=== PATIENT | male | born 1940 | race Caucasian/White ===

== ENCOUNTER 2022-09-25 21:09 | Inpatient (IN) | payer OTHER, SELFPAY ==
[2022-09-25] VITALS (14 sets, daily range): BP systolic 80–138; BP diastolic 53–100; PULSE 89–113; RESP 14–20; TEMP 35.6–36.2; O2SAT 92–100; BMI 24.1; BMI 21.2
--- NOTE | 2022-09-25 21:15 | EKG12_ITS ---
Test Reason : UNRESPONSIVWE Blood Pressure : / mmHG Vent. Rate : 093 BPM Atrial Rate : 000 BPM P-R Int : 000 ms QRS Dur : 094 ms QT Int : 364 ms P-R-T Axes : 000 086 254 degrees QTc Int : 452 ms Atrial fibrillation Cannot rule out Anterior infarct , age undetermined Abnormal ECG Confirmed by BOBBI KEE, NAYELY ([id number]), photographic editor JOSE JEFFERSON ([id number]) on 09/27/2022 9:13:40 AM Referred By: JOSE DE JESUS Confirmed By:NAYELY MARTINES MD
[2022-09-25 21:27] LABS: Bacteria 0 SEEN /hpf (None Seen); Mucous, Urine 0 SEEN /hpf (<or=2+); White Blood Cells 0 SEEN /hpf (0-5)
[2022-09-25 21:29] LABS: Color, Urine Yellow (Yellow); Glucose, Dipstick Normal (Normal); Ketone-Dipstick Negative (Negative); Leukocyte Esterase-Dipstick Negative /ul (Negative); Nitrite-Dipstick Negative (Negative); Occult Blood-Urine 10 /ul (Negative); Protein-Dipstick 100 mg/dl (Negative); Specific Gravity, Urine 1.025 (1.002-1.030); Urine Bilirubin Dipstick Negative (Negative); Urine Clarity Sl. Cloudy (Clear); Urine Urobilinogen 1 mg/dl (Normal)
[2022-09-25 21:31] LABS: Absolute Lymphocyte Count 0.76 X10^3/uL (0.83-4.51); Absolute Neutrophil Count 10.1 X10^3/uL (2.0-7.7); Basophil# 0.06 X10^3/uL; Basophil% 0.5 % (0-1); Lymphocyte # 0.76 X10^3/ul (0.83-4.51); Lymphocyte % 6.2 % (19-41); Mean Corpuscular Hgb 28.6 pg (27.0-32.0); Mean Corpuscular Volume 105.7 fL (80-94); Mean Platelet Vol. 11.1 fl (6.2-12.0); Monocyte# 1.11 X10^3/uL; NRBC Flagged by Analyzer 0 % (0-5); Neutrophil # 10.14 X10^3/uL (2.7-7.7); Neutrophil % 82.2 % (47-70); Platelet Count 133 K/mm3 (150-450); White Blood Count 12.3 K/mm3 (4.4-11.0)
--- NOTE | 2022-09-25 21:31 | EDS_ITS ---
HPI History of Present Illness Chief Complaint: CPR Detail of Chief Complaint: Decreased mental status at home Informant: family and EMS Onset/Context/Timing Onset: Today and Hours Context: Gradual Onset Timing: Continuous Current Severity: Severe Maximum Severity: Severe Associated Symptoms Associated Symptoms: abdominal pain, chest pain, chills, cough, fever, vomiting, diarrhea, palpitations and suicidal thoughts Narrative Narrative: 82-year-old male past medical history of prior GI bleed, coronary artery disease, COPD on 3 L at home. He is on chronic anticoagulation for A-fib. He takes Eliquis. Patient is unable to give any history due to having a i-gel airway in place. I have been intubated him. Per the son and I believe [id number] he recently just in the last week or so moved from [place] to [place] to be with family. They state he was in [facility] within the last 2 months. They found coronary artery disease but due to his overall medical condition they did not feel like he was an operative candidate. Reportedly had a GI bleed recently and was hospitalized for that. Patient had no complaints the last several days. He did have increased swelling in his feet that got better. Today had no complaints. He was not complaining of headache nor chest pain or shortness of breath. He became unresponsive in a recliner. They were really unable to arouse him and called the squad. Squad thought the family had started CPR they told me they had not. Prior similar symptoms: No Recent Illness/Hospitalization: Yes PFSH PFSH Medical History unable to obtain no medical history (COPD on 3 L. History of A-fib. Chronic anticoagulation on Eliquis. Recent GI bleed.) Allergy/AdvReac Type Severity Reaction Status Date / Time No Known Allergies Allergy Verified 09/25/22 21:41 ROS ROS ED ROS Narrative Family denies any recent illness the last several days. Unable to obtain any review of systems or history from the patient due to being intubated. Review of Systems ROS Unobtainable: due to endotracheal tube EXAM Physical Exam Narrative Exam Narrative: 82-year-old male brought in by squad. Unresponsive to either noxious or verbal stimuli. Not moving his extremities. I-gel in place. He does have a bounding radial, carotid and femoral pulses. H EENT exam eyes are closed. Moist weeks membranes. Thick phlegm in the posterior pharynx. Neck nontender. No JVD. Trachea midline. Lungs coarse breath sounds bilaterally. No wheezing. Heart A-fib rate of 93. Chest wall no gross abnormalities. No crepitance. No bony deformities. Abdomen is soft, nontender, nondistended. No signs of obstruction. External exam unremarkable. Montgomery catheter placed by nurses. Clear yellow urine. Extremities he is bilateral trace ankle and foot edema. Currently he is not really moving his extremities. There is no deformities. Neurologically he is intubated. He does not spontaneously open his eyes. He does have some apneic at times of breathing. He is not moving his extremities. He is not trying to talk. He is basically unresponsive. Const Vital Signs: 09/25/22 21:10 09/25/22 21:28 09/25/22 21:34 Temperature 96.0 F L Temperature Source Temporal Pulse Rate 94 105 H 104 H Respiratory Rate 16 14 Blood Pressure 122/70 H 95/61 111/87 H Blood Pressure Mean 87 72 95 Pulse Ox 100 Oxygen Delivery Method Ambu-Bag Mechanical Ventilator Ambu-Bag Positive well nourished and well developed; Negative for obese, cachectic, contractures or unkempt General Appearance ED: well developed and pallor; Negative for unkempt, cachectic, contractures or NAD Nutritional Appearance: Negative for cachectic or obese HEENT normocephalic and atraumatic; Negative for trauma, cyanosis of lips/distal nose or tenderness Eyes PERRL; Negative for EOMs intact bilaterally General Eye ED: Negative for pale conjunctiva Neck No full ROM, no lymphadenopathy, supple and no JVD Carotids: Negative for other Cardio regular rate, regular rhythm, S1 normal heart sound and S2 normal heart sound Cardio Narrative: A-fib rate in 90s. Rhythm: abnormal rhythm GI non-tender, non-distended and no masses Inspection: Negative for abdominal distention Auscultation: normoactive bowel sounds Palpation: soft; Negative for tender or guarding Neuro No oriented x3 Neuro Narrative: Unresponsive. Intubated. Not moving his extremities. Agonal attempts of breathing. Sensorium / Orientation: Negative for alert Motor Exam: Negative for strength 5/5 throughout Psych Negative for mental status grossly normal Psych Narrative: Unable to assess at this time. Appearance: Negative for unkempt Skin General Skin Exam: pallor; Negative for jaundice Lesions: no lesions Rashes: no rashes Trauma: Negative for abrasion or laceration MDM MDM MDM Narrative Medical decision making narrative: 82-year-old male reportedly recently hospitalized in [place] has known coronary disease that they felt was nonoperative. History of COPD on 3 L at home. History of A-fib on Eliquis. Found unresponsive today at home by family. Squad was called. He presented with i-gel airway in place that was converted over to an ET tube on first attempt. He has thick white tracheal secretions. Received a liter of normal saline. Differential would include sepsis, respiratory failure, cardiovascular collapse, acute coronary event, versus many etiologies. Respiratory was having difficulty ventilating the patient and was getting very low tidal volume sleeping on pressure support which is doing much better. He was also given aerosol treatments and will receive IV Solu-Medrol. His chest x- ray looks like a right lower lobe pneumonia he will be started on IV Zosyn and vancomycin. I will speak to the hospitalist about admission. Spoke to the patient's son at length. They want him treated aggressively. However if his heart stops they do not want CPR or him to be shocked. They are comfortable at this time with IV fluids, antibiotics, medications as needed. And ventilatory support. History & Record Review Discussion w/independent historian: EMS personnel and Family Additional record(s) reviewed:: No prior records Lab Data Attestation: I reviewed the patient's lab results. Lab results narrative: CBC shows a white count 12.3. H&H of 10.0 and 37. Platelets of 133,000. We have no old labs available for comparison. He is never been to this facility. Chemistries show a gap of 0. BUN 35 creatinine 1. Glucose 146. Liver enzymes are normal. 0.6. PT/INR 13 and 1. PTT 29. Urinalysis is unremarkable. No nitrites. No white or red cells. No bacteria. Chest x-ray ET tube is in good position. Several centimeters above the mario. Both lung live are expanded. No pneumothorax. Looks like the right lower lobe pneumonia. Normal cardiac silhouette. EKG is A-fib with a rate of 93. ABG is consistent with a respiratory acidosis with a pH of 7.161. PCO2 of 128. PO2 of 417. O2 sat 99%. Labs: Laboratory Results - last 24 hr 09/25/22 09/25/22 09/25/22 21:10 21:10 21:10 WBC 12.3 H RBC 3.50 L Hgb 10.0 L Hct 37.0 L MCV 105.7 H MCH 28.6 MCHC 27.0 L RDW Std Deviation 59.0 H RDW Coeff of Cory 15.0 H Plt Count 133 L MPV 11.1 Immature Gran % (Auto) 2.100 H Neut % (Auto) 82.2 H Lymph % (Auto) 6.2 L [place] % (Auto) 9.0 Eos % (Auto) 0.0 Baso % (Auto) 0.5 Absolute Neuts (auto) 10.1 H Absolute Lymphs (auto) 0.76 L Nucleated RBC % 0 PT 13.2 INR 1.0 APTT 29.6 Sodium 142 Potassium 4.7 Chloride 98 Carbon Dioxide 44.0 H Anion Gap 0 L BUN 35 H Creatinine 1.05 Estim Creat Clear Calc 53.38 Est GFR (MDRD) Af Amer 87 Est GFR (MDRD) Non-Af 72 BUN/Creatinine Ratio 33.3 H Glucose 146 H Lactic Acid Calcium 9.0 Total Bilirubin 0.30 AST 31 ALT 37 Alkaline Phosphatase 77 Troponin I High Sens 34 Total Protein 6.8 Albumin 2.8 L Globulin 4.0 Albumin/Globulin Ratio 0.7 L Urine Color Urine Clarity Urine pH Ur Specific [place] Urine Protein Urine Glucose (UA) Urine Ketones Urine Occult Blood Urine Nitrite Urine Bilirubin Urine Urobilinogen Ur Leukocyte Esterase Urine RBC Urine WBC Ur Squamous Epith Cells Urine Bacteria Hyaline Casts Urine Mucus 09/25/22 09/25/22 21:10 21:15 WBC RBC Hgb Hct MCV MCH MCHC RDW Std Deviation RDW Coeff of Cory Plt Count MPV Immature Gran % (Auto) Neut % (Auto) Lymph % (Auto) [place] % (Auto) Eos % (Auto) Baso % (Auto) Absolute Neuts (auto) Absolute Lymphs (auto) Nucleated RBC % PT INR APTT Sodium Potassium Chloride Carbon Dioxide Anion Gap BUN Creatinine Estim Creat Clear Calc Est GFR (MDRD) Af Amer Est GFR (MDRD) Non-Af BUN/Creatinine Ratio Glucose Lactic Acid 0.6 Calcium Total Bilirubin AST ALT Alkaline Phosphatase Troponin I High Sens Total Protein Albumin Globulin Albumin/Globulin Ratio Urine Color Yellow Urine Clarity Sl. Cloudy Urine pH 5.0 Ur Specific [place] 1.025 Urine Protein 100 H Urine Glucose (UA) Normal Urine Ketones Negative Urine Occult Blood 10 H Urine Nitrite Negative Urine Bilirubin Negative Urine Urobilinogen 1 H Ur Leukocyte Esterase Negative Urine RBC 0-5 SEEN Urine WBC 0 SEEN Ur Squamous Epith Cells 0-5 SEEN Urine Bacteria 0 SEEN Hyaline Casts 10-25 SEEN Urine Mucus 0 SEEN Radiography Chest X-Ray - ED: 1 View, Read by ED Physician and Right Infiltrate Diagnostic Testing: Clinical Impression(s) from Imaging Studies Chest X-Ray 09/25/22 21:35 IMPRESSION: 1. Endotracheal tube with the tip above the mario. 2. Nasogastric tube with the tip below the diaphragm. 3. Emphysema with bibasilar atelectasis. Electronically Signed: Wicho Pena MD at 22:02 EDT , Chest x-ray, portable, single view, interpreted by myself shows ET tube in good position above the mario. OG in good position in the stomach. Bilateral lung live are inflated. Right lower lobe pneumonia. Chronic changes consistent with COPD. No pneumothorax. Chronic changes. Normal cardiac silhouette. Rhythm Strip Rhythm Strip: A-fib Rate: 93 Ectopy: None EKG Initial EKG: Attestation: I personally reviewed and interpreted this EKG as follows: Interpretation: No Acute Injury Pattern and Atrial Fibrillation Comments: Acute atrial fibrillation rate of 93 no acute signs of NH or ischemia. No old EKG available for comparison. Prior EKG tracings: not available for review Prior: No Prior Procedures Other Procedures Procedure(s): Tracheal intubation: Use Mac blade. Placed 7/2 ET tube on first attempt. Thick secretions posteriorly in the pharynx and trachea. Suctioned and sent for sputum culture. Bilateral breath sounds heard with bagging. Pulse ox 100% on ventilator. No sedation was required. Critical Care Time Critical Care Time: Yes Critical care time (excluding procedures): 30-74 minutes, Including time spent:, Discussing w/Patient &/or Family/Parking Lot Attendant And Cashier, Discussing w/Consultants, Arranging Admission or Transfer, Performing Direct Patient Care at Bedside and - (33 min) Discharge Plan Dx/Rx/DC Orders Clinical Impression: Acute respiratory failure, Endotracheally intubated, History of COPD, History of CAD (coronary artery disease), History of GI bleed, History of atrial fibrillation, Chronic anticoagulation, Pneumonia, Acute respiratory acidosis, Anemia Disposition Disposition: Acute Care Hospital [facility]
[2022-09-25] MEDS: 0.9% Normal Saline 1,000 ML 999 ML IV (21:32)
[2022-09-25] MEDS: LORazepam 2 MG/ML Syringe IV (21:33)
--- NOTE | 2022-09-25 21:35 | RAD_ITS ---
STUDY: X-RAY CHEST REASON FOR EXAM: Male, 82 years old. full arrest TECHNIQUE: Single AP portable view of the chest. COMPARISON: None. FINDINGS: Endotracheal tube with the tip approximately 6 cm above the mario. Nasogastric tube with tip below the diaphragm. There is hyperinflation of the lungs consistent with chronic obstructive lung disease (COPD). Alveolar opacities in both lung bases consistent with bibasilar atelectasis There is no demonstrated pleural abnormality. Normal size heart. Normal mediastinum and alexandro. Normal visualized pulmonary arteries. Normal visualized aortic arch and descending thoracic aorta. Normal visualized thoracic spine. Normal visualized ribs, clavicles, and shoulders. There is no demonstrated abnormality of the visualized soft tissue structures of the upper abdomen. RAD/Chest 1 View (Portable) IMPRESSION: 1. Endotracheal tube with the tip above the mairo. 2. Nasogastric tube with the tip below the diaphragm. 3. Emphysema with bibasilar atelectasis. Electronically Signed: Wicho Pena MD at 22:02 EDT ,
[2022-09-25 21:37] LABS: Red Blood Cells-Urine 0-5 SEEN /hpf (0-5); Squamous Epithelial Cells - UA 0-5 SEEN /hpf (0-5)
[2022-09-25 21:38] LABS: Hyaline Cast 10-25 SEEN /lpf (0-5)
[2022-09-25 21:39] LABS: Partial Thromboplast Time 29.6 Seconds (24.1-36.2); Prothrombin Time (Protime)PT. 13.2 SECONDS (11.7-14.9)
[2022-09-25 21:51] LABS: ALB/GLOB Ratio 0.7 RATIO (0.9-2.4); AST(SGOT) 31 U/L (15-37); Alanine Aminotransfer ALT/SGPT 37 U/L (16-61); Albumin, Serum 2.8 g/dL (3.2-5.0); Alkaline Phosphatase 77 U/L (45-117); Anion Gap 0 (5-15); BUN 35 mg/dL (7-18); BUN/Creat Ratio 33.3 RATIO (10-20); Chloride 98 mmol/L (98-107); Creatinine, Serum 1.05 mg/dL (0.70-1.30); EST Glomerular Filtration Rate 72 mL/min (>60); Est Glom Filt Rate - Afr Amer 87 mL/min (>60); Estimated Creatinine Clearance 53.38 ml/min; Glucose 146 mg/dL (74-106); Potassium 4.7 mmol/L (3.5-5.1); Protein, Total 6.8 g/dL (6.4-8.2); Sodium Level 142 mmol/L (136-145); Troponin-I HS 34 pg/mL (3.0-78.0)
[2022-09-25 21:56] LABS: Lactic Acid 0.6 mmol/L (0.4-1.9)
[2022-09-25] MEDS: Propofol 10MG/Ml 1,000 MG/100 ML Bottle 4.3 MG CONT INF (21:56)
[2022-09-25] MEDS: MethylPREDNISolone 125 MG/2 ML Vial IV (22:02)
[2022-09-25] MEDS: Ceftriaxone 1 GM/50 ML BAG IV (22:03)
[2022-09-25 22:07] LABS: Allen Test Positive; Base Excess 17 mmol/L (-2 to +2); Bicarbonate 45.8 mmol/L (22-26); Blood Gas Specimen Type ART; FI02 100; O2 Delivery Device Bagging; PO2 418 mmHG (75-100); SITE L Radial; SO2 100 % (95-99); Total Carbon Dioxide 50 mmol/L; pCO2 128.2 mmHg (35-45); pH 7.16 (7.35-7.45)
--- NOTE | 2022-09-25 22:07 | PCM.HP.STD ---
HPI - General General Date of Admission: 09/25/22 Date of Service: 09/25/22 Chief Complaint: Unresponsive HPI Narrative MOISÉS HILL, is a 82 M with a significant history of COPD; atrial fibrillation and tobacco abuse who presents emergency department with unresponsiveness. Reportedly patient became unresponsive whiles in a recliner. Reportedly patient's used to live at [place]. He came to live with his son about 3 days before presentation. He was admitted at [facility] in [place] for about 2 weeks and then was discharged to a rehab facility and then sent back to [facility]. Reportedly at [facility] a lump was taken from his colon. Also he was found to have a blockage in his coronary. However, because of his age he was considered not to be surgical candidate. On the day of presentation a his son who was at the bedside and who the patient came to live with him after relocating from [place], 3 days before presentation stated that patient was drooling and then he became unresponsive and was gasping for air. Patient did not require any CPR. He was given 500mL bolus by paramedics. At the emergency department he was given additional 1 L bolus normal saline. Reportedly patient's bilateral feet has been swollen since he came to live with his son and family thinks that the swelling has improved since presentation. [facility] Medical History History of atrial fibrillation History of COPD Medical History no medical history Home Medications albuterol sulfate 90 mcg/actuation aerosol inhaler 1 puff inhalation Q6H Check with primary doctor 09/26/22 [History Last Taken Unknown] apixaban 2.5 mg PO/SL BID Check with primary doctor 09/26/22 [History Last Taken Unknown] aripiprazole 5 mg tablet 5 mg PO DAILY Check with primary doctor 09/26/22 [History Last Taken Unknown] cyanocobalamin (vitamin B-12) 1 cap PO/SL DAILY Check with primary doctor 09/26/22 [History Last Taken Unknown] digoxin 125 mcg (0.125 mg) tablet 125 mcg PO QODAY Check with primary doctor 09/26/22 [History Last Taken Unknown] finasteride 5 mg tablet 5 mg PO DAILY Check with primary doctor 09/26/22 [History Last Taken Unknown] furosemide 20 mg tablet 20 mg PO DAILY PRN Dyspnea 09/26/22 [History Last Taken Unknown] magnesium oxide 1 tab PO/SL BID magnesium replacement 09/26/22 [History Last Taken Unknown] metoprolol succinate 100 mg tablet,extended release 24 hr 100 mg PO DAILY heart rate 09/26/22 [History Last Taken Unknown] metoprolol tartrate 150 mg PO/SL BID Check with primary doctor 09/26/22 [History Last Taken Unknown] pantoprazole 40 mg tablet,delayed release (Protonix) 40 mg PO DAILY gerd 09/26/22 [History Last Taken Unknown] tamsulosin 0.4 mg capsule 0.4 mg PO DAILY Check with primary doctor 09/26/22 [History Last Taken Unknown] Allergy/AdvReac Type Severity Reaction Status Date / Time No Known Allergies Allergy Verified 09/25/22 21:41 Family History (Updated 09/25/22 @ 22:[address] Baldev Perez MD) Other S/P colon polypectomy Surgical History unable to obtain unable to obtain Social History Smoking Status: Current every day smoker tobacco type: cigarettes ROS Review of Systems ROS Unobtainable: other Details: Pertinent positives and pertinent negatives that could be provided by patient's family is as noted in HPI. All other systems were reviewed patient's family did not know or they were negative. Vital Signs Vital Signs Vital Signs: 09/25/22 21:10 09/25/22 21:28 09/25/22 21:34 Temperature 96.0 F L Temperature Source Temporal Pulse Rate 94 105 H 104 H Respiratory Rate 16 14 Blood Pressure 122/70 H 95/61 111/87 H Blood Pressure Mean 87 72 95 Pulse Ox 100 Oxygen Delivery Method Ambu-Bag Mechanical Ventilator Ambu-Bag 09/25/22 21:58 Temperature Temperature Source Pulse Rate Respiratory Rate Blood Pressure Blood Pressure Mean Pulse Ox 100 Oxygen Delivery Method Mechanical Ventilator Weight Weight: 72.121 kg Body Mass Index (BMI) 24.1 Physical Exam Narrative Physical exam: General: Intubated and sedated mechanical ventilation. Head: Normocephalic, atraumatic, no tenderness Eyes: Intubated sedated mechanical ventilation. ENT, no trauma, no rhinorrhea Neck: Nontender, No thyromegaly. CVS: Regular rate and rhythm. S1-S2 present. No murmur, gallop or rub. Respiratory : Diminished, wheezes, rhonchi.Chest wall nontender Abdomen: Soft, nontender, nondistended, normal bowel sounds, no masses : Deferred Back: Nontender, no CVA tenderness. Extremities: Swelling of bilateral feet. Skin: Normal color, no trauma, abrasions Neuro: Intubated sedated mechanical ventilation Psychiatry: Intubated sedated mechanical ventilation Results Lab / Micro Data Result Diagrams: 09/25/22 21:10 09/25/22 21:10 Labs: Laboratory Results - last 24 hr 09/25/22 21:10: Sodium 142, Potassium 4.7, Chloride 98, Carbon Dioxide 44.0 H, Anion Gap 0 L, BUN 35 H, Creatinine 1.05, Estim Creat Clear Calc 53.38, Est GFR (MDRD) Af Amer 87, Est GFR (MDRD) Non-Af 72, BUN/Creatinine Ratio 33.3 H, Glucose 146 H, Calcium 9.0, Total Bilirubin 0.30, AST 31, ALT 37, Alkaline Phosphatase 77, Troponin I High Sens 34, Total Protein 6.8, Albumin 2.8 L, Globulin 4.0, Albumin/Globulin Ratio 0.7 L 09/25/22 21:10: WBC 12.3 H, RBC 3.50 L, Hgb 10.0 L, Hct 37.0 L, MCV 105.7 H, MCH 28.6, MCHC 27.0 L, RDW Std Deviation 59.0 H, RDW Coeff of Cory 15.0 H, Plt Count 133 L, MPV 11.1, Immature Gran % (Auto) 2.100 H, Neut % (Auto) 82.2 H, Lymph % (Auto) 6.2 L, [place] % (Auto) 9.0, Eos % (Auto) 0.0, Baso % (Auto) 0.5, Absolute Neuts (auto) 10.1 H, Absolute Lymphs (auto) 0.76 L, Nucleated RBC % 0 09/25/22 21:10: PT 13.2, INR 1.0, APTT 29.6 09/25/22 21:10: Lactic Acid 0.6 09/25/22 21:15: Urine Color Yellow, Urine Clarity Sl. Cloudy, Urine pH 5.0, Ur Specific [place] 1.025, Urine Protein 100 H, Urine Glucose (UA) Normal, Urine Ketones Negative, Urine Occult Blood 10 H, Urine Nitrite Negative, Urine Bilirubin Negative, Urine Urobilinogen 1 H, Ur Leukocyte Esterase Negative, Urine RBC 0-5 SEEN, Urine WBC 0 SEEN, Ur Squamous Epith Cells 0-5 SEEN, Urine Bacteria 0 SEEN, Hyaline Casts 10-25 SEEN, Urine Mucus 0 SEEN Micro: Microbiology 09/25/22 21:35 Sputum, Induced/Lukens Gram Stain - Preliminary Rhythm Strip Rhythm Strip: A-fib Rate: 93 Ectopy: None Radiology Impression Chest X-Ray 09/25/22 21:35 IMPRESSION: 1. Endotracheal tube with the tip above the mario. 2. Nasogastric tube with the tip below the diaphragm. 3. Emphysema with bibasilar atelectasis. Electronically Signed: Wicho Pena MD at 22:02 EDT , Assessment & Plan Assessment/Plan (1) Hypercapnic respiratory failure: (2) Pneumonia: (3) COPD exacerbation: PLAN: Plan Sepsis secondary to pneumonia The patient presented with sepsis due to (pneumonia) with acute sepsis related organ dysfunction as evidenced by (hypotension and acute hypercapnic respiratory failure). SIRS criteria: Temperature of less than 96.8 Fahrenheit on presentation. Heart rate more than 90 WBC more than 12,000 organ dysfunction: SBP less than 90 Acute respiratory failure Lactic acid 0.6. With recent admission at [facility] discussed with ED doctor who started patient on vancomycin and Zosyn. Vancomycin and Zosyn continued. Blood cultures x2 ordered emergency department, follow. Urine culture and sputum culture ordered emergency department, follow. Streptococcus urine antigen and Legionella urine antigen ordered. Radiologist impression of chest x-ray:1.? Endotracheal tube with the tip above the mario. 2.? Nasogastric tube with the tip below the diaphragm. 3.? Emphysema with bibasilar atelectasis. Check chest x-ray was independently visualized and interpreted I agree with the interpretation. Additionally the infiltrates in the right side of the lung. Trend CBC and CMP. Admit intensive care unit. Passenger T[employer] Inspector consult. Acute hypercapnic respiratory failure/acute encephalopathy ABG with initial pH of 7.16 and PCO2 of 128.2. Started on vent at the emergency department; after Igel was replaced with ET tube. Admitted to ICU mechanical ventilation. Passenger T[employer] Inspector consult. Trend ABG. GI prophylaxis and DVT prophylaxis ordered. Scheduled DuoNeb. Albuterol ordered. Solu-Medrol ordered. A-fib A-fib with a controlled rate, stable. Eliquis continued. Digoxin level ordered emergency department, normal. Hold metoprolol secondary to hypotension. Anemia Hemoglobin presentation was 10. Unclear whether acute or chronic. Ordered to obtain records from [facility] sent from the ED. Trend CBC. DVT prophylaxis: Not indicated as patient is on Eliquis, Eliquis continued. Sepsis Attestation Sepsis Alert: Yes Sepsis Attestation: Sepsis Ruled Out Date exam was performed: 09/25/22 Time exam was performed: 03:10 Possible Source of Sepsis: Pulmonary Sepsis Organ Dysfunction Criteria Present: SBP < 90 mmHg or MAP < 65 mmHg and Acute Respiratory Failure (New need for BiPAP/CPAP or MV) Fluid Resuscitation Fluid resuscitation indicated?: Yes Fluid Resuscitation ordered: Lesser volume fluid bolus ordered Amount of fluid ordered: 1,500 Reason for lesser fluid bolus:: BP Responded to a lesser volume Charges/Coding Visit Charges Inpatient E&M: 26357 Init Hosp L3
[2022-09-25 22:08] LABS: Digoxin Level 0.81 ng/mL (0.80-2.00)
--- NOTE | 2022-09-25 22:24 | CPS ---
CRITICAL ABG VALUES, DR. STEWART AWARE
--- NOTE | 2022-09-25 22:29 | CT_ITS ---
STUDY: CT BRAIN WITHOUT CONTRAST REASON FOR EXAM: Male, 82 years old. mental status change RADIATION DOSAGE (If Supplied By Facility): CTDIvol = ( 44.99 ) mGy, DLP = ( 931.09 ) mGycm TECHNIQUE: Transaxial CT imaging of the brain was performed without administration of intravenous contrast material. Individualized dose optimization techniques were used for this CT. COMPARISON: No relevant priors. FINDINGS: Normal soft tissue structures. Normal calvarium. Normal size ventricles and extra-axial spaces for the patient''s age. Mild white matter microangiopathic ischemic changes of the cerebral hemispheres. Normal basal ganglia and thalami. Normal brainstem. Normal cerebellum. There is no intracranial hemorrhage. There are no findings of an acute ischemic infarction. Normal visualized paranasal sinuses. CT/Brain/Head without Contrast IMPRESSION: No acute intracranial pathology of the brain. Electronically Signed: Cachorro Aguilera DO at 23:30 EDT ,
[2022-09-25] MEDS: Albuterol 2.5 MG/3 ML VIAL.NEB. INHALATION ×2 (22:44)
[2022-09-25] MEDS: Ipratropium/Albuterol Sulfate 3 ML AMPUL.NEB INHALATION (22:44)
[2022-09-26] VITALS (41 sets, daily range): BP systolic 94–168; BP diastolic 55–99; PULSE 84–128; RESP 16–27; TEMP 36.2–38; O2SAT 92–115; BMI 21.2
--- NOTE | 2022-09-26 00:09 | ED.RN ---
2115: Concerned for patient pulling at tubes, restraints applied.
[2022-09-26] MEDS: Ipratropium/Albuterol Sulfate 3 ML AMPUL.NEB INHALATION ×7 (00:12→23:05)
[2022-09-26 00:16] LABS: Allen Test Positive; Base Excess 16 mmol/L (-2 to +2); Bicarbonate 42.3 mmol/L (22-26); Blood Gas Specimen Type ART; FI02 40; Mode AC; O2 Delivery Device ET Tube; PEEP 5; PO2 108 mmHG (75-100); RR 16; SITE R Radial; SO2 97 % (95-99); Total Carbon Dioxide 45 mmol/L; Vt 450; pCO2 80.5 mmHg (35-45); pH 7.33 (7.35-7.45)
[2022-09-26] MEDS: fentaNYL drip 100 ML 2.5 MCG CONT INF (00:30)
--- NOTE | 2022-09-26 00:32 | CPS ---
Critical blood gas values, Dr. Perez aware
[2022-09-26] MEDS: 0.9% Saline Lock 10 ML Syringe IV (00:34)
--- NOTE | 2022-09-26 00:45 | PCM.RX.CS ---
Consult Pharmacy has been consulted to manage selected antiobiotic: Vancomycin Type of Consult: New start Suspected Infection: Pneumonia Prior Doses of Antibiotics Received/Current Regimen: Medications Vancomycin HCl 750 mg/ Sodium (Chloride) 265 mls @ 250 mls/hr IV Q12H KEELY Discontinued Medications Vancomycin HCl 1,750 mg/ (Sodium Chloride) 535 mls @ 250 mls/hr IV X1 ONE Stop: 09/26/22 00:22 Last Admin: 09/25/22 23:24 Dose: 250 mls/hr Labs: Sodium 142 mmol/L (136-145) 09/25/22 21:10 Potassium 4.7 mmol/L (3.5-5.1) 09/25/22 21:10 Chloride 98 mmol/L (98-107) 09/25/22 21:10 Carbon Dioxide 44.0 mmol/L (21.0-32.0) H 09/25/22 21:10 Anion Gap 0 (5-15) L 09/25/22 21:10 BUN 35 mg/dL (7-18) H 09/25/22 21:10 Creatinine 1.05 mg/dL (0.70-1.30) 09/25/22 21:10 Est GFR (MDRD) Af Amer 87 mL/min (>60) 09/25/22 21:10 Est GFR (MDRD) Non-Af 72 mL/min (>60) 09/25/22 21:10 BUN/Creatinine Ratio 33.3 RATIO (10-20) H 09/25/22 21:10 Glucose 146 mg/dL (74-106) H 09/25/22 21:10 Microbiology: Microbiology 09/25/22 21:35 Sputum, Induced/Lukens Gram Stain - Preliminary Weight used for dosin kg Estimated Creatinine Clearance: 53 Goal Trough: 15-20 mcg/mL Pharmacy Plan for Drug Dosing: Pharmacy Service will continue to monitor and adjust dosing as required. Follow-Up Labs: Trough Vancomycin Labs to be done on [date and time ordered]: 09/27/22 @1100
[2022-09-26 01:15] LABS: CPK Total, Creatine Kinase 28 U/L (39-308); Triglycerides 70 mg/dL
[2022-09-26] MEDS: Methylprednisolone Sod Succ 40 MG/ML VIAL IV ×3 (05:11→22:00)
[2022-09-26] MEDS: guaiFENesin 10 ML UDC (200MG/10ML) 20 ML NG ×4 (05:11→23:12)
[2022-09-26] MEDS: CHLORHEXIDINE GLUC 2% CLOTH 1 EACH TOWELETTE TOPICAL (05:15)
[2022-09-26 05:18] LABS: Absolute Neutrophil Count 9.9 X10^3/uL (2.0-7.7); Basophil# 0.02 X10^3/uL; Basophil% 0.2 % (0-1); Hematocrit 32.3 % (40-54); Hemoglobin 9.1 g/dL (13.0-16.5); Lymphocyte % 1.9 % (19-41); Mean Corp Hgb Conc 28.2 g/dL (32-36); Mean Corpuscular Hgb 28.3 pg (27.0-32.0); Mean Corpuscular Volume 100.6 fL (80-94); Mean Platelet Vol. 11.4 fl (6.2-12.0); Monocyte# 0.29 X10^3/uL; Monocyte% 2.8 % (0-10); NRBC Flagged by Analyzer 0 % (0-5); Neutrophil # 9.91 X10^3/uL (2.7-7.7); Neutrophil % 94.5 % (47-70); POSITIVE DIFFERENTIAL YES; Platelet Count 106 K/mm3 (150-450); RBC Distribution Width CV 15.2 % (11.6-14.6); Red Blood Count 3.21 M/mm3 (4.6-6.2); White Blood Count 10.5 K/mm3 (4.4-11.0)
[2022-09-26 05:19] LABS: Differential Indicated SCAN CRITERIA MET
[2022-09-26 05:58] LABS: ALB/GLOB Ratio 0.6 RATIO (0.9-2.4); AST(SGOT) 25 U/L (15-37); Alanine Aminotransfer ALT/SGPT 28 U/L (16-61); Albumin, Serum 2.4 g/dL (3.2-5.0); Alkaline Phosphatase 64 U/L (45-117); Anion Gap 5 (5-15); BUN 33 mg/dL (7-18); BUN/Creat Ratio 26.6 RATIO (10-20); Calcium,Total 8.6 mg/dL (8.5-10.1); Chloride 101 mmol/L (98-107); Creatinine, Serum 1.24 mg/dL (0.70-1.30); EST Glomerular Filtration Rate 59 mL/min (>60); Est Glom Filt Rate - Afr Amer 72 mL/min (>60); Globulin 3.7 g/dL (2.2-4.2); Glucose 179 mg/dL (74-106); Magnesium 1.7 mg/dL (1.6-2.6); Phosphorus 1.3 mg/dL (2.5-4.9); Potassium 3.5 mmol/L (3.5-5.1); Protein, Total 6.1 g/dL (6.4-8.2); Sodium Level 143 mmol/L (136-145)
[2022-09-26 06:23] LABS: Anisocytosis 1+; Macrocytosis 1+; Platelet Estimate SLT DEC (ADEQ)
--- NOTE | 2022-09-26 06:56 | EX.PCM.CONCC ---
Assessment & Plan Assessment/Plan (1) Acute respiratory failure: (2) COPD exacerbation: PLAN: Plan RECOMMENDATIONS: 1. Continue assist-control mode of mechanical ventilation. Wean FiO2 and PEEP to maintain saturations at or above 90%. 2. Continue empiric antimicrobials, pending infectious work-up. 3. Continue scheduled bronchodilators and IV steroids. 4. Obtain echocardiogram. 5. Continue systemic anticoagulation per home regimen. 6. Continue beta-mariluz. 7. Initiate appropriate GI prophylaxis. 8. Okay to initiate tube feeds today. IMPRESSIONS: 1. Acute on chronic respiratory failure with hypercapnia and hypoxemia The patient has an apparent baseline oxygen requirement of 3 L/min along with COPD of unknown severity. The exact etiology for his acute presentation is not entirely clear. While underlying pulmonary infection is a possibility, I cannot discount the possibility of a cardiac contribution, given the patient's history of coronary artery disease. Therefore, we will obtain an echocardiogram. The patient will be continued on empiric antimicrobials, pending infectious work-up, along with scheduled bronchodilators and steroids. We will work to obtain medical records from his recent hospitalization in [place]. Ultimately, the patient would likely benefit from outpatient pulmonary follow-up after his discharge from hospital. 2. History of coronary artery disease/paroxysmal atrial fibrillation Continue home beta-mariluz regimen for now. If heart rates remain uncontrolled, will consider amiodarone. Echocardiogram is pending. 3. Anemia/thrombocytopenia Unclear chronicity. Continue to monitor blood counts daily. Transfuse if hemoglobin drops below 7 g/dL. TIME: 34 minutes of critical care time, independent of procedures, was spent addressing the patient's acute on chronic respiratory failure with hypercapnia and hypoxemia, review of all data and collaboration with the care team. HPI Consult Data Date of Consult: 09/26/22 HPI Narrative Reason for Consultation: Acute respiratory failure HPI Narrative: The patient is an 82-year-old male, with a history as outlined below, who presented to the emergency department via EMS on September 25 after becoming unresponsive at home. The patient recently relocated from [place] and has a known history of COPD of unknown severity, chronic hypoxemic respiratory failure with a baseline 3 L/min oxygen requirement, history of GI bleed and coronary artery disease. The patient was recently hospitalized in [place] approximately 1 month ago. However, the details of that hospitalization are not currently known. On presentation to the emergency department, the patient was documented to have a temperature of 96 ?F. The patient was mildly tachycardic. Initial laboratory evaluation demonstrated an elevated white blood cell count to 12,300. Coagulation profile was unremarkable. Chemistry profile was notable for a bicarbonate of 44 and normal creatinine. Glucose was within normal limits. Lactate was within normal limits. Urine analysis was noncontributory. The patient's initial ABG demonstrated a pH of 7.16 with a PCO2 of 128 and PO2 of 418. Troponin was negative. CT head demonstrated no acute intracranial pathology. The patient was ultimately intubated in the emergency department. He was initiated on broad-spectrum antimicrobials along with scheduled bronchodilators and IV steroids. The patient was admitted to the medical intensive care unit for further management. [facility] Medical History History of atrial fibrillation History of COPD Medical History no medical history Home Medications albuterol sulfate 90 mcg/actuation aerosol inhaler 1 puff inhalation Q6H Check with primary doctor 09/26/22 [History Last Taken Unknown] apixaban 2.5 mg PO/SL BID Check with primary doctor 09/26/22 [History Last Taken Unknown] aripiprazole 5 mg tablet 5 mg PO DAILY Check with primary doctor 09/26/22 [History Last Taken Unknown] cyanocobalamin (vitamin B-12) 1 cap PO/SL DAILY Check with primary doctor 09/26/22 [History Last Taken Unknown] digoxin 125 mcg (0.125 mg) tablet 125 mcg PO QODAY Check with primary doctor 09/26/22 [History Last Taken Unknown] finasteride 5 mg tablet 5 mg PO DAILY Check with primary doctor 09/26/22 [History Last Taken Unknown] furosemide 20 mg tablet 20 mg PO DAILY PRN Dyspnea 09/26/22 [History Last Taken Unknown] magnesium oxide 1 tab PO/SL BID magnesium replacement 09/26/22 [History Last Taken Unknown] metoprolol succinate 100 mg tablet,extended release 24 hr 100 mg PO DAILY heart rate 09/26/22 [History Last Taken Unknown] metoprolol tartrate 150 mg PO/SL BID Check with primary doctor 09/26/22 [History Last Taken Unknown] pantoprazole 40 mg tablet,delayed release (Protonix) 40 mg PO DAILY gerd 09/26/22 [History Last Taken Unknown] tamsulosin 0.4 mg capsule 0.4 mg PO DAILY Check with primary doctor 09/26/22 [History Last Taken Unknown] Allergy/AdvReac Type Severity Reaction Status Date / Time No Known Allergies Allergy Verified 09/25/22 21:41 Family History (Updated 09/25/22 @ 22:[address] Baldev Perez MD) Other S/P colon polypectomy Surgical History unable to obtain Social History Smoking Status: Current every day smoker tobacco type: cigarettes ROS Review of Systems ROS Unobtainable: due to endotracheal tube Physical Exam Const Constitutional Narrative: Intubated, sedated and mechanically ventilated. HEENT normocephalic and head/scalp atraumatic Mouth: endotracheal tube in place and OG tube in place Eyes PERRL and EOMs intact bilaterally Neck supple General: trachea midline Resp Auscultation: wheezes and diminished lung sounds Cardio S1 normal heart sound and S2 normal heart sound Rate: tachycardic Rhythm: abnormal rhythm GI normal to inspection, nondistended, normoactive bowel sounds Extremity General Extremity: edema bilateral lower extremity; Negative for clubbing Skin no rashes or lesions noted Neuro Sensorium / Orientation: sedated on vent Lab / Micro Data Result Diagrams: 09/26/22 04:55 09/26/22 04:55 Labs: Laboratory Results - last 24 hr 09/25/22 21:10: Sodium 142, Potassium 4.7, Chloride 98, Carbon Dioxide 44.0 H, Anion Gap 0 L, BUN 35 H, Creatinine 1.05, Estim Creat Clear Calc 53.38, Est GFR (MDRD) Af Amer 87, Est GFR (MDRD) Non-Af 72, BUN/Creatinine Ratio 33.3 H, Glucose 146 H, Calcium 9.0, Total Bilirubin 0.30, AST 31, ALT 37, Alkaline Phosphatase 77, Troponin I High Sens 34, Total Protein 6.8, Albumin 2.8 L, Globulin 4.0, Albumin/Globulin Ratio 0.7 L 09/25/22 21:10: WBC 12.3 H, RBC 3.50 L, Hgb 10.0 L, Hct 37.0 L, MCV 105.7 H, MCH 28.6, MCHC 27.0 L, RDW Std Deviation 59.0 H, RDW Coeff of Cory 15.0 H, Plt Count 133 L, MPV 11.1, Immature Gran % (Auto) 2.100 H, Neut % (Auto) 82.2 H, Lymph % (Auto) 6.2 L, Mckean % (Auto) 9.0, Eos % (Auto) 0.0, Baso % (Auto) 0.5, Absolute Neuts (auto) 10.1 H, Absolute Lymphs (auto) 0.76 L, Nucleated RBC % 0 09/25/22 21:10: PT 13.2, INR 1.0, APTT 29.6 09/25/22 21:10: Lactic Acid 0.6 09/25/22 21:10: Digoxin 0.81 09/25/22 21:10: Total Creatine Kinase 28 L, Triglycerides 70 09/25/22 21:15: Urine Color Yellow, Urine Clarity Sl. Cloudy, Urine pH 5.0, Ur Specific [place] 1.025, Urine Protein 100 H, Urine Glucose (UA) Normal, Urine Ketones Negative, Urine Occult Blood 10 H, Urine Nitrite Negative, Urine Bilirubin Negative, Urine Urobilinogen 1 H, Ur Leukocyte Esterase Negative, Urine RBC 0-5 SEEN, Urine WBC 0 SEEN, Ur Squamous Epith Cells 0-5 SEEN, Urine Bacteria 0 SEEN, Hyaline Casts 10-25 SEEN, Urine Mucus 0 SEEN 09/26/22 04:55: WBC 10.5, RBC 3.21 L, Hgb 9.1 L, Hct 32.3 L, MCV 100.6 H, MCH 28.3, MCHC 28.2 L, RDW Std Deviation 57.0 H, RDW Coeff of Ocry 15.2 H, Plt Count 106 L, MPV 11.4, Immature Gran % (Auto) 0.600, Neut % (Auto) 94.5 H, Lymph % (Auto) 1.9 L, Mckean % (Auto) 2.8, Eos % (Auto) 0.0, Baso % (Auto) 0.2, Absolute Neuts (auto) 9.9 H, Absolute Lymphs (auto) 0.20 L, Nucleated RBC % 0, Platelet Estimate SLT DEC, Anisocytosis 1+, Macrocytosis 1+ 09/26/22 04:55: Sodium 143, Potassium 3.5, Chloride 101, Carbon Dioxide 37.0 H, Anion Gap 5, BUN 33 H, Creatinine 1.24, Estim Creat Clear Calc 41.90, Est GFR (MDRD) Af Amer 72, Est GFR (MDRD) Non-Af 59 L, BUN/Creatinine Ratio 26.6 H, Glucose 179 H, Calcium 8.6, Phosphorus 1.3 L, Magnesium 1.7, Total Bilirubin 0.40, AST 25, ALT 28, Alkaline Phosphatase 64, Total Protein 6.1 L, Albumin 2.4 L, Globulin 3.7, Albumin/Globulin Ratio 0.6 L Micro: Microbiology 09/25/22 21:15 Urine Catheter - [place] Legionella Antigen - Final 09/25/22 21:15 Urine Catheter - [place] Streptococcus pneumoniae Antigen (M - Final 09/25/22 21:35 Sputum, Induced/Lukens Gram Stain - Preliminary ABG Data ABG results: ABG 09/25/22 09/26/22 22:01 00:12 Specimen Type ART ART Sample Site L Radial R Radial pH 7.16 L* 7.33 L Bicarbonate Actual 45.8 H 42.3 H Total CO2 50 45 Base Excess 17 H 16 H O2 Saturation 100 H 97 O2 % 100 40 ABG pCO2 128.2 H* 80.5 H* ABG pO2 418 H* 108 H Vicente Test Positive Positive Respiration Rate 16 O2 Delivery Device Bagging ET Tube Vent Mode AC Tidal Volume 450 POC PEEP 5 Crit Call To/Read Back Yes Yes Blood Gas Notified Whom amaya Rhythm Strip Rhythm Strip: A-fib Rate: 93 Ectopy: None Radiology Impression Chest X-Ray 09/25/22 21:35 IMPRESSION: 1. Endotracheal tube with the tip above the mario. 2. Nasogastric tube with the tip below the diaphragm. 3. Emphysema with bibasilar atelectasis. Electronically Signed: Wicho Pean MD at 22:02 EDT , Brain CT 09/25/22 22:29 IMPRESSION: No acute intracranial pathology of the brain. Electronically Signed: Cachorro Aguilera DO at 23:30 EDT , Charges/Coding Procedures Hospitalists Procedures: [id number] [place] Hr
--- NOTE | 2022-09-26 07:11 | PCM.RX.CS ---
Consult Type of Consult: Follow-up Suspected Infection: Pneumonia Labs: Sodium 143 mmol/L (136-145) 09/26/22 04:55 Potassium 3.5 mmol/L (3.5-5.1) 09/26/22 04:55 Chloride 101 mmol/L (98-107) 09/26/22 04:55 Carbon Dioxide 37.0 mmol/L (21.0-32.0) H 09/26/22 04:55 Anion Gap 5 (5-15) 09/26/22 04:55 BUN 33 mg/dL (7-18) H 09/26/22 04:55 Creatinine 1.24 mg/dL (0.70-1.30) 09/26/22 04:55 Est GFR (MDRD) Af Amer 72 mL/min (>60) 09/26/22 04:55 Est GFR (MDRD) Non-Af 59 mL/min (>60) L 09/26/22 04:55 BUN/Creatinine Ratio 26.6 RATIO (10-20) H 09/26/22 04:55 Glucose 179 mg/dL (74-106) H 09/26/22 04:55 Microbiology: Microbiology 09/25/22 21:15 Urine Catheter - [place] Legionella Antigen - Final 09/25/22 21:15 Urine Catheter - [place] Streptococcus pneumoniae Antigen (M - Final 09/25/22 21:35 Sputum, Induced/Lukens Gram Stain - Preliminary Goal Trough: 15-20 mcg/mL Pharmacy Plan for Drug Dosing: DAILY ASSESSMENT Current Vancomycin Dose: 750mg Q12H Number of Doses Received: 1750mg x1 Current Renal Function: sCr 1.24 (CrCl 41.9) Renal Function Trend: slightly declined Lab/Micro: blood and respiratory cx pending Any Change in Vanc Plan: Yes - adjust to Vancomycin 500mg Q12H Pending Level: Vancomycin trough @ 1100 09/27/22 Pharmacy Service will continue to monitor and adjust dosing as required. Labs to be done on [date and time ordered]: Vancomycin trough @ 1100 09/27/22
[2022-09-26] MEDS: Metoprolol Tartrate 50 MG Tablet 150 MG PO ×2 (08:26→21:59)
[2022-09-26] MEDS: APIXABAN 2.5 MG TABLET (WCH) PO ×2 (08:27→21:59)
[2022-09-26] MEDS: Finasteride 5 MG Tablet PO (08:27)
[2022-09-26] MEDS: Cyanocobalamin 500 MCG Tablet 1000 MCG PO (08:27)
[2022-09-26] MEDS: Magnesium Chloride 64 MG Delay Rel.Tablet 128 MG PO ×2 (08:27→22:00)
[2022-09-26] MEDS: ARIPiprazole 5 MG Tablet PO (08:27)
[2022-09-26] MEDS: Chlorhexidine 15 ML PO ×2 (08:28→21:59)
--- NOTE | 2022-09-26 09:45 | CASEMGMT ---
JESSI BREWER Face to Face with sonKenji, for initial transition planning/care coordination assessment as patient is currently intubated. JESSI BREWER introduced self and role at [facility]. Son willing to participate in assessment and is able to answer all questions appropriately. Care providers, pharmacy, and demographics verified. Discharge disposition TBD, anticipate SNF vs hospice as son mentioned he was going to working on setting up hospice at home. SW notified of SNF vs Hospice, will monitor progress with therapy. Son states he has no further needs or concerns at this time. CM to follow for discharge planning needs that may arise. PCP: No PCP, [place] here [place] Specialists: none Preferred Pharmacy: [facility] Insurance: [place], [facility] Prescription Benefit: son was not sure Living Will/HPOA: son was not sure if patient has AD LNOK: son, niece Living Arrangements: Patient is staying with son in a single story home with 3 steps and railing to enter the home. Son was assisting patient at times with ADLs Transportation: Niece DME/HHC: Patient has shower chair, raised toilet, nebulizer, pulse ox, electric WC and Scooter, home oxygen with portable oxygen concentrator. Disposition Plan: TBD by course fo treatment and progress with therapy. Anticipate SNF vs Hospice. Marion GUPTA, RN, CM
--- NOTE | 2022-09-26 09:58 | PN.HOSP_ITS ---
Subjective Subjective Intubated and sedated. No new issues since admission Objective Data Objective Data Vital Signs: Vital Signs Temp Pulse Resp BP Pulse Ox O2 Del Method O2 Flow Rate 100.2 F H 112 H 16 118/76 94 Mechanical Ventilator 30 09/26/22 07:00 09/26/22 08:55 09/26/22 08:55 09/26/22 08:26 09/26/22 08:55 09/26/22 08:00 09/26/22 08:00 FiO2 30 09/26/22 08:55 Oxygen Flow Rate (L/min) 30 Oxygen Delivery Method Mechanical Ventilator Weight: 139 lb 12.369 oz Body Mass Index (BMI) 21.2 Intake & Output: Intake and Output for Last 24 Hours 09/25/22 09/26/22 09/27/22 03:59 03:59 03:59 Intake Total 1191.78 / 1255.36 682.58 / 682.58 Output Total 275 / 275 Balance 1191.78 / 980.36 407.58 / 407.58 Lab / Micro Data Result Diagrams: 09/26/22 04:55 09/26/22 04:55 Labs: Laboratory Results - last 24 hr 09/25/22 21:10: Sodium 142, Potassium 4.7, Chloride 98, Carbon Dioxide 44.0 H, Anion Gap 0 L, BUN 35 H, Creatinine 1.05, Estim Creat Clear Calc 53.38, Est GFR (MDRD) Af Amer 87, Est GFR (MDRD) Non-Af 72, BUN/Creatinine Ratio 33.3 H, Glucose 146 H, Calcium 9.0, Total Bilirubin 0.30, AST 31, ALT 37, Alkaline Phosphatase 77, Troponin I High Sens 34, Total Protein 6.8, Albumin 2.8 L, Globulin 4.0, Albumin/Globulin Ratio 0.7 L 09/25/22 21:10: WBC 12.3 H, RBC 3.50 L, Hgb 10.0 L, Hct 37.0 L, MCV 105.7 H, MCH 28.6, MCHC 27.0 L, RDW Std Deviation 59.0 H, RDW Coeff of Cory 15.0 H, Plt Count 133 L, MPV 11.1, Immature Gran % (Auto) 2.100 H, Neut % (Auto) 82.2 H, Lymph % (Auto) 6.2 L, [place] % (Auto) 9.0, Eos % (Auto) 0.0, Baso % (Auto) 0.5, Absolute Neuts (auto) 10.1 H, Absolute Lymphs (auto) 0.76 L, Nucleated RBC % 0 09/25/22 21:10: PT 13.2, INR 1.0, APTT 29.6 09/25/22 21:10: Lactic Acid 0.6 09/25/22 21:10: Digoxin 0.81 09/25/22 21:10: Total Creatine Kinase 28 L, Triglycerides 70 09/25/22 21:15: Urine Color Yellow, Urine Clarity Sl. Cloudy, Urine pH 5.0, Ur Specific [place] 1.025, Urine Protein 100 H, Urine Glucose (UA) Normal, Urine Ketones Negative, Urine Occult Blood 10 H, Urine Nitrite Negative, Urine Bilirubin Negative, Urine Urobilinogen 1 H, Ur Leukocyte Esterase Negative, Urine RBC 0-5 SEEN, Urine WBC 0 SEEN, Ur Squamous Epith Cells 0-5 SEEN, Urine Bacteria 0 SEEN, Hyaline Casts 10-25 SEEN, Urine Mucus 0 SEEN 09/26/22 04:55: WBC 10.5, RBC 3.21 L, Hgb 9.1 L, Hct 32.3 L, MCV 100.6 H, MCH 28.3, MCHC 28.2 L, RDW Std Deviation 57.0 H, RDW Coeff of Cory 15.2 H, Plt Count 106 L, MPV 11.4, Immature Gran % (Auto) 0.600, Neut % (Auto) 94.5 H, Lymph % (Auto) 1.9 L, [place] % (Auto) 2.8, Eos % (Auto) 0.0, Baso % (Auto) 0.2, Absolute Neuts (auto) 9.9 H, Absolute Lymphs (auto) 0.20 L, Nucleated RBC % 0, Platelet Estimate SLT DEC, Anisocytosis 1+, Macrocytosis 1+ 09/26/22 04:55: Sodium 143, Potassium 3.5, Chloride 101, Carbon Dioxide 37.0 H, Anion Gap 5, BUN 33 H, Creatinine 1.24, Estim Creat Clear Calc 41.90, Est GFR (MDRD) Af Amer 72, Est GFR (MDRD) Non-Af 59 L, BUN/Creatinine Ratio 26.6 H, Glucose 179 H, Calcium 8.6, Phosphorus 1.3 L, Magnesium 1.7, Total Bilirubin 0.40, AST 25, ALT 28, Alkaline Phosphatase 64, Total Protein 6.1 L, Albumin 2.4 L, Globulin 3.7, Albumin/Globulin Ratio 0.6 L Micro: Microbiology 09/25/22 21:35 Sputum, Induced/Lukens Gram Stain - Final 09/25/22 21:15 Urine Catheter - [place] Legionella Antigen - Final 09/25/22 21:15 Urine Catheter - [place] Streptococcus pneumoniae Antigen (M - Final ABG Data ABG results: ABG 09/25/22 09/26/22 22:01 00:12 Specimen Type ART ART Sample Site L Radial R Radial pH 7.16 L* 7.33 L Bicarbonate Actual 45.8 H 42.3 H Total CO2 50 45 Base Excess 17 H 16 H O2 Saturation 100 H 97 O2 % 100 40 ABG pCO2 128.2 H* 80.5 H* ABG pO2 418 H* 108 H Vicente Test Positive Positive Respiration Rate 16 O2 Delivery Device Bagging ET Tube Vent Mode AC Tidal Volume 450 POC PEEP 5 Crit Call To/Read Back Yes Yes Blood Gas Notified Whom amaya Radiography Diagnostic Testing: Radiology Impression Chest X-Ray 09/25/22 21:35 IMPRESSION: 1. Endotracheal tube with the tip above the mario. 2. Nasogastric tube with the tip below the diaphragm. 3. Emphysema with bibasilar atelectasis. Electronically Signed: Wicho Pena MD at 22:02 EDT , Brain CT 09/25/22 22:29 IMPRESSION: No acute intracranial pathology of the brain. Electronically Signed: Cachorro Aguilera DO at 23:30 EDT , Rhythm Strip Rhythm Strip: A-fib Rate: 93 Ectopy: None Physical Exam Const General Appearance: intubated and patient mechanically ventilated HEENT normocephalic Eyes PERRL and conjunctivae normal Neck supple and no JVD Resp normal respiratory effort, no retractions and no use of accessory muscles Auscultation: wheezes; Negative for crackles, rales or rhonchi Cardio regular rate, regular rhythm, S1 normal heart sound, S2 normal heart sound and no murmurs GI soft to palpation and non-distended; Negative for hepatosplenomegaly Extremity no clubbing, cyanosis or edema Skin no rashes or lesions noted Neuro Sensorium / Orientation: sedated on vent Psych Appearance: intubated Assessment & Plan Assessment/Plan (1) Hypercapnic respiratory failure: (2) Pneumonia: (3) COPD exacerbation: PLAN: Plan 1. Acute hypoxic and hypercapnic respiratory failure/anemia and thrombocytopenia ? Unclear if he also meets sepsis criteria as there is no obvious signs of in fection at this time, and urine is clean and chest x-ray did not definitively demonstrate a consolidation ? PCO2 on his ABG is improving with intubation ? Echo is pending ? Given the uncertainty of an infectious source continue with broad-spectrum empiric antibiotics ? Continue with steroids ? We will continue to monitor his anemia and thrombocytopenia, currently unclear as to the etiology 2. A-fib/CAD/HTN ? Continue with Eliquis ? We will continue metoprolol ? We will hold Lasix ? Echo is pending 3. GERD ? Stable ? Continue with PPI 4. Anxiety/depression ? Stable ? Continue with Abilify DVT: Eliquis Charges/Coding Visit Charges Inpatient E&M: 29531 Subs Hosp L2
--- NOTE | 2022-09-26 10:04 | CASEMGMT ---
Addendum entered by Mayra Saenz 09/26/22 12:24: Social Work SW received a call back from [facility], pt is 40% service connected. COURTNEY Saul Original Note: Social Work SW participated in ICU rounds today, pt's son present. CM spoke w/son, there is a possibility SNF could be needed at some point. SW called SW Vivek Lesliepayam at the [facility], message left inquiring if pt is service connected. COURTNEY Saul
[2022-09-26] MEDS: Vital AF 1.2 Cal Liquid 1,000 ML 20 ML GT (10:43)
[2022-09-26] MEDS: Vancomycin IV 500 MG/100 ML BAG 100 MG IV ×2 (11:20→23:07)
[2022-09-26] MEDS: Propofol 10MG/Ml 1,000 MG/100 ML Bottle 4.3 MG CONT INF (12:34)
[2022-09-27] VITALS (41 sets, daily range): BP systolic 106–180; BP diastolic 66–110; PULSE 65–143; RESP 11–18; TEMP 36.4–36.9; O2SAT 94–100; BMI 21.4
[2022-09-27] MEDS: Ipratropium/Albuterol Sulfate 3 ML AMPUL.NEB INHALATION ×6 (02:45→22:58)
[2022-09-27] MEDS: guaiFENesin 10 ML UDC (200MG/10ML) 20 ML NG ×4 (05:20→23:01)
[2022-09-27] MEDS: Methylprednisolone Sod Succ 40 MG/ML VIAL IV ×3 (05:21→21:10)
[2022-09-27] MEDS: Propofol 10MG/Ml 1,000 MG/100 ML Bottle 6.5 MG CONT INF (07:00)
--- NOTE | 2022-09-27 07:08 | PN.CC_ITS ---
Assessment & Plan Assessment/Plan (1) Acute respiratory failure: (2) COPD exacerbation: PLAN: Plan RECOMMENDATIONS: 1. Continue assist-control mode of mechanical ventilation. Wean FiO2 and PEEP to maintain saturations at or above 90%. 2. Continue empiric antimicrobials, pending infectious work-up. 3. Continue scheduled bronchodilators and IV steroids. 4. Continue systemic anticoagulation per home regimen. 5. Continue beta-mariluz. 6. Continue appropriate GI prophylaxis. 7. Continue tube feeds as tolerated. IMPRESSIONS: 1. Acute on chronic respiratory failure with hypercapnia and hypoxemia The patient has an apparent baseline oxygen requirement of 3 L/min along with COPD of unknown severity. The exact etiology for his acute presentation is not entirely clear. While underlying pulmonary infection is a possibility, I cannot discount the possibility of a cardiac contribution, given the patient's history of coronary artery disease. However, echocardiogram was unrevealing. In general, the patient is improving from a respiratory perspective. He will be continued on empiric antimicrobials, pending infectious work-up, along with scheduled bronchodilators and steroids. Ultimately, the patient would likely b enefit from outpatient pulmonary follow-up after his discharge from hospital. 2. History of coronary artery disease/paroxysmal atrial fibrillation Continue home beta-mariluz regimen for now. If heart rates remain uncontrolled, will consider amiodarone. 3. Anemia/thrombocytopenia Unclear chronicity. Continue to monitor blood counts daily. Transfuse if hemoglobin drops below 7 g/dL. TIME: 32 minutes of critical care time, independent of procedures, was spent addressing the patient's acute on chronic respiratory failure with hypercapnia and hypoxemia, review of all data and collaboration with the care team. Subjective Subjective The patient was seen and examined at the bedside this morning. Events from the last 24 hours have been reviewed. The patient remains afebrile hemodynamically stable. Today is vent day #3. The patient became increasingly tachycardic during his spontaneous breathing trial this morning. He remains on assist control with an FiO2 requirement of 30% and PEEP of 5. The patient is currently documented to be overall net +1.6 L for the hospitalization. Objective Data Objective Data The patient's most recent lab work, culture data and imaging studies have all been personally reviewed. Surface echocardiogram demonstrated normal LV size and function with an ejection fraction of 60%. Mild to moderate tricuspid valve insufficiency was noted along with a pulmonary artery systolic pressure of 36 mmHg. Vital Signs: Vital Signs Temp Pulse Resp BP Pulse Ox O2 Del Method O2 Flow Rate 98.4 F 116 H 18 121/70 H 97 Mechanical Ventilator 30 09/27/22 06:00 09/27/22 06:49 09/27/22 06:49 09/27/22 06:00 09/27/22 06:49 09/27/22 06:00 09/26/22 08:00 FiO2 30 09/27/22 06:00 Oxygen Flow Rate (L/min) 30 Oxygen Delivery Method Mechanical Ventilator Weight: 141 lb 8.588 oz Body Mass Index (BMI) 21.4 Intake & Output: Intake and Output for Last 24 Hours 09/25/22 09/26/22 09/27/22 23:59 23:59 23:59 Intake Total 1152.13 / 1152.13 1649.24 / 1658.24 468.33 / 468.33 Output Total 1175 / 1225 475 / 475 Balance 1152.13 / 1152.13 474.24 / 433.24 -6.67 / -6.67 Lab / Micro Data Attestation: I reviewed the patient's lab results. Result Diagrams: 09/27/22 07:20 09/27/22 07:20 Micro: Microbiology 09/25/22 21:35 Sputum, Induced/Lukens Gram Stain - Final 09/25/22 21:35 Sputum, Induced/Lukens Respiratory Culture - Preliminary Appears to be normal respiratory cedric. Further studies to follow. 09/25/22 21:15 Urine Catheter - [place] Legionella Antigen - Final 09/25/22 21:15 Urine Catheter - [place] Streptococcus pneumoniae Antigen (M - Final Rhythm Strip Rhythm Strip: A-fib Rate: 93 Ectopy: None Physical Exam Const Constitutional Narrative: Intubated, sedated and mechanically ventilated. HEENT normocephalic and head/scalp atraumatic Mouth: endotracheal tube in place and OG tube in place Eyes PERRL and EOMs intact bilaterally Neck supple General: trachea midline Resp Auscultation: wheezes and diminished lung sounds Cardio S1 normal heart sound and S2 normal heart sound Rate: tachycardic Rhythm: abnormal rhythm GI normal to inspection, nondistended, normoactive bowel sounds Extremity General Extremity: edema bilateral lower extremity; Negative for clubbing Skin no rashes or lesions noted Neuro Sensorium / Orientation: sedated on vent Charges/Coding Procedures Hospitalists Procedures: [id number] Critial Care 1st Hr
[2022-09-27 07:31] LABS: Absolute Lymphocyte Count 0.58 X10^3/uL (0.83-4.51); Absolute Neutrophil Count 18.6 X10^3/uL (2.0-7.7); Basophil# 0.02 X10^3/uL; Basophil% 0.1 % (0-1); Hematocrit 28.8 % (40-54); Hemoglobin 8.9 g/dL (13.0-16.5); Lymphocyte # 0.58 X10^3/ul (0.83-4.51); Lymphocyte % 2.9 % (19-41); Mean Corp Hgb Conc 30.9 g/dL (32-36); Mean Corpuscular Hgb 28.9 pg (27.0-32.0); Mean Corpuscular Volume 93.5 fL (80-94); Mean Platelet Vol. 11.7 fl (6.2-12.0); Monocyte# 0.72 X10^3/uL; Monocyte% 3.6 % (0-10); NRBC Flagged by Analyzer 0 % (0-5); Neutrophil # 18.57 X10^3/uL (2.7-7.7); Neutrophil % 92.7 % (47-70); POSITIVE DIFFERENTIAL YES; Platelet Count 145 K/mm3 (150-450); RBC Distribution Width CV 16.1 % (11.6-14.6); RBC Distribution Width SD 54.4 fl (35.1-43.9); Red Blood Count 3.08 M/mm3 (4.6-6.2)
[2022-09-27 07:32] LABS: Differential Indicated SCAN CRITERIA MET
[2022-09-27 07:46] LABS: Anion Gap 3 (5-15); BUN 33 mg/dL (7-18); BUN/Creat Ratio 29.2 RATIO (10-20); Calcium,Total 9.3 mg/dL (8.5-10.1); Chloride 99 mmol/L (98-107); Creatinine, Serum 1.13 mg/dL (0.70-1.30); EST Glomerular Filtration Rate 66 mL/min (>60); Est Glom Filt Rate - Afr Amer 80 mL/min (>60); Estimated Creatinine Clearance 46.56 ml/min; Glucose 146 mg/dL (74-106); Magnesium 2.3 mg/dL (1.6-2.6); Phosphorus 2.6 mg/dL (2.5-4.9); Potassium 4.1 mmol/L (3.5-5.1); Sodium Level 139 mmol/L (136-145)
[2022-09-27] MEDS: Metoprolol Tartrate 50 MG Tablet 150 MG PO ×2 (08:33→21:10)
[2022-09-27] MEDS: Magnesium Chloride 64 MG Delay Rel.Tablet 128 MG PO (08:34)
[2022-09-27] MEDS: ARIPiprazole 5 MG Tablet PO (08:34)
[2022-09-27] MEDS: Chlorhexidine 15 ML PO ×2 (08:35→21:09)
[2022-09-27] MEDS: APIXABAN 2.5 MG TABLET (WCH) PO ×2 (08:35→21:10)
[2022-09-27] MEDS: Cyanocobalamin 500 MCG Tablet 1000 MCG PO (08:35)
[2022-09-27] MEDS: Finasteride 5 MG Tablet PO (08:35)
[2022-09-27] MEDS: CHLORHEXIDINE GLUC 2% CLOTH 1 EACH TOWELETTE TOPICAL (08:37)
--- NOTE | 2022-09-27 08:50 | PCM.PN.HOSP ---
Subjective Subjective Intubated and sedated, no issues overnight Objective Data Objective Data Vital Signs: Vital Signs Temp Pulse Resp BP Pulse Ox O2 Del Method O2 Flow Rate 98.4 F 127 H 15 106/70 95 Mechanical Ventilator 30 09/27/22 08:00 09/27/22 08:33 09/27/22 08:00 09/27/22 08:33 09/27/22 08:00 09/27/22 08:00 09/26/22 08:00 FiO2 30 09/27/22 08:00 Oxygen Flow Rate (L/min) 30 Oxygen Delivery Method Mechanical Ventilator Weight: 141 lb 8.588 oz Body Mass Index (BMI) 21.4 Intake & Output: Intake and Output for Last 24 Hours 09/26/22 09/27/22 09/28/22 03:59 03:59 03:59 Intake Total 1191.78 / 1255.36 1795.59 / 1804.59 298.85 / 298.85 Output Total 1575 / 1575 75 / 75 Balance 1191.78 / 980.36 220.59 / 229.59 223.85 / 223.85 Lab / Micro Data Result Diagrams: 09/27/22 07:20 09/27/22 07:20 Labs: Laboratory Results - last 24 hr 09/27/22 07:20: WBC 20.0 H, RBC 3.08 L, Hgb 8.9 L, Hct 28.8 L, MCV 93.5 D, MCH 28.9, MCHC 30.9 L D, RDW Std Deviation 54.4 H, RDW Coeff of Cory 16.1 H, Plt Count 145 L, MPV 11.7, Immature Gran % (Auto) 0.700, Neut % (Auto) 92.7 H, Lymph % (Auto) 2.9 L, [place] % (Auto) 3.6, Eos % (Auto) 0.0, Baso % (Auto) 0.1, Absolute Neuts (auto) 18.6 H, Absolute Lymphs (auto) 0.58 L, Nucleated RBC % 0 09/27/22 07:20: Sodium 139, Potassium 4.1, Chloride 99, Carbon Dioxide 37.0 H, Anion Gap 3 L, BUN 33 H, Creatinine 1.13, Estim Creat Clear Calc 46.56, Est GFR (MDRD) Af Amer 80, Est GFR (MDRD) Non-Af 66, BUN/Creatinine Ratio 29.2 H, Glucose 146 H, Calcium 9.3, Phosphorus 2.6, Magnesium 2.3 Micro: Microbiology 09/25/22 21:15 Urine, Catheterized Urine Culture - Preliminary Culture exhibits no growth. 09/25/22 21:35 Sputum, Induced/Lukens Gram Stain - Final 09/25/22 21:35 Sputum, Induced/Lukens Respiratory Culture - Preliminary Appears to be normal respiratory cedric. Further studies to follow. 09/25/22 21:15 Urine Catheter - [place] Legionella Antigen - Final 09/25/22 21:15 Urine Catheter - [place] Streptococcus pneumoniae Antigen (M - Final Rhythm Strip Rhythm Strip: A-fib Rate: 93 Ectopy: None Physical Exam Const General Appearance: intubated and patient mechanically ventilated HEENT normocephalic Eyes PERRL and conjunctivae normal Neck supple and no JVD Resp normal respiratory effort, no retractions and no use of accessory muscles Auscultation: wheezes; Negative for crackles, rales or rhonchi Cardio regular rate, regular rhythm, S1 normal heart sound, S2 normal heart sound and no murmurs GI soft to palpation and non-distended; Negative for hepatosplenomegaly Extremity no clubbing, cyanosis or edema Skin no rashes or lesions noted Neuro Sensorium / Orientation: sedated on vent Psych Appearance: intubated Assessment & Plan Assessment/Plan (1) Hypercapnic respiratory failure: (2) Pneumonia: (3) COPD exacerbation: PLAN: Plan 1. Acute on chronic hypoxic and hypercapnic respiratory failure/anemia and thrombocytopenia ? Unclear if he also meets sepsis criteria as there is no obvious signs of infection at this time, and urine is clean and chest x-ray did not definitively demonstrate a consolidation, sputum culture is negative as are the urine cultures, blood cultures, Legionella antigen and Streptococcus pneumonia antigen ? Echo if of 60%, PASP of 36 mmHg and mean aortic valve gradient of 21 mmHg ? Given the uncertainty of an infectious source continue with broad-spectrum empiric antibiotics ? Continue with steroids ? We will continue to monitor his anemia and thrombocytopenia, currently unclear as to the etiology 2. A-fib/CAD/HTN ? Continue with Eliquis ? We will continue metoprolol ? We will hold Lasix 3. GERD ? Stable ? Continue with PPI 4. Anxiety/depression ? Stable ? Continue with Abilify DVT: Eliquis Charges/Coding Visit Charges Inpatient E&M: 83236 Subs Hosp L2
[2022-09-27] MEDS: Dexmedetomidine 400 mcg in 0.9% NS 96 mL 8 MCG CONT INF (09:20)
[2022-09-27] MEDS: Digoxin 125 MCG Tablet PO (09:21)
[2022-09-27] MEDS: fentaNYL drip 100 ML 2.5 MCG CONT INF (10:03)
[2022-09-27] MEDS: Vancomycin IV 500 MG/100 ML BAG 100 MG IV (11:05)
[2022-09-27 11:39] LABS: Vancomycin, Trough Level 28.8 ug/mL (5.0-15.0)
--- NOTE | 2022-09-27 12:03 | PCM.RX.CS ---
Consult Pharmacy has been consulted to manage selected antiobiotic: Vancomycin Type of Consult: Follow-up Suspected Infection: Pneumonia Prior Doses of Antibiotics Received/Current Regimen: current dose is vanc 500mg IV q12h Labs: Sodium 139 mmol/L (136-145) 09/27/22 07:20 Potassium 4.1 mmol/L (3.5-5.1) 09/27/22 07:20 Chloride 99 mmol/L (98-107) 09/27/22 07:20 Carbon Dioxide 37.0 mmol/L (21.0-32.0) H 09/27/22 07:20 Anion Gap 3 (5-15) L 09/27/22 07:20 BUN 33 mg/dL (7-18) H 09/27/22 07:20 Creatinine 1.13 mg/dL (0.70-1.30) 09/27/22 07:20 Est GFR (MDRD) Af Amer 80 mL/min (>60) 09/27/22 07:20 Est GFR (MDRD) Non-Af 66 mL/min (>60) 09/27/22 07:20 BUN/Creatinine Ratio 29.2 RATIO (10-20) H 09/27/22 07:20 Glucose 146 mg/dL (74-106) H 09/27/22 07:20 Vancomycin Trough 28.8 ug/mL (5.0-15.0) H 09/27/22 11:00 Microbiology: Microbiology 09/25/22 21:15 Urine, Catheterized Urine Culture - Preliminary Culture exhibits no growth. 09/25/22 21:35 Sputum, Induced/Lukens Gram Stain - Final 09/25/22 21:35 Sputum, Induced/Lukens Respiratory Culture - Preliminary Appears to be normal respiratory cedric. Further studies to follow. 09/25/22 21:15 Urine Catheter - [place] Legionella Antigen - Final 09/25/22 21:15 Urine Catheter - [place] Streptococcus pneumoniae Antigen (M - Final Weight used for dosin.2 kg Estimated Creatinine Clearance: 46.6ml/min Goal Trough: 15-20 mcg/mL Pharmacy Plan for Drug Dosing: The vanc trough drawn at 11:00 this morning (approx 12 hours after the last dose) was 28.8. This is above goal so will hold next dose. This morning's dose has already been given after the trough was drawn so will hold starting with tonight's dose. Will order a vanc random level to be drawn in 24 hours to see if dosing can be resumed tomorrow. Pharmacy Service will continue to monitor and adjust dosing as required. Follow-Up Labs: Trough Vancomycin - random Labs to be done on [date and time ordered]: 09/28/22 11:00
[2022-09-27] MEDS: Labetalol (Prefilled) 20 MG/4 ML IV ×2 (13:01→18:33)
[2022-09-27] MEDS: Dexmedetomidine 400 mcg in 0.9% NS 96 mL 14.4 MCG CONT INF ×2 (16:55→23:00)
[2022-09-27] MEDS: Vital AF 1.2 Cal Liquid 1,000 ML 55 ML GT (17:46)
[2022-09-27] MEDS: 0.9% Saline Lock 10 ML Syringe IV (18:33)
[2022-09-27 18:48] LABS: ALB/GLOB Ratio 0.6 RATIO (0.9-2.4); AST(SGOT) 19 U/L (15-37); Alanine Aminotransfer ALT/SGPT 26 U/L (16-61); Albumin, Serum 2.7 g/dL (3.2-5.0); Alkaline Phosphatase 69 U/L (45-117); Anion Gap 4 (5-15); BUN 30 mg/dL (7-18); BUN/Creat Ratio 31.2 RATIO (10-20); Calcium,Total 9.3 mg/dL (8.5-10.1); Chloride 98 mmol/L (98-107); Creatinine, Serum 0.96 mg/dL (0.70-1.30); EST Glomerular Filtration Rate 80 mL/min (>60); Est Glom Filt Rate - Afr Amer 96 mL/min (>60); Globulin 4.2 g/dL (2.2-4.2); Glucose 138 mg/dL (74-106); Potassium 3.8 mmol/L (3.5-5.1); Protein, Total 6.9 g/dL (6.4-8.2); Sodium Level 136 mmol/L (136-145)
[2022-09-27] MEDS: fentaNYL drip 100 ML 12.5 MCG CONT INF (21:15)
[2022-09-28] VITALS (27 sets, daily range): BP systolic 107–168; BP diastolic 69–98; PULSE 81–121; RESP 12–19; TEMP 36.9–37.9; O2SAT 92–99; BMI 19.8
[2022-09-28] MEDS: Dexmedetomidine 400 mcg in 0.9% NS 96 mL 19.3 MCG CONT INF (05:00)
[2022-09-28] MEDS: guaiFENesin 10 ML UDC (200MG/10ML) 20 ML NG (06:00)
[2022-09-28] MEDS: Methylprednisolone Sod Succ 40 MG/ML VIAL IV (06:00)
[2022-09-28 06:58] LABS: Allen Test Positive; Base Excess 12 mmol/L (-2 to +2); Bicarbonate 35.1 mmol/L (22-26); Blood Gas Specimen Type ART; FI02 30; Mode CPAP/PS; O2 Delivery Device Adult Vent; PEEP 5; PO2 70 mmHG (75-100); PS 5; SITE L Radial; SO2 95 % (95-99); Total Carbon Dioxide 37 mmol/L; pCO2 45.9 mmHg (35-45); pH 7.49 (7.35-7.45)
--- NOTE | 2022-09-28 07:17 | PN.CC_ITS ---
Assessment & Plan Assessment/Plan (1) Acute respiratory failure: (2) COPD exacerbation: PLAN: Plan RECOMMENDATIONS: 1. Proceed with a trial of extubation this morning. 2. Once extubated, wean supplemental oxygen to maintain saturations at or above 90%. 3. Recommend BiPAP utilization with naps and nightly. 4. Continue antimicrobials. 5. Continue bronchodilators and steroids. 6. Continue systemic anticoagulation per home regimen. 7. Continue beta-mariluz. 8. Encourage incentive spirometer use and mobilize patient as tolerated. IMPRESSIONS: 1. Acute on chronic respiratory failure with hypercapnia and hypoxemia The patient has an apparent baseline oxygen requirement of 3 L/min along with COPD of unknown severity. The exact etiology for his acute presentation is not entirely clear. While underlying pulmonary infection is a possibility, I cannot discount the possibility of a cardiac contribution, given the patient's history of coronary artery disease. However, echocardiogram was unrevealing. In general, the patient is improving from a respiratory perspective. He was ultimately able to be extubated on the morning of September 28. I would recommend that we continue empiric antimicrobials to complete 7 days of therapy. The patient will be continued on scheduled bronchodilators and steroids. 2. History of coronary artery disease/paroxysmal atrial fibrillation Continue home beta-mariluz regimen. 3. Anemia/thrombocytopenia Unclear chronicity. Continue to monitor blood counts daily. Transfuse if hemoglobin drops below 7 g/dL. TIME: 31 minutes of critical care time, independent of procedures, was spent addressing the patient's acute on chronic respiratory failure with hypercapnia and hypoxemia, review of all data and collaboration with the care team. Subjective Subjective The patient was seen and examined at the bedside this morning. Events from the last 24 hours have been reviewed. The patient is currently afebrile, hemodynamically stable and maintaining appropriate oxygen saturations with an FiO2 requirement of 30%. The patient passed his spontaneous breathing trial this morning. He is alert and following commands. The patient is currently documented to be overall net -3.7 L for the hospitalization. Objective Data Objective Data The patient's most recent lab work, culture data and imaging studies have all been personally reviewed. Surface echocardiogram demonstrated normal LV size and function with an ejection fraction of 60%. Mild to moderate tricuspid valve insufficiency was noted along with a pulmonary artery systolic pressure of 36 mmHg. Vital Signs: Vital Signs Temp Pulse Resp BP Pulse Ox O2 Del Method O2 Flow Rate 98.9 F 92 16 167/98 H 97 Mechanical Ventilator 30 09/28/22 02:00 09/28/22 02:00 09/28/22 02:00 09/28/22 02:00 09/28/22 02:00 09/28/22 02:00 09/26/22 08:00 FiO2 30 09/28/22 02:00 Oxygen Flow Rate (L/min) 30 Oxygen Delivery Method Mechanical Ventilator Weight: 141 lb 8.588 oz Body Mass Index (BMI) 21.4 Intake & Output: Intake and Output for Last 24 Hours 09/26/22 09/27/22 09/28/22 23:59 23:59 23:59 Intake Total 1649.24 / 1658.24 1873.47 / 1962.07 195.8 / 195.8 Output Total 1175 / 1225 6575 / 6575 800 / 800 Balance 474.24 / 433.24 -4701.53 / -4612.93 -604.2 / -604.2 Lab / Micro Data Attestation: I reviewed the patient's lab results. 09/28/22 03:30 09/28/22 03:30 Labs: Laboratory Results - last 24 hr 09/27/22 07:20: WBC 20.0 H, RBC 3.08 L, Hgb 8.9 L, Hct 28.8 L, MCV 93.5 D, MCH 28.9, MCHC 30.9 L D, RDW Std Deviation 54.4 H, RDW Coeff of Cory 16.1 H, Plt Count 145 L, MPV 11.7, Immature Gran % (Auto) 0.700, Neut % (Auto) 92.7 H, Lymph % (Auto) 2.9 L, [place] % (Auto) 3.6, Eos % (Auto) 0.0, Baso % (Auto) 0.1, Absolute Neuts (auto) 18.6 H, Absolute Lymphs (auto) 0.58 L, Nucleated RBC % 0, Sodium 139, Potassium 4.1, Chloride 99, Carbon Dioxide 37.0 H, Anion Gap 3 L, BUN 33 H, Creatinine 1.13, Estim Creat Clear Calc 46.56, Est GFR (MDRD) Af Amer 80, Est GF R (MDRD) Non-Af 66, BUN/Creatinine Ratio 29.2 H, Glucose 146 H, Calcium 9.3, Phosphorus 2.6, Magnesium 2.3 09/27/22 11:00: Vancomycin Trough 28.8 H 09/27/22 17:52: Sodium 136, Potassium 3.8, Chloride 98, Carbon Dioxide 34.0 H, Anion Gap 4 L, BUN 30 H, Creatinine 0.96, Estim Creat Clear Calc 54.80, Est GFR (MDRD) Af Amer 96, Est GFR (MDRD) Non-Af 80, BUN/Creatinine Ratio 31.2 H, Glucose 138 H, Calcium 9.3, Total Bilirubin 0.60, AST 19, ALT 26, Alkaline Phosphatase 69, Total Protein 6.9, Albumin 2.7 L, Globulin 4.2, Albumin/Globulin Ratio 0.6 L Micro: Microbiology 09/25/22 21:15 Urine, Catheterized Urine Culture - Preliminary Culture exhibits no growth. 09/25/22 21:35 Sputum, Induced/Lukens Gram Stain - Final 09/25/22 21:35 Sputum, Induced/Lukens Respiratory Culture - Preliminary Appears to be normal respiratory cedric. Further studies to follow. 09/25/22 21:15 Urine Catheter - [place] Legionella Antigen - Final 09/25/22 21:15 Urine Catheter - [place] Streptococcus pneumoniae Antigen (M - Final ABG Data ABG results: ABG 09/28/22 06:54 Specimen Type ART Sample Site L Radial pH 7.49 H Bicarbonate Actual 35.1 H Total CO2 37 Base Excess 12 H O2 Saturation 95 O2 % 30 ABG pCO2 45.9 H ABG pO2 70 L Vicente Test Positive O2 Delivery Device Adult Vent Vent Mode CPAP/PS POC PEEP 5 POC Pressure Suppt 5 Rhythm Strip Rhythm Strip: A-fib Rate: 93 Ectopy: None Physical Exam Const Constitutional Narrative: Remains intubated and mechanically ventilated. Tolerating spontaneous mode of mechanical ventilation. HEENT normocephalic and head/scalp atraumatic Mouth: endotracheal tube in place and OG tube in place Eyes PERRL and EOMs intact bilaterally Neck supple General: trachea midline Resp Auscultation: diminished lung sounds; Negative for rales, rhonchi or wheezes Cardio S1 normal heart sound and S2 normal heart sound Rhythm: abnormal rhythm GI normal to inspection, nondistended, normoactive bowel sounds Extremity General Extremity: edema bilateral lower extremity; Negative for clubbing Skin no rashes or lesions noted Neuro no focal motor deficits Neuro Narrative: Alert and following simple commands. Charges/Coding Procedures Hospitalists Procedures: [id number] Critial Care 1st Hr
[2022-09-28] MEDS: Ipratropium/Albuterol Sulfate 3 ML AMPUL.NEB INHALATION ×5 (07:19→23:16)
[2022-09-28 07:41] LABS: Absolute Lymphocyte Count 0.57 X10^3/uL (0.83-4.51); Absolute Neutrophil Count 18.3 X10^3/uL (2.0-7.7); Basophil# 0.02 X10^3/uL; Basophil% 0.1 % (0-1); Differential Indicated SCAN CRITERIA MET; Eosinophil# 0.07 X10^3/uL; Eosinophils% 0.4 % (0-5); Hematocrit 35.3 % (40-54); Hemoglobin 11.3 g/dL (13.0-16.5); Lymphocyte # 0.57 X10^3/ul (0.83-4.51); Lymphocyte % 2.9 % (19-41); Mean Corpuscular Volume 90.5 fL (80-94); Mean Platelet Vol. 11.1 fl (6.2-12.0); Monocyte# 0.48 X10^3/uL; Monocyte% 2.5 % (0-10); NRBC Flagged by Analyzer 0 % (0-5); Neutrophil # 18.27 X10^3/uL (2.7-7.7); Neutrophil % 93.3 % (47-70); POSITIVE DIFFERENTIAL YES; Platelet Count 146 K/mm3 (150-450); RBC Distribution Width SD 52.4 fl (35.1-43.9); White Blood Count 19.6 K/mm3 (4.4-11.0)
[2022-09-28 07:59] LABS: BUN 27 mg/dL (7-18); Glucose 145 mg/dL (74-106)
[2022-09-28 08:00] LABS: Anion Gap 6 (5-15); BUN/Creat Ratio 27.8 RATIO (10-20); Calcium,Total 9.3 mg/dL (8.5-10.1); Chloride 97 mmol/L (98-107); Creatinine, Serum 0.97 mg/dL (0.70-1.30); EST Glomerular Filtration Rate 79 mL/min (>60); Est Glom Filt Rate - Afr Amer 96 mL/min (>60); Estimated Creatinine Clearance 50.01 ml/min; Potassium 3.9 mmol/L (3.5-5.1); Sodium Level 137 mmol/L (136-145)
--- NOTE | 2022-09-28 08:58 | PCM.PN.HOSP ---
Subjective Subjective Extubated, doing well from a respiratory standpoint, is a bit agitated and confused Objective Data Objective Data Vital Signs: Vital Signs Temp Pulse Resp BP Pulse Ox O2 Del Method O2 Flow Rate 100.3 F H 103 H 13 117/71 97 Nasal Cannula 3 09/28/22 08:00 09/28/22 08:00 09/28/22 08:00 09/28/22 08:00 09/28/22 08:00 09/28/22 08:00 09/28/22 08:00 FiO2 30 09/28/22 02:00 Oxygen Flow Rate (L/min) 3 Oxygen Delivery Method Nasal Cannula Weight: 130 lb 8.218 oz Body Mass Index (BMI) 19.8 Intake & Output: Intake and Output for Last 24 Hours 09/27/22 09/28/22 09/29/22 03:59 03:59 03:59 Intake Total 1795.59 / 1804.59 1883.27 / 1883.27 1021.67 / 1021.67 Output Total 1575 / 1575 6975 / 6975 Balance 220.59 / 229.59 -5091.73 / -5091.73 1021.67 / 1021.67 Lab / Micro Data 09/28/22 03:30 09/28/22 03:30 Labs: Laboratory Results - last 24 hr 09/27/22 11:00: Vancomycin Trough 28.8 H 09/27/22 17:52: Sodium 136, Potassium 3.8, Chloride 98, Carbon Dioxide 34.0 H, Anion Gap 4 L, BUN 30 H, Creatinine 0.96, Estim Creat Clear Calc 54.80, Est GFR (MDRD) Af Amer 96, Est GFR (MDRD) Non-Af 80, BUN/Creatinine Ratio 31.2 H, Glucose 138 H, Calcium 9.3, Total Bilirubin 0.60, AST 19, ALT 26, Alkaline Phosphatase 69, Total Protein 6.9, Albumin 2.7 L, Globulin 4.2, Albumin/Globulin Ratio 0.6 L 09/28/22 03:30: WBC 19.6 H, RBC 3.90 L, Hgb 11.3 L, Hct 35.3 L, MCV 90.5, MCH 29.0, MCHC 32.0, RDW Std Deviation 52.4 H, RDW Coeff of Cory 16.0 H, Plt Count 146 L, MPV 11.1, Immature Gran % (Auto) 0.800, Neut % (Auto) 93.3 H, Lymph % (Auto) 2.9 L, [place] % (Auto) 2.5, Eos % (Auto) 0.4, Baso % (Auto) 0.1, Absolute Neuts (auto) 18.3 H, Absolute Lymphs (auto) 0.57 L, Nucleated RBC % 0, Differential Comment , Sodium 137, Potassium 3.9, Chloride 97 L, Carbon Dioxide 34.0 H, Anion Gap 6, BUN 27 H, Creatinine 0.97, Estim Creat Clear Calc 50.01, Est GFR (MDRD) Af Amer 96, Est GFR (MDRD) Non-Af 79, BUN/Creatinine Ratio 27.8 H, Glucose 145 H, Calcium 9.3 Micro: Microbiology 09/25/22 21:35 Sputum, Induced/Lukens Gram Stain - Final 09/25/22 21:35 Sputum, Induced/Lukens Respiratory Culture - Final Pseudomonas aeruginosa 09/25/22 21:15 Urine, Catheterized Urine Culture - Preliminary Culture exhibits no growth. 09/25/22 21:15 Urine Catheter - [place] Legionella Antigen - Final 09/25/22 21:15 Urine Catheter - [place] Streptococcus pneumoniae Antigen (M - Final ABG Data ABG results: ABG 09/28/22 06:54 Specimen Type ART Sample Site L Radial pH 7.49 H Bicarbonate Actual 35.1 H Total CO2 37 Base Excess 12 H O2 Saturation 95 O2 % 30 ABG pCO2 45.9 H ABG pO2 70 L [place] Test Positive O2 Delivery Device Adult Vent Vent Mode CPAP/PS POC PEEP 5 POC Pressure Suppt 5 Rhythm Strip Rhythm Strip: A-fib Rate: 93 Ectopy: None Physical Exam Narrative General: Alert, Cooperative, No apparent distress HEENT: Atraumatic, PERRLA, EOMI, Normocephalic Oral: Moist Mucosa Neck: Supple, No JVD Lungs: Diminished, Normal air movement, No rhonchi, No wheeze, No rales Cardiovascular: Regular rate, irregular rhythm, Normal S1, Normal S2, No murmurs Abdomen: Soft, Non Tender, Non-Distended, No Hepato-splenomegaly Extremities: Edema, Capillary Refill Less than 3 Seconds Skin: No rashes, No breakdown Musculoskeletal: No Tenderness to Palpation of Joints or Extremities Neurological: Cranial nerves II-XII grossly intact, Motor Exam 5/5 strength throughout, Sensory exam intact to light touch and pain Psych/Mental Status: Confused and periodically agitated Assessment & Plan Assessment/Plan (1) Hypercapnic respiratory failure: (2) Pneumonia: (3) COPD exacerbation: PLAN: Plan 1. Acute on chronic hypoxic and hypercapnic respiratory failure/anemia and thrombocytopenia ? Unclear if he also meets sepsis criteria as there is no obvious signs of infection at this time, and urine is clean and chest x-ray did not definitively demonstrate a consolidation, sputum culture is negative as are the urine cultures, blood cultures, Legionella antigen and Streptococcus pneumonia antigen ? Echo if of 60%, PASP of 36 mmHg and mean aortic valve gradient of 21 mmHg ? Given the uncertainty of an infectious source continue with broad-spectrum empiric antibiotics ? Continue with steroids ? We will continue to monitor his anemia and thrombocytopenia, currently unclear as to the etiology 2. A-fib/CAD/HTN ? Continue with Eliquis ? We will continue metoprolol and digoxin ? We will hold Lasix 3. GERD ? Stable ? Continue with PPI 4. Anxiety/depression ? Stable ? Continue with Abilify DVT: Eliquis Charges/Coding Visit Charges Inpatient E&M: 26495 Subs Hosp L2
--- NOTE | 2022-09-28 09:33 | CASEMGMT ---
Social Work SW participated in ICU rounds this morning. pt has been extubated. Pt not fully alert and oriented as per nursing. SW called son to speak with him regarding discharge planning. SW inquired about rehab for pt at discharge in a long-term facility. Pt's son states pt will not want this. He states will bring pt home, and pt is right next door. Son states checks on pt throughout the day, but that pt was able to get up prior to this, get himself something to eat, and was managing. SW explained that pt may not be able to do this when he leave the hospital, inquired if he can be w/pt rather than just check on him every couple of hours. Pt's son states he can do this. Son asked about a hospital bed. SW explained if pt does go home, we can help with this. SW did explain to son that we cannot set up home health however as pt does not have a physician here yet--son was aware of this already. SW inquired w/son when his father was in a rehab in [place], whether it was hospital based or in a usp. Son does not know, he does think pt would know however. SW explained will check in w/pt to see if he is able to tell SW. SW explained we will see how therapy goes now that pt is off the vent, to see if pt can truly manage at home. Son states understanding. SW did speak w/pt, asked pt if he recalls if he was in a hospital based rehab or usp rehab. RN in room as well. Pt jumped from topic to topic, can be redirected somewhat. Pt did not answer this question, but informed SW he was a . Then he asked SW to help him to get to [place], due to some charges he has against him. Pt then went on to tell SW he is a registered sex offender, the charges were in 2010. SW explained is not able to assist with this, as SW does not have any legal training or experience, advised for his son to help him. Pt informed SW he knew this SW would not help him as SW is a typical [place]. RN then asked pt about where he had been also, explained we are just trying to piece it together. Pt named a couple of hospitals he has been in, but not able to fully explain the timeline over the last couple of months. He did also tell SW and RN that he has been in psychiatric hospitals 4 times, but it did not help. Pt then went on to order his breakfast w/the RN. Plan: home, possible hospital bed. Son stating pt will not be agreeable to SNF. SW to revisit depending on how pt does with therapy. If pt is indeed a sex offender this would limit SNF choice to [facility]. COURTNEY Saul
[2022-09-28] MEDS: ARIPiprazole 5 MG Tablet PO (09:43)
[2022-09-28] MEDS: Cyanocobalamin 500 MCG Tablet 1000 MCG PO (09:44)
[2022-09-28] MEDS: Finasteride 5 MG Tablet PO (09:44)
[2022-09-28] MEDS: Metoprolol Tartrate 50 MG Tablet 150 MG PO ×2 (09:44→21:10)
[2022-09-28] MEDS: APIXABAN 2.5 MG TABLET (WCH) PO ×2 (09:44→21:11)
[2022-09-28] MEDS: 0.9% Saline Lock 10 ML Syringe IV (13:13)
[2022-09-29] VITALS (20 sets, daily range): BP systolic 106–147; BP diastolic 61–95; PULSE 73–95; RESP 11–20; TEMP 36.4–37.3; O2SAT 95–100; BMI 20.2
[2022-09-29 04:49] LABS: Absolute Lymphocyte Count 1.94 X10^3/uL (0.83-4.51); Absolute Neutrophil Count 12.1 X10^3/uL (2.0-7.7); Basophil# 0.02 X10^3/uL; Basophil% 0.1 % (0-1); Eosinophil# 0.01 X10^3/uL; Eosinophils% 0.1 % (0-5); Hematocrit 31.2 % (40-54); Hemoglobin 9.7 g/dL (13.0-16.5); Lymphocyte # 1.94 X10^3/ul (0.83-4.51); Lymphocyte % 12.5 % (19-41); Mean Corp Hgb Conc 31.1 g/dL (32-36); Mean Corpuscular Hgb 28.7 pg (27.0-32.0); Mean Corpuscular Volume 92.3 fL (80-94); Mean Platelet Vol. 11.5 fl (6.2-12.0); Monocyte# 1.24 X10^3/uL; NRBC Flagged by Analyzer 0 % (0-5); Neutrophil # 12.13 X10^3/uL (2.7-7.7); Neutrophil % 78.5 % (47-70); Platelet Count 143 K/mm3 (150-450); RBC Distribution Width CV 16.2 % (11.6-14.6); RBC Distribution Width SD 54.7 fl (35.1-43.9); Red Blood Count 3.38 M/mm3 (4.6-6.2); White Blood Count 15.5 K/mm3 (4.4-11.0)
[2022-09-29 05:02] LABS: Anion Gap 0 (5-15); BUN 57 mg/dL (7-18); BUN/Creat Ratio 41.3 RATIO (10-20); Calcium,Total 8.6 mg/dL (8.5-10.1); Chloride 100 mmol/L (98-107); Creatinine, Serum 1.38 mg/dL (0.70-1.30); EST Glomerular Filtration Rate 53 mL/min (>60); Est Glom Filt Rate - Afr Amer 64 mL/min (>60); Estimated Creatinine Clearance 35.15 ml/min; Glucose 82 mg/dL (74-106); Potassium 4.4 mmol/L (3.5-5.1); Sodium Level 136 mmol/L (136-145)
--- NOTE | 2022-09-29 06:51 | PCM.PN.INT ---
Assessment & Plan Assessment/Plan (1) Acute respiratory failure: (2) COPD exacerbation: PLAN: Plan RECOMMENDATIONS: 1. Continue supplemental oxygen at 3 L/min per baseline requirement. 2. Transition from IV steroids to prednisone 40 mg daily for the next 5 days. 3. Continue antimicrobials to complete 7 days of therapy. 4. Recommend BiPAP utilization with naps and nightly. 5. Continue scheduled bronchodilators. 6. Continue systemic anticoagulation per home regimen. 7. Continue beta-mariluz. 8. Encourage incentive spirometer use and mobilize patient as tolerated. 9. The patient is medically stable for transfer out of the intensive care unit. We will sign off from a critical care perspective. IMPRESSIONS: 1. Acute on chronic respiratory failure with hypercapnia and hypoxemia The patient has an apparent baseline oxygen requirement of 3 L/min along with COPD of unknown severity. The exact etiology for his acute presentation is not entirely clear. While underlying pulmonary infection is a possibility, I cannot discount the possibility of a cardiac contribution, given the patient's history of coronary artery disease. However, echocardiogram was unrevealing. With supportive care, the patient was able to be extubated on September 28. At this time, would recommend that we continue scheduled bronchodilators and steroids. I will transition him from IV steroids to prednisone 40 mg daily for the next 5 days. The patient should complete a 7-day treatment course of antimicrobials. He is currently maintaining appropriate oxygen saturations on his baseline requirement. Recommend encouraging incentive spirometer use and mobilizing patient as tolerated. 2. History of coronary artery disease/paroxysmal atrial fibrillation Continue home beta-mariluz regimen and digoxin. 3. Anemia/thrombocytopenia Unclear chronicity. Continue to monitor blood counts daily. Transfuse if hemoglobin drops below 7 g/dL. This note was generated with [employer] dictation software. It may contain incorrect words, spelling, and punctuation that were not noted in checking the note before signing. Subjective Subjective The patient was seen and examined at the bedside this morning. Events from the last 24 hours have been reviewed. The patient is currently afebrile, hemodynamically stable and maintaining appropriate oxygen saturations on 3 L/min via nasal cannula, which is his baseline requirement. The patient is documented to be overall net -3.3 L for the hospitalization. Objective Data Objective Data The patient's most recent lab work, culture data and imaging studies have all been personally reviewed. Surface echocardiogram demonstrated normal LV size and function with an ejection fraction of 60%. Mild to moderate tricuspid valve insufficiency was noted along with a pulmonary artery systolic pressure of 36 mmHg. Vital Signs: Vital Signs Temp Pulse Resp BP Pulse Ox O2 Del Method O2 Flow Rate 98.1 F 77 11 L 135/88 H 99 Nasal Cannula 3 09/29/22 06:00 09/29/22 06:00 09/29/22 06:00 09/29/22 06:00 09/29/22 06:00 09/29/22 06:00 09/29/22 06:00 FiO2 30 09/28/22 02:00 Oxygen Flow Rate (L/min) 3 Oxygen Delivery Method Nasal Cannula Weight: 133 lb 2.547 oz Body Mass Index (BMI) 20.2 Intake & Output: Intake and Output for Last 24 Hours 09/27/22 09/28/22 09/29/22 23:59 23:59 23:59 Intake Total 1873.47 / 1962.07 2117.47 / 2117.47 50 / 50 Output Total 6575 / 6575 1949 / 1999 450 / 450 Balance -4701.53 / -4612.93 167.47 / 117.47 -400 / -400 Lab / Micro Data Attestation: I reviewed the patient's lab results. 09/29/22 04:35 09/29/22 04:35 Labs: Laboratory Results - last 24 hr 09/28/22 03:30: WBC 19.6 H, RBC 3.90 L, Hgb 11.3 L, Hct 35.3 L, MCV 90.5, MCH 29.0, MCHC 32.0, RDW Std Deviation 52.4 H, RDW Coeff of Cory 16.0 H, Plt Count 146 L, MPV 11.1, Immature Gran % (Auto) 0.800, Neut % (Auto) 93.3 H, Lymph % (Auto) 2.9 L, [place] % (Auto) 2.5, Eos % (Auto) 0.4, Baso % (Auto) 0.1, Absolute Neuts (auto) 18.3 H, Absolute Lymphs (auto) 0.57 L, Nucleated RBC % 0, Differential Comment , Sodium 137, Potassium 3.9, Chloride 97 L, Carbon Dioxide 34.0 H, Anion Gap 6, BUN 27 H, Creatinine 0.97, Estim Creat Clear Calc 50.01, Est GFR (MDRD) Af Amer 96, Est GFR (MDRD) Non-Af 79, BUN/Creatinine Ratio 27.8 H, Glucose 145 H, Calcium 9.3 09/29/22 04:35: WBC 15.5 H, RBC 3.38 L, Hgb 9.7 L, Hct 31.2 L, MCV 92.3, MCH 28.7, MCHC 31.1 L, RDW Std Deviation 54.7 H, RDW Coeff of Cory 16.2 H, Plt Count 143 L, MPV 11.5, Immature Gran % (Auto) 0.800, Neut % (Auto) 78.5 H, Lymph % (Auto) 12.5 L, [place] % (Auto) 8.0, Eos % (Auto) 0.1, Baso % (Auto) 0.1, Absolute Neuts (auto) 12.1 H, Absolute Lymphs (auto) 1.94, Nucleated RBC % 0, Sodium 136, Potassium 4.4, Chloride 100, Carbon Dioxide 36.0 H, Anion Gap 0 L, BUN 57 H, Creatinine 1.38 H, Estim Creat Clear Calc 35.15, Est GFR (MDRD) Af Amer 64, Est GFR (MDRD) Non-Af 53 L, BUN/Creatinine Ratio 41.3 H, Glucose 82, Calcium 8.6 Micro: Microbiology 09/25/22 21:15 Blood Culture (Wb) - Anticubital Left Blood Culture - Preliminary No growth in 48 hours. 09/25/22 21:15 Blood Culture (Wb) - Anticubital Right Blood Culture - Preliminary No growth in 48 hours. 09/25/22 21:15 Urine, Catheterized Urine Culture - Final Culture exhibits no growth. 09/25/22 21:35 Sputum, Induced/Lukens Gram Stain - Final 09/25/22 21:35 Sputum, Induced/Lukens Respiratory Culture - Final Pseudomonas aeruginosa 09/25/22 21:15 Urine Catheter - [place] Legionella Antigen - Final 09/25/22 21:15 Urine Catheter - [place] Streptococcus pneumoniae Antigen (M - Final ABG Data ABG results: ABG 09/28/22 06:54 Specimen Type ART Sample Site L Radial pH 7.49 H Bicarbonate Actual 35.1 H Total CO2 37 Base Excess 12 H O2 Saturation 95 O2 % 30 ABG pCO2 45.9 H ABG pO2 70 L Vicente Test Positive O2 Delivery Device Adult Vent Vent Mode CPAP/PS POC PEEP 5 POC Pressure Suppt 5 Rhythm Strip Rhythm Strip: A-fib Rate: 93 Ectopy: None Physical Exam Const alert and no apparent distress HEENT normocephalic and head/scalp atraumatic Eyes PERRL and EOMs intact bilaterally Neck supple General: trachea midline Chest inspection of chest normal Resp normal respiratory effort Auscultation: diminished lung sounds; Negative for rales, rhonchi or wheezes Cardio S1 normal heart sound and S2 normal heart sound Rhythm: abnormal rhythm GI normal to inspection, nondistended, normoactive bowel sounds Extremity General Extremity: edema bilateral lower extremity; Negative for clubbing Skin no rashes or lesions noted Neuro CN's II-XII intact bilaterally and no focal motor deficits Psych Mood & Affect: flat affect Charges/Coding Visit Charges Inpatient E&M: 27699 Subs Hosp L3
[2022-09-29] MEDS: Ipratropium/Albuterol Sulfate 3 ML AMPUL.NEB INHALATION ×2 (07:12→19:18)
--- NOTE | 2022-09-29 09:09 | PN.HOSP_ITS ---
Subjective Subjective Does endorse having hallucinations. No issues overnight Objective Data Objective Data Vital Signs: Vital Signs Temp Pulse Resp BP Pulse Ox O2 Del Method O2 Flow Rate 98.3 F 82 14 138/91 H 100 Nasal Cannula 3 09/29/22 08:00 09/29/22 08:00 09/29/22 08:00 09/29/22 08:00 09/29/22 08:00 09/29/22 08:30 09/29/22 08:30 FiO2 30 09/28/22 02:00 Oxygen Flow Rate (L/min) 3 Oxygen Delivery Method Nasal Cannula Weight: 133 lb 2.547 oz Body Mass Index (BMI) 20.2 Intake & Output: Intake and Output for Last 24 Hours 09/28/22 09/29/22 09/30/22 03:59 03:59 03:59 Intake Total 1883.27 / 1883.27 1971.67 / 1971.67 0 / 0 Output Total 6975 / 6975 1550 / 1600 50 / 50 Balance -5091.73 / -5091.73 421.67 / 371.67 -50 / -50 Lab / Micro Data 09/29/22 04:35 09/29/22 04:35 Labs: Laboratory Results - last 24 hr 09/29/22 04:35: WBC 15.5 H, RBC 3.38 L, Hgb 9.7 L, Hct 31.2 L, MCV 92.3, MCH 28.7, MCHC 31.1 L, RDW Std Deviation 54.7 H, RDW Coeff of Cory 16.2 H, Plt Count 143 L, MPV 11.5, Immature Gran % (Auto) 0.800, Neut % (Auto) 78.5 H, Lymph % (Auto) 12.5 L, [place] % (Auto) 8.0, Eos % (Auto) 0.1, Baso % (Auto) 0.1, Absolute Neuts (auto) 12.1 H, Absolute Lymphs (auto) 1.94, Nucleated RBC % 0, Sodium 136, Potassium 4.4, Chloride 100, Carbon Dioxide 36.0 H, Anion Gap 0 L, BUN 57 H, Creatinine 1.38 H, Estim Creat Clear Calc 35.15, Est GFR (MDRD) Af Amer 64, Est GFR (MDRD) Non-Af 53 L, BUN/Creatinine Ratio 41.3 H, Glucose 82, Calcium 8.6 Micro: Microbiology 09/25/22 21:15 Blood Culture (Wb) - Anticubital Left Blood Culture - Preliminary No growth in 48 hours. 09/25/22 21:15 Blood Culture (Wb) - Anticubital Right Blood Culture - Preliminary No growth in 48 hours. 09/25/22 21:15 Urine, Catheterized Urine Culture - Final Culture exhibits no growth. 09/25/22 21:35 Sputum, Induced/Lukens Gram Stain - Final 09/25/22 21:35 Sputum, Induced/Lukens Respiratory Culture - Final Pseudomonas aeruginosa 09/25/22 21:15 Urine Catheter - [place] Legionella Antigen - Final 09/25/22 21:15 Urine Catheter - [place] Streptococcus pneumoniae Antigen (M - Final Rhythm Strip Rhythm Strip: A-fib Rate: 93 Ectopy: None Physical Exam Narrative General: Alert, Cooperative, No apparent distress HEENT: Atraumatic, PERRLA, EOMI, Normocephalic Oral: Moist Mucosa Neck: Supple, No JVD Lungs: Diminished, Normal air movement, No rhonchi, No wheeze, No rales Cardiovascular: Regular rate, irregular rhythm, Normal S1, Normal S2, No murmurs Abdomen: Soft, Non Tender, Non-Distended, No Hepato-splenomegaly Extremities: Edema, Capillary Refill Less than 3 Seconds Skin: No rashes, No breakdown Musculoskeletal: No Tenderness to Palpation of Joints or Extremities Neurological: Cranial nerves II-XII grossly intact, Motor Exam 5/5 strength throughout, Sensory exam intact to light touch and pain Psych/Mental Status: Confused and periodically agitated, visual hallucinations Assessment & Plan Assessment/Plan (1) Hypercapnic respiratory failure: (2) Pneumonia: (3) COPD exacerbation: PLAN: Plan 1. Acute on chronic hypoxic and hypercapnic respiratory failure/anemia and thrombocytopenia/metabolic encephalopathy with hallucinations ? Unclear if he also meets sepsis criteria as there is no obvious signs of infection at this time, and urine is clean and chest x-ray did not definitively demonstrate a consolidation, sputum culture is negative as are the urine cultur es, blood cultures, Legionella antigen and Streptococcus pneumonia antigen ? Echo if of 60%, PASP of 36 mmHg and mean aortic valve gradient of 21 mmHg ? Given the uncertainty of an infectious source continue with broad-spectrum empiric antibiotics ? Continue with steroids ? We will continue to monitor his anemia and thrombocytopenia, currently unclear as to the etiology ? We will obtain an ammonia and a CMP in the morning 2. A-fib/CAD/HTN ? Continue with Eliquis ? We will continue metoprolol and digoxin ? We will hold Lasix 3. GERD ? Stable ? Continue with PPI 4. Anxiety/depression ? Stable ? Continue with Abilify DVT: Eliquheriberto Charges/Coding Visit Charges Inpatient E&M: 47283 Subs Hosp L2
[2022-09-29] MEDS: Digoxin 125 MCG Tablet PO (09:42)
[2022-09-29] MEDS: predniSONE 20 MG Tablet 40 MG PO (09:42)
[2022-09-29] MEDS: 0.9% Saline Lock 10 ML Syringe IV (09:42)
[2022-09-29] MEDS: Metoprolol Tartrate 50 MG Tablet 150 MG PO ×2 (09:42→20:55)
[2022-09-29] MEDS: ARIPiprazole 5 MG Tablet PO (09:43)
[2022-09-29] MEDS: APIXABAN 2.5 MG TABLET (WCH) PO ×2 (09:43→20:55)
[2022-09-29] MEDS: Cyanocobalamin 500 MCG Tablet 1000 MCG PO (09:44)
[2022-09-29] MEDS: Finasteride 5 MG Tablet PO (09:44)
[2022-09-29 10:25] LABS: Ammonia < 10.0 umol/L (11-32)
[2022-09-30] VITALS (13 sets, daily range): BP systolic 101–136; BP diastolic 66–78; PULSE 81–91; RESP 16–20; TEMP 36.1–36.8; O2SAT 94–99; BMI 20.2
[2022-09-30 06:41] LABS: Absolute Lymphocyte Count 2.03 X10^3/uL (0.83-4.51); Absolute Neutrophil Count 7.9 X10^3/uL (2.0-7.7); Basophil# 0.01 X10^3/uL; Basophil% 0.1 % (0-1); Eosinophil# 0.03 X10^3/uL; Eosinophils% 0.3 % (0-5); Hematocrit 35.1 % (40-54); Hemoglobin 10.9 g/dL (13.0-16.5); Lymphocyte # 2.03 X10^3/ul (0.83-4.51); Lymphocyte % 18.7 % (19-41); Mean Corp Hgb Conc 31.1 g/dL (32-36); Mean Corpuscular Hgb 28.7 pg (27.0-32.0); Mean Corpuscular Volume 92.4 fL (80-94); Mean Platelet Vol. 10.6 fl (6.2-12.0); Monocyte# 0.87 X10^3/uL; NRBC Flagged by Analyzer 0 % (0-5); Neutrophil # 7.86 X10^3/uL (2.7-7.7); Neutrophil % 72.6 % (47-70); Platelet Count 158 K/mm3 (150-450); RBC Distribution Width CV 15.8 % (11.6-14.6); RBC Distribution Width SD 53.7 fl (35.1-43.9); White Blood Count 10.8 K/mm3 (4.4-11.0)
[2022-09-30 07:19] LABS: ALB/GLOB Ratio 0.7 RATIO (0.9-2.4); AST(SGOT) 13 U/L (15-37); Alanine Aminotransfer ALT/SGPT 21 U/L (16-61); Albumin, Serum 2.7 g/dL (3.2-5.0); Alkaline Phosphatase 54 U/L (45-117); Anion Gap 2 (5-15); BUN 49 mg/dL (7-18); BUN/Creat Ratio 37.1 RATIO (10-20); Calcium,Total 8.9 mg/dL (8.5-10.1); Chloride 101 mmol/L (98-107); Creatinine, Serum 1.32 mg/dL (0.70-1.30); EST Glomerular Filtration Rate 55 mL/min (>60); Est Glom Filt Rate - Afr Amer 67 mL/min (>60); Estimated Creatinine Clearance 37.74 ml/min; Globulin 4.1 g/dL (2.2-4.2); Glucose 88 mg/dL (74-106); Magnesium 2.2 mg/dL (1.6-2.6); Phosphorus 2.9 mg/dL (2.5-4.9); Potassium 4.6 mmol/L (3.5-5.1); Protein, Total 6.8 g/dL (6.4-8.2); Sodium Level 138 mmol/L (136-145)
[2022-09-30] MEDS: Ipratropium/Albuterol Sulfate 3 ML AMPUL.NEB INHALATION ×5 (07:26→23:09)
[2022-09-30] MEDS: Finasteride 5 MG Tablet PO (09:45)
[2022-09-30] MEDS: Metoprolol Tartrate 50 MG Tablet 150 MG PO ×2 (09:45→20:33)
[2022-09-30] MEDS: Pantoprazole Sodium 40 MG Tablet PO (09:45)
[2022-09-30] MEDS: predniSONE 20 MG Tablet 40 MG PO (09:45)
[2022-09-30] MEDS: APIXABAN 2.5 MG TABLET (WCH) PO ×2 (09:45→20:33)
[2022-09-30] MEDS: Cyanocobalamin 500 MCG Tablet 1000 MCG PO (09:50)
[2022-09-30] MEDS: ARIPiprazole 5 MG Tablet PO (10:55)
--- NOTE | 2022-09-30 11:49 | PN.HOSP_ITS ---
Subjective Subjective Doing well, no issues overnight. Still some shortness of breath with minimal activity Objective Data Objective Data Vital Signs: Vital Signs Temp Pulse Resp BP Pulse Ox O2 Del Method O2 Flow Rate 97.4 F L 87 20 H 101/66 98 Nasal Cannula 3 09/30/22 09:41 09/30/22 10:51 09/30/22 10:51 09/30/22 09:45 09/30/22 09:41 09/30/22 09:41 09/30/22 09:41 FiO2 30 09/28/22 02:00 Oxygen Flow Rate (L/min) 3 Oxygen Delivery Method Nasal Cannula Weight: 134 lb 0.657 oz Body Mass Index (BMI) 20.2 Intake & Output: Intake and Output for Last 24 Hours 09/29/22 09/30/22 10/01/22 03:59 03:59 03:59 Intake Total 1971.67 / 1971.67 780 / 780 50 / 50 Output Total 1550 / 1600 400 / 400 Balance 421.67 / 371.67 380 / 380 50 / 50 Lab / Micro Data 09/30/22 06:08 09/30/22 06:08 Labs: Laboratory Results - last 24 hr 09/30/22 06:08: WBC 10.8, RBC 3.80 L, Hgb 10.9 L, Hct 35.1 L, MCV 92.4, MCH 28.7, MCHC 31.1 L, RDW Std Deviation 53.7 H, RDW Coeff of Cory 15.8 H, Plt Count 158, MPV 10.6, Immature Gran % (Auto) 0.300, Neut % (Auto) 72.6 H, Lymph % (Auto) 18.7 L, [place] % (Auto) 8.0, Eos % (Auto) 0.3, Baso % (Auto) 0.1, Absolute Neuts (auto) 7.9 H, Absolute Lymphs (auto) 2.03, Nucleated RBC % 0, Sodium 138, Potassium 4.6, Chloride 101, Carbon Dioxide 35.0 H, Anion Gap 2 L, BUN 49 H, Creatinine 1.32 H, Estim Creat Clear Calc 37.74, Est GFR (MDRD) Af Amer 67, Est GFR (MDRD) Non-Af 55 L, BUN/Creatinine Ratio 37.1 H, Glucose 88, Calcium 8.9, Phosphorus 2.9, Magnesium 2.2, Total Bilirubin 0.50, AST 13 L, ALT 21, Alkaline Phosphatase 54, Total Protein 6.8, Albumin 2.7 L, Globulin 4.1, Albumin/Globulin Ratio 0.7 L Micro: Microbiology 09/25/22 21:15 Blood Culture (Wb) - Anticubital Left Blood Culture - Preliminary No growth in 48 hours. 09/25/22 21:15 Blood Culture (Wb) - Anticubital Right Blood Culture - Preliminary No growth in 48 hours. 09/25/22 21:15 Urine, Catheterized Urine Culture - Final Culture exhibits no growth. 09/25/22 21:35 Sputum, Induced/Lukens Gram Stain - Final 09/25/22 21:35 Sputum, Induced/Lukens Respiratory Culture - Final Pseudomonas aeruginosa 09/25/22 21:15 Urine Catheter - [place] Legionella Antigen - Final 09/25/22 21:15 Urine Catheter - [place] Streptococcus pneumoniae Antigen (M - Final Rhythm Strip Rhythm Strip: A-fib Rate: 93 Ectopy: None Physical Exam Narrative General: Alert, Cooperative, No apparent distress HEENT: Atraumatic, PERRLA, EOMI, Normocephalic Oral: Moist Mucosa Neck: Supple, No JVD Lungs: Diminished, Normal air movement, No rhonchi, No wheeze, No rales Cardiovascular: Regular rate, irregular rhythm, Normal S1, Normal S2, No murmurs Abdomen: Soft, Non Tender, Non-Distended, No Hepato-splenomegaly Extremities: Edema, Capillary Refill Less than 3 Seconds Skin: No rashes, No breakdown Musculoskeletal: No Tenderness to Palpation of Joints or Extremities Neurological: Cranial nerves II-XII grossly intact, Motor Exam 5/5 strength throughout, Sensory exam intact to light touch and pain Psych/Mental Status: Confused and periodically agitated, visual hallucinations Assessment & Plan Assessment/Plan (1) Hypercapnic respiratory failure: (2) Pneumonia: (3) COPD exacerbation: PLAN: Plan 1. Acute on chronic hypoxic and hypercapnic respiratory failure/anemia and thrombocytopenia/metabolic encephalopathy with hallucinations ? Unclear if he also meets sepsis criteria as there is no obvious signs of infection at this time, and urine is clean and chest x-ray did not definitively demonstrate a consolidation, sputum culture is negative as are the urine cultures, blood cultures, Legionella antigen and Streptococcus pneumonia antigen ? Echo if of 60%, PASP of 36 mmHg and mean aortic valve gradient of 21 mmHg ? Given the uncertainty of an infectious source continue with broad-spectrum empiric antibiotics ? Continue with steroids ? We will continue to monitor his anemia and thrombocytopenia, currently unclear as to the etiology ? Ammonia and liver function tests are normal, his encephalopathy could be related to his mental health disorders ? PT/OT for evaluation and possible placement given his decreased mobility from his oxygen requirements 2. A-fib/CAD/HTN ? Continue with Eliquis ? We will continue metoprolol and digoxin ? We will hold Lasix 3. GERD ? Stable ? Continue with PPI 4. Anxiety/depression ? Stable ? Continue with Abilify DVT: Eliquis Charges/Coding Visit Charges Inpatient E&M: 22740 Subs Hosp L2
--- NOTE | 2022-09-30 14:22 | CASEMGMT ---
JESSI BREWER reviewed progress with therapy, no therapy recommended at this time. Niece at bedside. EJSSI BREWER reviewed progress with therapy with patient and niece. Patient states he has walker at home and oxygen. JESSI BREWER called [facility] to schedule follow[facility]up appt and [facility] person [facility] and [facility] with DD214 form and ID. JESSI BREWER called and spoke to son. Per son, he is not sure if he has walker at home. CM will provide script in discharge folder for family to take to [facility] to fill, son voiced understanding. JESSI BREWER updated son on process for getting established with [facility]. CM placed Physician directory in folder for son as well. Son reminded to bring portable oxygen from home and then once established [facility] to have oxygen transferred through [facility], son voiced understanding. Son had no further questions or concerns at this time.
[2022-10-01] VITALS (7 sets, daily range): BP systolic 110–137; BP diastolic 67–80; PULSE 62–96; RESP 16–20; TEMP 35.9–36.7; O2SAT 96–100
[2022-10-01] MEDS: Ipratropium/Albuterol Sulfate 3 ML AMPUL.NEB INHALATION ×3 (03:17→10:47)
[2022-10-01 06:29] LABS: Absolute Lymphocyte Count 1.89 X10^3/uL (0.83-4.51); Absolute Neutrophil Count 6.5 X10^3/uL (2.0-7.7); Basophil# 0.01 X10^3/uL; Basophil% 0.1 % (0-1); Eosinophil# 0.02 X10^3/uL; Eosinophils% 0.2 % (0-5); Hematocrit 33.9 % (40-54); Hemoglobin 10.4 g/dL (13.0-16.5); Lymphocyte # 1.89 X10^3/ul (0.83-4.51); Lymphocyte % 20.1 % (19-41); Mean Corp Hgb Conc 30.7 g/dL (32-36); Mean Corpuscular Hgb 28.4 pg (27.0-32.0); Mean Corpuscular Volume 92.6 fL (80-94); Mean Platelet Vol. 10.8 fl (6.2-12.0); Monocyte% 9.6 % (0-10); NRBC Flagged by Analyzer 0 % (0-5); Neutrophil # 6.53 X10^3/uL (2.7-7.7); Neutrophil % 69.7 % (47-70); Platelet Count 165 K/mm3 (150-450); RBC Distribution Width CV 15.7 % (11.6-14.6); RBC Distribution Width SD 53.8 fl (35.1-43.9); Red Blood Count 3.66 M/mm3 (4.6-6.2); White Blood Count 9.4 K/mm3 (4.4-11.0)
[2022-10-01 07:10] LABS: Anion Gap 0 (5-15); BUN 51 mg/dL (7-18); BUN/Creat Ratio 36.4 RATIO (10-20); Calcium,Total 8.8 mg/dL (8.5-10.1); Chloride 103 mmol/L (98-107); EST Glomerular Filtration Rate 52 mL/min (>60); Est Glom Filt Rate - Afr Amer 63 mL/min (>60); Estimated Creatinine Clearance 35.18 ml/min; Glucose 81 mg/dL (74-106); Potassium 4.2 mmol/L (3.5-5.1); Sodium Level 139 mmol/L (136-145)
[2022-10-01] MEDS: Finasteride 5 MG Tablet PO (10:04)
[2022-10-01] MEDS: Cyanocobalamin 500 MCG Tablet 1000 MCG PO (10:04)
[2022-10-01] MEDS: Metoprolol Tartrate 50 MG Tablet 150 MG PO (10:04)
[2022-10-01] MEDS: Pantoprazole Sodium 40 MG Tablet PO (10:04)
[2022-10-01] MEDS: Digoxin 125 MCG Tablet PO (10:04)
[2022-10-01] MEDS: ARIPiprazole 5 MG Tablet PO (10:04)
[2022-10-01] MEDS: APIXABAN 2.5 MG TABLET (WCH) PO (10:04)
--- NOTE | 2022-10-01 11:19 | DCINST_ITS ---
Discharge Instructions Diet Discharge Diet: No restrictions Activity Discharge Activity: Use Walker Follow Up Care Test Results: Test results from this visit will be discussed in further detail at your follow- up appointment, if applicable. Discharge Plan Admission Admit Date/Time: 09/25/22 22:12 Primary Reason for Your Visit: Unresponsive Attending Provider: Nikole Kline Primary Care Provider: Care Physician,No Primary Consulting Providers: Baldev Perez; Rickey Silver; Aly Levi Instructions Patient Instructions: Traveling with Oxygen Additional Instructions / Restrictions: DISCHARGE INSTRUCTIONS PLEASE READ *Please take this with you to your next doctors appointment* -You will need to take 3 more doses of ciprofloxacin 500 mg with first dose the night of 10/01 and 500mg both morning and night of 10/02. -You have refused any further prednisone and do not wish to resume this due to it causing hallucinations so prescription was not sent to her pharmacy -Continue as needed albuterol and continue your Combivent that you have at home, this inhaler was seen in your back with medications it is important that you continue that as prescribed -Would recommend lab work (BMP) to check your kidney function in 3 to 5 days through your primary care physician's office or through the [facility]. Please call their office upon discharge to obtain order for lab work. -Please continue using home O2, you will also be given a script for a walker -Patient to follow-up at local [place] office of choice. Patient will need to register in person and bring DD214 form and ID. [facility] Directory placed in folder. -Weigh yourself every day. A sudden weight gain can mean you are retaining fluid. Weigh yourself at the same time of day and in the same kind of clothes. Ideally, weigh yourself first thing in the morning after you empty your bladder, but before you eat breakfast. -Please call your physician if your weight goes up by more than 2 pounds in 1 day or 5 pounds in 1 week. This can be a sign that you are retaining more fluid than you should be. -Please call your primary care provider's office upon discharge to schedule a hospital follow up within 1 week. -For any concerning signs or symptoms please call 911 or proceed to the nearest emergency department Discharge Orders/Prescriptions Prescriptions: New ciprofloxacin HCl [Cipro] 500 mg tablet 500 mg PO Q12H 1 Days Qty: 3 0RF Continued metoprolol succinate 100 mg Tablet Extended Release 24 Hr 100 mg PO DAILY tamsulosin 0.4 mg Capsule 0.4 mg PO DAILY pantoprazole [Protonix] 40 mg Tablet,Delayed Release (Dr/Ec) 40 mg PO DAILY digoxin 125 mcg (0.125 mg) Tablet 125 mcg PO QODAY furosemide 20 mg Tablet 20 mg PO DAILY PRN (Reason: Dyspnea) albuterol sulfate 90 mcg/actuation Hfa Aerosol Inhaler 1 puff INHALATION Q6H finasteride 5 mg Tablet 5 mg PO DAILY aripiprazole 5 mg Tablet 5 mg PO DAILY Rx Instructions: take 1 tab by mouth once a day for 14 days ( filled on09/20/22) apixaban 2.5 mg 2.5 mg PO/SL BID cyanocobalamin (vitamin B-12) 1,000 mg 1 cap PO/SL DAILY magnesium oxide 420 mg 1 tab PO/SL BID metoprolol tartrate 75 mg 150 mg PO/SL BID Rx Instructions: take bid for 14 days (filled on 09/20/22) Referrals / Follow Up: Care Physician,No Primary [Primary Care Provider] - Within 1 Week (Patient to follow-up at local [place] office of choice. Patient will need to register in person and bring DD214 form and ID. [facility] Directory placed in folder.) Disposition Disposition (needs filled in before D/C Order can be placed): Home, Self Care
--- NOTE | 2022-10-01 11:25 | PCM.DC.SUM ---
Providers Date of Admission: 09/25/22 Date of Discharge: 10/01/22 Primary Care Physician: Pricila Primary Care Phys Consultations 09/25/22 23:50 Consult: Research Librarian / Pulmonary Medicine Routine Consulting Provider: Rickey Silver Reason for Consult: Acute hypercapnic respiratory failure EMERGENT Consult: No MD Notified: Yes Date Notified: 09/25/22 Time Notified: 22:23 Method of Notification: Verbal Reason For Visit: ACUTE HYPERCAPNIC RESPIRATORY FAILURE, PNEUMONIA Diagnosis Discharge Diagnosis (1) Hypercapnic respiratory failure: Status: Acute Code(s): J96.92 - Respiratory failure, unspecified with hypercapnia (2) Pneumonia: Status: Acute Code(s): J18.9 - Pneumonia, unspecified organism Qualifiers: Pneumonia type: due to Pseudomonas (3) COPD exacerbation: Status: Chronic Code(s): J44.1 - Chronic obstructive pulmonary disease with (acute) exacerbation Plan #Acute on chronic hypoxic and hypercapnic respiratory failure 2/2 COPD exacerbation #Pseudomonas pneumonia #afib #CAD #HTN #GERD #Anx/depression #drug induced psychosis w/ hallucinations- resolved #CKD unclear subtype Medications at Discharge Home Medications albuterol sulfate 90 mcg/actuation aerosol inhaler 1 puff inhalation Q6H Breathing 09/26/22 apixaban 2.5 mg PO/SL BID blood thinner 09/26/22 aripiprazole 5 mg tablet 5 mg PO DAILY mental health 09/26/22 cyanocobalamin (vitamin B-12) 1 cap PO/SL DAILY vitamin 09/26/22 digoxin 125 mcg (0.125 mg) tablet 125 mcg PO QODAY heart rate 09/26/22 finasteride 5 mg tablet 5 mg PO DAILY prosate 09/26/22 furosemide 20 mg tablet 20 mg PO DAILY PRN Dyspnea 09/26/22 magnesium oxide 1 tab PO/SL BID magnesium replacement 09/26/22 metoprolol succinate 100 mg tablet,extended release 24 hr 100 mg PO DAILY heart rate 09/26/22 metoprolol tartrate 150 mg PO/SL BID heart 09/26/22 pantoprazole 40 mg tablet,delayed release (Protonix) 40 mg PO DAILY gerd 09/26/22 tamsulosin 0.4 mg capsule 0.4 mg PO DAILY prostate 09/26/22 ciprofloxacin HCl 500 mg tablet (Cipro) 500 mg PO Q12H 1 day #3 tabs 10/01/22 Hospital Course Procedures - (Intubation) Summary of Care Provided Minutes Spent on Discharge: 37 Hospital Course: MOISÉS HILL, is a 82 M with a significant history of COPD on ?3 L home O2; atrial fibrillation and tobacco abuse who presented 09/25/2022 to the emergency department with unresponsiveness. He was found unresponsive in his recliner and was brought to the ED. ABG with pH of 7.16 and PCO2 of 128 and patient was intubated in the emergency department and admitted to the ICU. He was ultimately extubated and continued to improve and was found to have Pseudomonas pneumonia and had remained on Zosyn with recommended treatment course of 7 days of antibiotics. Research Librarian started him on prednisone however after 2 doses patient adamantly refused another dose/further doses as he reported prednisone makes him hallucinate. Did feel breathing was much better and was on 2 L nasal cannula with reported baseline requirement of 3 L/min. Home med list did not show maintenance inhaler however patient brought medications and was in fact taking Combivent on top of as needed albuterol and was amenable to resuming that. Echo obtained during admission of 60%, PASP of 36 mmHg and mean aortic valve gradient of 21 mmHg. Patient overall improved and worked with physical therapy, ultimate plan was to go home with son and all parties agreeable. On day of discharge patient does report he is feeling better than when he initially presented as anxious to go home, awake and alert. Did have some wheezes and was receiving routine breathing treatment at time of exam but had no increased work of breathing or respiratory distress. Did have slight bump in creatinine but on 09/29 creatinine is 1.38 with yesterday 1.32 and today 1.40. No previous baseline prior to admission but seems to run average roughly 1.1, given no significant worsening over the past 3 days and patient clinically doing much better feel this can be followed with repeat BMP on outpatient basis and monitoring. Discharge instructions as followed: DISCHARGE INSTRUCTIONS PLEASE READ *Please take this with you to your next doctors appointment* -You will need to take 3 more doses of ciprofloxacin 500 mg with first dose the night of 10/01 and 500mg both morning and night of 10/02. -You have refused any further prednisone and do not wish to resume this due to it causing hallucinations so prescription was not sent to her pharmacy -Continue as needed albuterol and continue your Combivent that you have at home, this inhaler was seen in your back with medications it is important that you continue that as prescribed -Would recommend lab work (BMP) to check your kidney function in 3 to 5 days through your primary care physician's office or through the [place]. Please call their office upon discharge to obtain order for lab work. -Please continue using home O2, you will also be given a script for a walker -Patient to follow-up at local [place] office of choice. Patient will need to register in person and bring DD214 form and ID. Physician Directory placed in folder. -Weigh yourself every day. A sudden weight gain can mean you are retaining fluid. Weigh yourself at the same time of day and in the same kind of clothes. Ideally, weigh yourself first thing in the morning after you empty your bladder, but before you eat breakfast. -Please call your physician if your weight goes up by more than 2 pounds in 1 day or 5 pounds in 1 week. This can be a sign that you are retaining more fluid than you should be. -Please call your primary care provider's office upon discharge to schedule a hospital follow up within 1 week. -For any concerning signs or symptoms please call 911 or proceed to the nearest emergency department Physical Exam Narrative General: Alert, no apparent distress HEENT: Atraumatic, normocephalic Eyes: Anicteric, normal conjunctiva, extraocular movements grossly intact Neck: Supple Respiratory: Scattered wheezes, normal respiratory effort Cardiovascular: Regular rate GI: Soft, nontender, nondistended Extremities: No edema Musculoskeletal: Moving all extremities Neuro: No overt focal neurological deficits Skin: No rashes appreciated Psych: Irritable, overall ultimately cooperative Weight / BMI Weight Weight: 60.1 kg Body Mass Index (BMI) 20.0 ABG / Lab / Microbiology Data 10/01/22 05:41 10/01/22 05:41 Laboratory: Laboratory Results - last 24 hr 10/01/22 05:41: WBC 9.4, RBC 3.66 L, Hgb 10.4 L, Hct 33.9 L, MCV 92.6, MCH 28.4, MCHC 30.7 L, RDW Std Deviation 53.8 H, RDW Coeff of Cory 15.7 H, Plt Count 165, MPV 10.8, Immature Gran % (Auto) 0.300, Neut % (Auto) 69.7, Lymph % (Auto) 20.1, Grand % (Auto) 9.6, Eos % (Auto) 0.2, Baso % (Auto) 0.1, Absolute Neuts (auto) 6.5, Absolute Lymphs (auto) 1.89, Nucleated RBC % 0, Sodium 139, Potassium 4.2, Chloride 103, Carbon Dioxide 36.0 H, Anion Gap 0 L, BUN 51 H, Creatinine 1.40 H, Estim Creat Clear Calc 35.18, Est GFR (MDRD) Af Amer 63, Est GFR (MDRD) Non-Af 52 L, BUN/Creatinine Ratio 36.4 H, Glucose 81, Calcium 8.8 Microbiology: Microbiology 09/25/22 21:15 Blood Culture (Wb) - Anticubital Left Blood Culture - Final No growth in 5 days. 09/25/22 21:15 Blood Culture (Wb) - Anticubital Right Blood Culture - Final No growth in 5 days. 09/25/22 21:15 Urine, Catheterized Urine Culture - Final Culture exhibits no growth. 09/25/22 21:35 Sputum, Induced/[place] Gram Stain - Final 09/25/22 21:35 Sputum, Induced/[place] Respiratory Culture - Final Pseudomonas aeruginosa 09/25/22 21:15 Urine Catheter - [place] Legionella Antigen - Final 09/25/22 21:15 Urine Catheter - [place] Streptococcus pneumoniae Antigen (M - Final D/C Instructions Discharge Diet: No restrictions Meaningful Use Info Meaningful Use Diagnoses (Choose all that apply): None applicable Discharge Plan Admission Admit Date/Time: 09/25/22 22:12 Primary Reason for Your Visit: Unresponsive Attending Provider: Nikole Kline Primary Care Provider: Care Physician,No Primary Consulting Providers: Baldev Perez; Rickey Silver; Aly Levi Instructions Patient Instructions: Traveling with Oxygen Additional Instructions / Restrictions: DISCHARGE INSTRUCTIONS PLEASE READ *Please take this with you to your next doctors appointment* -You will need to take 3 more doses of ciprofloxacin 500 mg with first dose the night of 10/01 and 500mg both morning and night of 10/02. -You have refused any further prednisone and do not wish to resume this due to it causing hallucinations so prescription was not sent to her pharmacy -Continue as needed albuterol and continue your Combivent that you have at home, this inhaler was seen in your back with medications it is important that you continue that as prescribed -Would recommend lab work (BMP) to check your kidney function in 3 to 5 days through your primary care physician's office [facility] Please call their office upon discharge to obtain order for lab work. -Please continue using home O2, you will also be given a script for a walker -Patient to follow-up at local [place] office of choice. Patient will need to register in person and bring DD214 form and ID. [employer] Directory placed in folder. -Weigh yourself every day. A sudden weight gain can mean you are retaining fluid. Weigh yourself at the same time of day and in the same kind of clothes. Ideally, weigh yourself first thing in the morning after you empty your bladder, but before you eat breakfast. -Please call your physician if your weight goes up by more than 2 pounds in 1 day or 5 pounds in 1 week. This can be a sign that you are retaining more fluid than you should be. -Please call your primary care provider's office upon discharge to schedule a hospital follow up within 1 week. -For any concerning signs or symptoms please call 911 or proceed to the nearest emergency department Discharge Orders/Prescriptions Prescriptions: New ciprofloxacin HCl [Cipro] 500 mg tablet 500 mg PO Q12H 1 Days Qty: 3 0RF Continued metoprolol succinate 100 mg Tablet Extended Release 24 Hr 100 mg PO DAILY tamsulosin 0.4 mg Capsule 0.4 mg PO DAILY pantoprazole [Protonix] 40 mg Tablet,Delayed Release (Dr/Ec) 40 mg PO DAILY digoxin 125 mcg (0.125 mg) Tablet 125 mcg PO QODAY furosemide 20 mg Tablet 20 mg PO DAILY PRN (Reason: Dyspnea) albuterol sulfate 90 mcg/actuation Hfa Aerosol Inhaler 1 puff INHALATION Q6H finasteride 5 mg Tablet 5 mg PO DAILY aripiprazole 5 mg Tablet 5 mg PO DAILY Rx Instructions: take 1 tab by mouth once a day for 14 days ( filled on09/20/22) apixaban 2.5 mg 2.5 mg PO/SL BID cyanocobalamin (vitamin B-12) 1,000 mg 1 cap PO/SL DAILY magnesium oxide 420 mg 1 tab PO/SL BID metoprolol tartrate 75 mg 150 mg PO/SL BID Rx Instructions: take bid for 14 days (filled on 09/20/22) Referrals / Follow Up: Care Physician,No Primary [Primary Care Provider] - Within 1 Week (Patient to follow-up at local [place] office of choice. Patient will need to register in person and bring DD214 form and ID. [place] Directory placed in folder.) Disposition Disposition (needs filled in before D/C Order can be placed): Home, Self Care Charges/Coding Visit Charges Inpatient E&M: 86751 Disch Hosp >30min
[2022-10-01 11:41] LABS: Bedside Glucose 99 mg/dL (74-106)
== END 2022-10-01 14:18 | disposition home or self-care (01) | DRG 207 ==
LOC: ED 21:49 → ICU 23:24 → PCU 09-29 11:11
PROVIDERS: Family Medicine; Internal Medicine Critical Care Medicine; Admitting Provider Hospitalist; Emergency Provider Emergency Medicine; Visit Provider Internal Medicine
DX: J44.1 Chronic obstructive pulmonary disease with (acute) exacerbation (principal); J15.1 Pneumonia due to Pseudomonas; J96.21 Acute and chronic respiratory failure with hypoxia; J96.22 Acute and chronic respiratory failure with hypercapnia; G93.40 Encephalopathy, unspecified; F19.951 Other psychoactive substance use, unspecified with psychoactive substance-induced psychotic disorder with hallucinations; D69.6 Thrombocytopenia, unspecified; Z99.81 Dependence on supplemental oxygen; I48.91 Unspecified atrial fibrillation; I25.10 Atherosclerotic heart disease of native coronary artery without angina pectoris; F17.210 Nicotine dependence, cigarettes, uncomplicated; K21.9 Gastro-esophageal reflux disease without esophagitis; D64.9 Anemia, unspecified; I12.9 Hypertensive chronic kidney disease with stage 1 through stage 4 chronic kidney disease, or unspecified chronic kidney disease; F41.9 Anxiety disorder, unspecified; F32.9 Major depressive disorder, single episode, unspecified; N18.9 Chronic kidney disease, unspecified; Z83.71 Family history of colonic polyps; Z79.01 Long term (current) use of anticoagulants; Z79.2 Long term (current) use of antibiotics; B96.5 Pseudomonas (aeruginosa) (mallei) (pseudomallei) as the cause of diseases classified elsewhere
CPT/HCPCS: 31500; 31720; 36415; 36600; 51702; 70450; 71045; 80048; 80053; 80162; 80202; 81001; 82140; 82550; 82803; 82962; 83605; 83735; 84100; 84478; 84484; 85025; 85610; 85730; 87040; 87070; 87077; 87086; 87184; 87186; 87205; 87449; 92610; 93005; 93306; 94002; 94003; 94640; 94660; 94668; 97110; 97162; 97166; 97530; 97535; 97802; 99252; 99285; 99406; J7040; J7050; A4216; G0463

== ENCOUNTER 2022-10-17 00:47 | Emergency (ER) | payer MEDICARE, OTHER, SELFPAY ==
[2022-10-17 00:48] VITALS: BP 135/80; PULSE 132; RESP 14; TEMP 36.9; O2SAT 99; BMI 19.7
--- NOTE | 2022-10-17 01:26 | RAD_ITS ---
EXAM: XR CHEST, 1 VIEW CLINICAL INDICATION: dyspnea dyspnea TECHNIQUE: Frontal view of the chest. COMPARISON: Chest x-ray 09/25/2022. FINDINGS: LUNGS AND PLEURAL SPACES: In general, the lungs are hyperexpanded, suggesting COPD. There is chronic interstitial prominence bilaterally with bilateral basilar atelectasis. There are small bilateral pleural effusions with interval worsening on the right. Active lower lobe infiltrates are thought to be likely. No pneumothorax. HEART: The heart is borderline in size. MEDIASTINUM: Central airways and mediastinal contour are unremarkable. BONES/JOINTS: Unremarkable. SOFT TISSUES: Unremarkable. VASCULATURE: There is atherosclerotic calcification of the aortic arch. RAD/Chest 1 View (Portable) IMPRESSION: 1. Suspect active bilateral basilar infiltrates overlying chronic atelectasis. 2. Small bilateral pleural effusions, with interval worsening on the right. 3. Chronic interstitial lung disease with evidence for COPD. Electronically Signed: Isaac Cardona MD at 2:32 EDT Reading Location ID and State: [facility] / [place] , Service support ,
[2022-10-17] MEDS: Metoprolol Tartrate 5 MG/5 ML Vial IV (01:42)
[2022-10-17 01:43] VITALS: BP 136/88; PULSE 127; RESP 16; TEMP 37.1; O2SAT 99
[2022-10-17 01:53] VITALS: BP 150/85; PULSE 103; RESP 16; O2SAT 99
[2022-10-17 01:58] LABS: Absolute Lymphocyte Count 1.51 X10^3/uL (0.83-4.51); Absolute Neutrophil Count 3.2 X10^3/uL (2.0-7.7); Basophil# 0.06 X10^3/uL; Basophil% 1.1 % (0-1); Eosinophil# 0.07 X10^3/uL; Eosinophils% 1.3 % (0-5); Hematocrit 29.9 % (40-54); Hemoglobin 8.7 g/dL (13.0-16.5); Lymphocyte # 1.51 X10^3/ul (0.83-4.51); Mean Corp Hgb Conc 29.1 g/dL (32-36); Mean Corpuscular Hgb 28.4 pg (27.0-32.0); Mean Corpuscular Volume 97.7 fL (80-94); Mean Platelet Vol. 10.5 fl (6.2-12.0); Monocyte# 0.49 X10^3/uL; Monocyte% 9.1 % (0-10); NRBC Flagged by Analyzer 0 % (0-5); Neutrophil # 3.24 X10^3/uL (2.7-7.7); Neutrophil % 60.1 % (47-70); Platelet Count 133 K/mm3 (150-450); RBC Distribution Width CV 15.9 % (11.6-14.6); RBC Distribution Width SD 57.1 fl (35.1-43.9); Red Blood Count 3.06 M/mm3 (4.6-6.2); White Blood Count 5.4 K/mm3 (4.4-11.0)
[2022-10-17] MEDS: Metoprolol(XL)Succ 100 MG Tablet PO (02:12)
[2022-10-17 02:14] VITALS: BP 129/79; PULSE 100; RESP 18; O2SAT 100
[2022-10-17 02:28] LABS: Anion Gap 0 (5-15); BUN 26 mg/dL (7-18); BUN/Creat Ratio 25.5 RATIO (10-20); Calcium,Total 8.5 mg/dL (8.5-10.1); Chloride 101 mmol/L (98-107); Creatinine, Serum 1.02 mg/dL (0.70-1.30); EST Glomerular Filtration Rate 74 mL/min (>60); Est Glom Filt Rate - Afr Amer 90 mL/min (>60); Estimated Creatinine Clearance 54.55 ml/min; Glucose 129 mg/dL (74-106); Magnesium 2.1 mg/dL (1.6-2.6); Potassium 4.4 mmol/L (3.5-5.1); Sodium Level 141 mmol/L (136-145); Thyroid Stim Hormone (TSH) 2.91 uIU/mL (0.358-3.74)
[2022-10-17 03:03] VITALS: BP 151/82; PULSE 104; RESP 15; O2SAT 99
--- NOTE | 2022-10-17 03:24 | EX.ED.DYSGE1 ---
HPI History of Present Illness Chief Complaint: Shortness of Breath Informant: patient, family and EMS Narrative Narrative: Patient is a 82-year-old male with past medical history of COPD and recent hospitalization for acute respiratory failure secondary to pneumonia as well as chronic atrial fibrillation. Patient was recently discharged from the hospital and states he has been doing well wearing 3 L of nasal cannula oxygen. He states that this evening he began to feel his heart race and with this developed shortness of breath and therefore called EMS to bring him in for evaluation. Patient states that he was taking metoprolol twice a day but ran out of his medication and he cannot see a new physician until Monday. Therefore he does not have medication to help with his symptoms which is another concern about his presentation this evening. [facility] Medical History (Updated 10/17/22 @ 03:[address] Reynaldo Reis, ) Anemia Chronic anticoagulation Endotracheally intubated History of atrial fibrillation History of COPD History of GI bleed Hypercapnic respiratory failure Home Medications albuterol sulfate 90 mcg/actuation aerosol inhaler 1 puff inhalation Q6H Breathing 09/26/22 [History Last Taken Unknown] apixaban 2.5 mg PO/SL BID blood thinner 09/26/22 [History Last Taken Unknown] aripiprazole 5 mg tablet 5 mg PO DAILY mental health 09/26/22 [History Last Taken Unknown] cyanocobalamin (vitamin B-12) 1 cap PO/SL DAILY vitamin 09/26/22 [History Last Taken Unknown] digoxin 125 mcg (0.125 mg) tablet 125 mcg PO QODAY heart rate 09/26/22 [History Last Taken Unknown] finasteride 5 mg tablet 5 mg PO DAILY prosate 09/26/22 [History Last Taken Unknown] furosemide 20 mg tablet 20 mg PO DAILY PRN Dyspnea 09/26/22 [History Last Taken Unknown] magnesium oxide 1 tab PO/SL BID magnesium replacement 09/26/22 [History Last Taken Unknown] metoprolol succinate 100 mg tablet,extended release 24 hr 100 mg PO DAILY heart rate 09/26/22 [History Last Taken Unknown] metoprolol tartrate 150 mg PO/SL BID heart 09/26/22 [History Last Taken Unknown] pantoprazole 40 mg tablet,delayed release (Protonix) 40 mg PO DAILY gerd 09/26/22 [History Last Taken Unknown] tamsulosin 0.4 mg capsule 0.4 mg PO DAILY prostate 09/26/22 [History Last Taken Unknown] ciprofloxacin HCl 500 mg tablet (Cipro) 500 mg PO Q12H 1 day #3 tabs 10/01/22 [Rx Last Taken Unknown] metoprolol succinate 100 mg tablet,extended release 24 hr 100 mg PO DAILY 30 days #30 tabs 10/17/22 [Rx Last Taken Unknown] metoprolol tartrate 75 mg tablet 150 mg (2 x 75 mg) PO BID 30 days #120 tabs 10/17/22 [Rx Last Taken Unknown] Allergy/AdvReac Type Severity Reaction Status Date / Time Penicillins Allergy Severe Hives Verified 10/17/22 00:53 Family History (Updated 09/25/22 @ 22:[address] Baldev Perez MD) Other S/P colon polypectomy Social History Smoking Status: Former smoker ROS ROS ED Constitutional Constitutional ED: Denies chills or fever(s) ENT ENT ED: Denies sore throat Cardiovascular Cardiovascular: Reports palpitations and racing heartbeat; Denies chest pain Respiratory/Chest Respiratory/Chest: Reports cough and dyspnea Gastrointestinal Gastrointestinal: Denies abdominal pain, diarrhea, nausea or vomiting Genitourinary Genitourinary ED: Denies dysuria Musculoskeletal Musculoskeletal: Denies myalgias Integumentary Denies rash Neurologic Neurologic: Denies headache(s) Hematologic/Lymphatic Hematologic/Lymphatic: Reports easy bleeding and easy bruising EXAM Physical Exam Const Vital Signs: 10/17/22 00:48 10/17/22 00:53 10/17/22 01:43 Temperature 98.5 F 98.7 F Temperature Source Oral Oral Pulse Rate 132 H 127 H Respiratory Rate 14 16 Respiratory Effort Normal Respiratory Depth Normal Respiratory Pattern Normal Blood Pressure 135/80 H 136/88 H Blood Pressure Mean 98 104 Pulse Ox 99 99 Oxygen Delivery Method Nasal Cannula Nasal Cannula Nasal Cannula Oxygen Flow Rate (L/min) 3 3 3 10/17/22 01:53 10/17/22 02:14 10/17/22 03:03 Temperature Temperature Source Pulse Rate 103 H 100 104 H Respiratory Rate 16 18 15 Respiratory Effort Respiratory Depth Respiratory Pattern Blood Pressure 150/85 H 129/79 H 151/82 H Blood Pressure Mean 106 95 105 Pulse Ox 99 100 99 Oxygen Delivery Method Nasal Cannula Nasal Cannula Nasal Cannula Oxygen Flow Rate (L/min) 3 3 3 10/17/22 03:54 Temperature Temperature Source Pulse Rate 97 Respiratory Rate 24 H Respiratory Effort Respiratory Depth Respiratory Pattern Blood Pressure 153/88 H Blood Pressure Mean Pulse Ox Oxygen Delivery Method Oxygen Flow Rate (L/min) Positive well nourished and well developed General Appearance ED: well developed HEENT HEENT Narrative: No tongue or lip swelling no oral lesions no airway edema or compromise Eyes PERRL and EOMs intact bilaterally Neck supple and no JVD Chest Wall palpation of chest normal Resp Resp Narrative: Breath sounds are diminished throughout with diffuse expiratory wheeze and rhonchi in the bilateral bases consistent with history of end-stage COPD as well as recent pneumonia Cardio Rate: other Other Details: Tachycardic rate with irregularly irregular rhythm consistent with atrial fibrillation with rapid ventricular response GI normal to inspection, nondistended, normoactive bowel sounds, non-tender, non-distended and no masses GI Narrative: No voluntary guarding or rigidity no pulsatile mass or fluid wave Auscultation: normoactive bowel sounds Palpation: soft Extremity normal to inspection Extremity Narrative: No asymmetric edema no pitting edema negative Homans' sign bilaterally Neuro oriented x3, CN's II-XII intact bilaterally and no sensory deficits noted Sensorium / Orientation: alert Motor Exam: strength 5/5 throughout Psych mental status grossly normal Skin no rashes or lesions noted MDM MDM MDM Narrative Medical decision making narrative: Patient presented to the ER satting 96 to 98% on his normal 3 L. His exam and EKG documented A-fib with RVR which correlates with the fact he is out of his metoprolol tartrate. I feel that his short of breath this evening is related to the tachycardia and not necessarily due to lung pathology. He has known A-fib but in order to ensure that he is not requiring a blood transfusion or having severe electrolyte derangement as a cause of his symptoms I like to perform basic blood work. Labs showed that he was slightly anemic from baseline but only down approximately one-point and above transfusion value. Otherwise there is no signs of acute kidney injury or severe electrolyte derangement. Patient was given IV Lopressor and then oral metoprolol succinate. Following this he had improvement of his heart rate and blood pressure and reported feeling much better. At this time as exam and work-up indicates that his shortness of breath was most likely related to A-fib with RVR and is now improved with improvement of the heart rate I do not feel there is need for admission based on the fact he is satting at in the high 90s at his baseline oxygen as well as the fact that he is afebrile with normal white blood cell count. The plan of care was discussed with the patient and family about renewing medications which they are agreeable to but otherwise as he is not having persistent tachycardia through the prescribed medications or hypoxia he is safe for discharge History & Record Review Discussion w/independent historian: Patient and Family Lab Data Attestation: I reviewed the patient's lab results. Labs: Laboratory Results - last 24 hr 10/17/22 01:35 WBC 5.4 RBC 3.06 L Hgb 8.7 L Hct 29.9 L MCV 97.7 H MCH 28.4 MCHC 29.1 L RDW Std Deviation 57.1 H RDW Coeff of Cory 15.9 H Plt Count 133 L MPV 10.5 Immature Gran % (Auto) 0.400 Neut % (Auto) 60.1 Lymph % (Auto) 28.0 [place] % (Auto) 9.1 Eos % (Auto) 1.3 Baso % (Auto) 1.1 H Absolute Neuts (auto) 3.2 Absolute Lymphs (auto) 1.51 Nucleated RBC % 0 Sodium 141 Potassium 4.4 Chloride 101 Carbon Dioxide 40.0 H Anion Gap 0 L BUN 26 H Creatinine 1.02 Estim Creat Clear Calc 54.55 Est GFR (MDRD) Af Amer 90 Est GFR (MDRD) Non-Af 74 BUN/Creatinine Ratio 25.5 H Glucose 129 H Calcium 8.5 Magnesium 2.1 TSH 2.91 Radiography Diagnostic Testing: Clinical Impression(s) from Imaging Studies Chest X-Ray 10/17/22 01:26 IMPRESSION: 1. Suspect active bilateral basilar infiltrates overlying chronic atelectasis. 2. Small bilateral pleural effusions, with interval worsening on the right. 3. Chronic interstitial lung disease with evidence for COPD. Electronically Signed: Isaac Cardona MD at 2:32 EDT , Chest x-ray as interpreted by the emergency medicine physician reveals bibasilar atelectasis with potential infiltrates as well as small bilateral pleural effusions. 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, Atrial fibrillation, chronic, COPD (chronic obstructive pulmonary disease) Instructions: AFib Dc Prescriptions: New metoprolol tartrate 75 mg tablet 150 mg PO BID 30 Days Qty: 120 0RF metoprolol succinate 100 mg tablet extended release 24 hr 100 mg PO DAILY 30 Days Qty: 30 0RF No Action metoprolol succinate 100 mg Tablet Extended Release 24 Hr 100 mg PO DAILY tamsulosin 0.4 mg Capsule 0.4 mg PO DAILY pantoprazole [Protonix] 40 mg Tablet,Delayed Release (Dr/Ec) 40 mg PO DAILY digoxin 125 mcg (0.125 mg) Tablet 125 mcg PO QODAY furosemide 20 mg Tablet 20 mg PO DAILY PRN (Reason: Dyspnea) albuterol sulfate 90 mcg/actuation Hfa Aerosol Inhaler 1 puff INHALATION Q6H finasteride 5 mg Tablet 5 mg PO DAILY aripiprazole 5 mg Tablet 5 mg PO DAILY Rx Instructions: take 1 tab by mouth once a day for 14 days ( filled on09/20/22) apixaban 2.5 mg 2.5 mg PO/SL BID cyanocobalamin (vitamin B-12) 1,000 mg 1 cap PO/SL DAILY magnesium oxide 420 mg 1 tab PO/SL BID metoprolol tartrate 75 mg 150 mg PO/SL BID Rx Instructions: take bid for 14 days (filled on 09/20/22) ciprofloxacin HCl [Cipro] 500 mg tablet 500 mg PO Q12H 1 Days Qty: 3 0RF Primary Care Provider: Mikey Castaneda Chi Referrals: Mikey Castaneda Chi, MD [Primary Care Provider] - Activity Restrictions/Additional Instructions: Continue all of your medications as directed by your doctor. Please begin taking your 150 mg of metoprolol tartrate twice a day like you were taking as it apparently was controlling your blood pressure and heart rate well. Talk to your family doctor about adding the once daily metoprolol succinate and return to the ER should you have any further concern Disposition Disposition: Home, Self Care Discharge Date/Time: 10/17/22 03:56
[2022-10-17] MEDS: Metoprolol Tartrate 50 MG Tablet 150 MG PO (03:49)
[2022-10-17 03:54] VITALS: BP 153/88; PULSE 97; RESP 24
== END 2022-10-17 03:56 | disposition home or self-care (01) ==
PROVIDERS: Emergency Provider Emergency Medicine; PCP Family Medicine Geriatric Medicine; Visit Provider Emergency Medicine
DX: J44.9 Chronic obstructive pulmonary disease, unspecified (principal); I48.20 Chronic atrial fibrillation, unspecified; Z79.01 Long term (current) use of anticoagulants; Z87.891 Personal history of nicotine dependence
CPT/HCPCS: 71045; 80048; 83735; 84443; 85025; 93005; 96374; 99285; J7030; A4216

== ENCOUNTER → 2022-10-19 | Outpatient (CLI) | payer MEDICARE, OTHER, SELFPAY ==
[2022-10-19 16:31] LABS: Absolute Lymphocyte Count 1.58 X10^3/uL (0.83-4.51); Absolute Neutrophil Count 4.1 X10^3/uL (2.0-7.7); Basophil# 0.06 X10^3/uL; Eosinophil# 0.11 X10^3/uL; Eosinophils% 1.7 % (0-5); Hemoglobin 9.7 g/dL (13.0-16.5); Lymphocyte # 1.58 X10^3/ul (0.83-4.51); Mean Corp Hgb Conc 27.7 g/dL (32-36); Mean Corpuscular Hgb 27.4 pg (27.0-32.0); Mean Corpuscular Volume 98.9 fL (80-94); Monocyte# 0.46 X10^3/uL; Monocyte% 7.3 % (0-10); NRBC Flagged by Analyzer 0 % (0-5); Neutrophil # 4.07 X10^3/uL (2.7-7.7); Neutrophil % 64.5 % (47-70); Platelet Count 169 K/mm3 (150-450); RBC Distribution Width CV 15.7 % (11.6-14.6); RBC Distribution Width SD 56.6 fl (35.1-43.9); Red Blood Count 3.54 M/mm3 (4.6-6.2); White Blood Count 6.3 K/mm3 (4.4-11.0)
[2022-10-19 17:03] LABS: ALB/GLOB Ratio 0.7 RATIO (0.9-2.4); AST(SGOT) 19 U/L (15-37); Alanine Aminotransfer ALT/SGPT 28 U/L (16-61); Albumin, Serum 2.9 g/dL (3.2-5.0); Alkaline Phosphatase 83 U/L (45-117); Anion Gap 0 (5-15); BUN 28 mg/dL (7-18); BUN/Creat Ratio 24.8 RATIO (10-20); Calcium,Total 8.8 mg/dL (8.5-10.1); Chloride 99 mmol/L (98-107); Creatinine, Serum 1.13 mg/dL (0.70-1.30); EST Glomerular Filtration Rate 66 mL/min (>60); Est Glom Filt Rate - Afr Amer 80 mL/min (>60); Globulin 4.1 g/dL (2.2-4.2); Glucose 90 mg/dL (74-106); Potassium 5.4 mmol/L (3.5-5.1); Sodium Level 141 mmol/L (136-145)
[2022-10-19 17:04] LABS: BNP,B-Type NATRIURETIC PEPTIDE 813.1 pg/mL (0-100)
[2022-10-19 18:36] LABS: Hepatitis C Antibody Non-Reactive (Nonreactive); Vitamin D,25 Hydroxy 39.6 ng/mL
== END | disposition home or self-care (01) ==
LOC: POLAB3 15:00
PROVIDERS: PCP Family Medicine Geriatric Medicine; Visit Provider Family Medicine Geriatric Medicine
DX: Z00.00 Encounter for general adult medical examination without abnormal findings (principal); J44.9 Chronic obstructive pulmonary disease, unspecified; I50.32 Chronic diastolic (congestive) heart failure; I48.91 Unspecified atrial fibrillation; N40.0 Benign prostatic hyperplasia without lower urinary tract symptoms; Z13.89 Encounter for screening for other disorder
CPT/HCPCS: 36415; 80053; 82306; 83880; 84443; 85025; 86803

== ENCOUNTER → 2022-10-21 | Outpatient (CLI) | payer MEDICARE, OTHER, SELFPAY ==
[2022-10-21 13:10] LABS: Anion Gap 0 (5-15); BUN 32 mg/dL (7-18); BUN/Creat Ratio 29.6 RATIO (10-20); Calcium,Total 8.7 mg/dL (8.5-10.1); Chloride 99 mmol/L (98-107); Creatinine, Serum 1.08 mg/dL (0.70-1.30); EST Glomerular Filtration Rate 70 mL/min (>60); Est Glom Filt Rate - Afr Amer 84 mL/min (>60); Glucose 98 mg/dL (74-106); Potassium 4.7 mmol/L (3.5-5.1); Sodium Level 140 mmol/L (136-145)
== END | disposition home or self-care (01) ==
LOC: POLAB3 11:43
PROVIDERS: PCP Family Medicine Geriatric Medicine; Visit Provider Family Medicine Geriatric Medicine
DX: R53.83 Other fatigue (principal)
CPT/HCPCS: 36415; 80048

== ENCOUNTER → 2022-10-28 | Outpatient (CLI) | payer MEDICARE, OTHER, SELFPAY ==
[2022-10-28 12:47] LABS: Absolute Lymphocyte Count 1.52 X10^3/uL (0.83-4.51); Absolute Neutrophil Count 6.6 X10^3/uL (2.0-7.7); Basophil# 0.07 X10^3/uL; Basophil% 0.8 % (0-1); Eosinophil# 0.11 X10^3/uL; Eosinophils% 1.2 % (0-5); Hematocrit 38.6 % (40-54); Hemoglobin 11.1 g/dL (13.0-16.5); Lymphocyte # 1.52 X10^3/ul (0.83-4.51); Lymphocyte % 16.4 % (19-41); Mean Corp Hgb Conc 28.8 g/dL (32-36); Mean Corpuscular Hgb 27.5 pg (27.0-32.0); Mean Corpuscular Volume 95.5 fL (80-94); Mean Platelet Vol. 10.3 fl (6.2-12.0); Monocyte# 0.86 X10^3/uL; Monocyte% 9.3 % (0-10); NRBC Flagged by Analyzer 0 % (0-5); Neutrophil # 6.64 X10^3/uL (2.7-7.7); Neutrophil % 71.8 % (47-70); Platelet Count 219 K/mm3 (150-450); RBC Distribution Width CV 15.8 % (11.6-14.6); RBC Distribution Width SD 55.8 fl (35.1-43.9); Red Blood Count 4.04 M/mm3 (4.6-6.2); White Blood Count 9.3 K/mm3 (4.4-11.0)
[2022-10-28 13:05] LABS: BNP,B-Type NATRIURETIC PEPTIDE 438.2 pg/mL (0-100)
[2022-10-28 13:48] LABS: Anion Gap 4 (5-15); BUN 27 mg/dL (7-18); BUN/Creat Ratio 18.2 RATIO (10-20); Chloride 89 mmol/L (98-107); Creatinine, Serum 1.48 mg/dL (0.70-1.30); EST Glomerular Filtration Rate 48 mL/min (>60); Est Glom Filt Rate - Afr Amer 59 mL/min (>60); Glucose 109 mg/dL (74-106); Sodium Level 137 mmol/L (136-145)
== END | disposition home or self-care (01) ==
LOC: POLAB3 11:48
PROVIDERS: PCP Family Medicine Geriatric Medicine; Visit Provider Family Medicine Geriatric Medicine
DX: R53.83 Other fatigue (principal)
CPT/HCPCS: 36415; 80048; 83880; 85025

== ENCOUNTER 2022-10-30 19:44 | Emergency (ER) | payer MEDICARE, OTHER, SELFPAY ==
[2022-10-30 19:47] VITALS: BP 104/62; PULSE 76; RESP 18; TEMP 36.7; O2SAT 92
--- NOTE | 2022-10-30 20:15 | EKG12_ITS ---
Test Reason : DYSRHYTHMIA Blood Pressure : / mmHG Vent. Rate : 084 BPM Atrial Rate : 000 BPM P-R Int : 000 ms QRS Dur : 086 ms QT Int : 364 ms P-R-T Axes : 000 067 044 degrees QTc Int : 430 ms Atrial fibrillation Abnormal ECG Confirmed by TAMMIE KEE, OCHOA ([id number]), videotape editor JOSE JEFFERSON ([id number]) on 11/03/2022 8:43:28 AM Referred By: MARICHUY Confirmed By:SAIMA CHO MD
--- NOTE | 2022-10-30 20:15 | CT_ITS ---
STUDY: CT ABDOMEN AND PELVIS WITH CONTRAST REASON FOR EXAM: Male, 82 years old. abdominal pain RADIATION DOSAGE (If Supplied By Facility): CTDIvol = ( 15.84 ) mGy, DLP = ( 1085.1 ) mGycm TECHNIQUE: Transaxial images were obtained from the dome of the diaphragm to the symphysis pubis without oral contrast. IV 100mL Isovue-370 was administered. Sagittal and coronal images were reconstructed. Individualized dose optimization techniques were used for this CT. COMPARISON: None. FINDINGS: Small right greater than left pleural effusions. Calcific coronary artery disease and aortic valve disease. Normal liver. Normal gallbladder and extrahepatic biliary system. Normal spleen. Normal pancreas. Normal bilateral adrenal glands. Multiple simple right renal cortical cysts measuring up to 4.3 cm. Normal left kidney. Normal visualized stomach. Normal small intestine. Normal colon. Appendix not identified. Infrarenal fusiform abdominal aortic aneurysm measures 5.8 cm x 5.8 cm in AP and transverse dimensions. There is an aorto by iliac stent graft extending from the renal arteries to the iliac bifurcations bilaterally. No evidence of endoleak. Normal inferior vena cava. Normal retroperitoneum. Normal urinary bladder. Normal abdominal wall. Diffuse demineralization. Compression fracture T12 and L3. CT/Abdomen/Pelvis W IV Cont ONLY IMPRESSION: Small bilateral pleural effusions. The abdominal aortic aneurysm and patent aortobiiliac stent graft. Compression fractures, age indeterminate. Electronically Signed: Chung Coughlin MD at 22:48 EDT ,
[2022-10-30 20:20] VITALS: BMI 20.7
--- NOTE | 2022-10-30 20:24 | EDS_ITS ---
HPI <MARK Munoz - Last Filed: 10/30/22 20:32> History of Present Illness Chief Complaint: Syncope Narrative Narrative: Patient is an 82-year-old male with history of atrial fibrillation, CHF, on hypertension, on 3 L of nasal cannula oxygen daily on Eliquis presents the emergency department for feeling of dizziness, chest pain. Patient states that he was eating dinner tonight, he states he was eating fast and could not stop because it was so good. Patient states while he was playing checkers after dinner, he had a sudden onset of nausea, feeling of dizziness like he might pass out. He also complained of left-sided chest pain. Patient continued to have these feelings he is here for evaluation. [facility] <MARK Munoz - Last Filed: 10/30/22 20:32> [facility] Medical History (Updated 10/30/22 @ 23:[address] Taran English, DO) Anemia Chronic anticoagulation Endotracheally intubated History of atrial fibrillation History of COPD History of GI bleed Hypercapnic respiratory failure Home Medications albuterol sulfate 90 mcg/actuation aerosol inhaler 1 puff inhalation Q6H Breathing 09/26/22 [History Last Taken Unknown] apixaban 2.5 mg PO/SL BID blood thinner 09/26/22 [History Last Taken Unknown] finasteride 5 mg tablet 5 mg PO DAILY prosate 09/26/22 [History Last Taken Unknown] furosemide 20 mg tablet 20 mg PO DAILY PRN Dyspnea 09/26/22 [History Last Taken Unknown] pantoprazole 40 mg tablet,delayed release (Protonix) 40 mg PO DAILY gerd 09/26/22 [History Last Taken Unknown] tamsulosin 0.4 mg capsule 0.4 mg PO DAILY prostate 09/26/22 [History Last Taken Unknown] metoprolol succinate 100 mg tablet,extended release 24 hr 100 mg PO DAILY 30 days #30 tabs 10/17/22 [Rx Last Taken Unknown] metoprolol tartrate 75 mg tablet 150 mg (2 x 75 mg) PO BID 30 days #120 tabs 10/17/22 [Rx Last Taken Unknown] azithromycin 250 mg tablet 250 mg PO DAILY #4 TABLETS 10/30/22 [Rx Last Taken Unknown] Allergy/AdvReac Type Severity Reaction Status Date / Time Penicillins Allergy Severe Hives Verified 10/30/22 19:50 Family History (Updated 09/25/22 @ 22:[address] Baldev Perez MD) Other S/P colon polypectomy Social History Smoking Status: Former smoker ROS <Kristofer HoffMARK - Last Filed: 10/30/22 20:32> ROS ED ROS Narrative Constitutional: Negative for fever, chills, weight loss. Positive for weakness Eyes: Negative for vision loss, vision change, double vision ENT: Negative for any sore throat, ear pain, congestion Cardiovascular: Negative for any tightness, palpitations. Positive chest pain Respiratory: Negative for any cough, sputum production, hemoptysis, dyspnea, dyspnea on exertion, orthopnea Gastrointestinal: Negative for any vomiting, constipation, blood in stool, blood in vomit. Positive for abdominal pain, nausea, diarrhea : Negative for any urinary frequency, dysuria, retention, blood in urine Muscle skeletal: Negative for any muscle joint pain, stiffness, myalgias, arthralgias, neck pain, back pain Neurological: Negative for any headache, syncope, numbness or tingling, dizziness. Positive for near syncope Skin: Negative for any rashes, lumps, itching, abrasions, lacerations Psychiatric: Negative for any depression, anxiety, stress, suicidal ideation, homicidal ideation Hematologic: Negative for any easy bruising, excessive bruising, easy bleeding Allergies: Negative for any eczema, hives, rash EXAM <MARK Munoz - Last Filed: 10/30/22 20:32> Physical Exam Narrative Exam Narrative: Vital signs reviewed. HEET: Head normocephalic atraumatic, TMs clear bilaterally. Posterior pharynx is clear, moist mucous membranes. Nares clear bilaterally. Neck: Supple with no lymphadenopathy or tenderness. No signs of meningismus, negative jolt sign. Cardiac: Irregular rate no murmurs gallops or rubs, equal peripheral pulses bilaterally. Respiratory: Patient has expiratory wheezes, crackles throughout pulmonary exam.. No chest tenderness. Abdomen: Soft, nondistended. No abdominal bruit or pulsatile masses. No hepatosplenomegaly. Tenderness to the right mid abdomen, left mid abdomen. Extremities: No peripheral edema, no signs of gross trauma or deformity. Active full range of motion of all extremities. Neuro: Cranial nerves II through XII intact, no focal neurological deficits. NIH stroke scale 0. Negative for any dizziness or confusion. Skin: Clean dry and intact with no rash, purpura, petechiae, vesicles or pustules. Backs/flank: No CVA tenderness, no midline spinal tenderness, no deformity. Psych: Normal mood and affect. No SI, HI or acute psychosis. Const Vital Signs: 10/30/22 19:47 10/30/22 20:07 10/30/22 20:20 Temperature 98.0 F Temperature Source Temporal Pulse Rate 76 Respiratory Rate 18 Respiratory Effort Normal Non-Labored Respiratory Pattern Normal Blood Pressure 104/62 Blood Pressure Mean 76 Pulse Ox 92 Oxygen Delivery Method Nasal Cannula Nasal Cannula Oxygen Flow Rate (L/min) 3 3 10/30/22 20:41 Temperature Temperature Source Pulse Rate 88 Respiratory Rate 18 Respiratory Effort Respiratory Pattern Blood Pressure 113/68 Blood Pressure Mean 83 Pulse Ox 96 Oxygen Delivery Method Nasal Cannula Oxygen Flow Rate (L/min) 3 Positive cachectic General Appearance ED: cachectic Nutritional Appearance: cachectic <Dr. Taran English DO - Last Filed: 10/30/22 23:37> Physical Exam Const Vital Signs: 10/30/22 19:47 10/30/22 20:07 10/30/22 20:20 Temperature 98.0 F Temperature Source Temporal Pulse Rate 76 Respiratory Rate 18 Respiratory Effort Normal Non-Labored Respiratory Pattern Normal Blood Pressure 104/62 Blood Pressure Mean 76 Pulse Ox 92 Oxygen Delivery Method Nasal Cannula Nasal Cannula Oxygen Flow Rate (L/min) 3 3 10/30/22 20:41 Temperature Temperature Source Pulse Rate 88 Respiratory Rate 18 Respiratory Effort Respiratory Pattern Blood Pressure 113/68 Blood Pressure Mean 83 Pulse Ox 96 Oxygen Delivery Method Nasal Cannula Oxygen Flow Rate (L/min) 3 MDM <MARK Munoz - Last Filed: 10/30/22 20:32> [facility] Lab Data Labs: Laboratory Results - last 24 hr 10/30/22 10/30/22 20:20 20:30 WBC 10.3 RBC 3.58 L Hgb 10.1 L Hct 33.7 L MCV 94.1 H MCH 28.2 MCHC 30.0 L RDW Std Deviation 54.9 H RDW Coeff of Cory 15.9 H Plt Count 214 MPV 10.7 Immature Gran % (Auto) 0.500 Neut % (Auto) 67.3 Lymph % (Auto) 19.9 [place] % (Auto) 10.0 Eos % (Auto) 1.3 Baso % (Auto) 1.0 Absolute Neuts (auto) 7.0 Absolute Lymphs (auto) 2.06 Nucleated RBC % 0 B-Natriuretic Peptide 462.1 H Urine Color Yellow Urine Clarity Clear Urine pH 7.0 Ur Specific [place] 1.010 Urine Protein 15 H Urine Glucose (UA) Normal Urine Ketones Negative Urine Occult Blood Negative Urine Nitrite Negative Urine Bilirubin Negative Urine Urobilinogen Normal Ur Leukocyte Esterase Negative Urine RBC 0 SEEN Urine WBC 0 SEEN Ur Squamous Epith Cells 0 SEEN Urine Bacteria 0 SEEN Urine Mucus 0 SEEN EKG Atrial fibrillation: Attestation: I personally reviewed and interpreted this EKG as follows: Interpretation: Atrial Fibrillation Comments: Atrial fibrillation, rate of 84 bpm, TN interval unknown, QRS duration 86 ms, no acute ST elevation, no acute infarct noted. Treatment and Re-Evaluation :: Patient is alert and orient x4. Patient on 3 L of nasal cannula daily. Patient presents the emergency department for left-sided chest pain, near syncope, abdominal pain. Patient will receive a full cardiac work-up including a abdominal work-up secondary to significant pain to the right lower, left lower quadrant. Patient is cachectic. However his vital signs are stable. Laboratory values, [address] scan of the abdomen pelvis well chest x-ray. Patient has minimal chest pain at this time which she rates a 1 or 2. All radiologic examinations were read, reviewed by the emergency department attending. From these reads, a plan of care will be put in place. <Dr. Taran English, DO - Last Filed: 10/30/22 23:37> [facility] Narrative Medical decision making narrative: I have personally performed a face to face assessment of the patient and have reviewed the LEONEL Note. I performed a substantive portion of the visit including all aspects of the following. My powers findings include: History: Patient presents with near syncopal episode that occurred today. Patient was eating dinner when he felt nauseated. Family states patient became diaphoretic. Patient states he felt like he was going to pass out but did not lose consciousness. Patient denies any chest pain or palpitations. Patient states he was having some abdominal pain. Patient states he called his primary care physician's office and was directed to come to the emergency department for possible infection. Exam: Vital signs are stable. Patient is afebrile. Patient is in no acute distress. Oral mucosa is pink and moist. Neck is supple. Trachea is midline. There is no JVD. Heart was irregularly irregular. Lungs are clear and equal bilaterally. Abdomen is soft. Bowel sounds are normal. There is some mild right lower quadrant tenderness. There is no rebound or guarding noted. Cranial nerves II through XII are intact. There are no focal motor or sensory deficits noted. Medical Decision Making: Differential diagnosis includes syncope, near syncope, cardiac dysrhythmia, cardiac ischemia, electrolyte abnormality, pneumonia, urinary tract infection, congestive heart failure, and anemia. EKG will be obtained to assess for cardiac dysrhythmia and cardiac ischemia. Chest x-ray will be obtained to assess for congestive heart failure and pneumonia. CT scan of the abdomen pelvis will be obtained to assess for aortic graft leaking, bowel perforation, and obstruction. CBC will be obtained to assess for anemia and leukocytosis. Comprehensive metabolic profile will be obtained to assess for hepatic function, renal function, and electrolyte abnormality. Lipase will be obtained to assess for pancreatitis. High-sensitivity troponin will be obtained to assess for cardiac ischemia. BNP will be obtained to assess for congestive heart failure. Urinalysis will be obtained to assess for urinary tract infection. CBC was reviewed. There is a mild anemia with a hemoglobin of 10.1 and hematocrit of 33.7. This was unchanged compared to previous results. Comprehensive metabolic profile was reviewed. CO2 was elevated at greater than 45. This is only slightly increased from previous results. BUN was 41 and creatinine was 1.4. This is consistent with prior results. BNP was reviewed and was slightly elevated at 462.1. This was improved compared to previous results. Lipase was reviewed and was normal at 23. High-sensitivity troponin was reviewed and was normal at 14. 2-hour repeat high-sensitivity troponin was reviewed and was normal at 11. Urinalysis was reviewed. There is no evidence of urinary tract infection or hematuria. Portable chest x-ray was obtained. There is 1 view. On my independent interpretation, there are bibasilar infiltrates. There is COPD noted. There are small pleural effusions noted bilaterally as well. Radiologist also interpreted the x-ray and agrees. CT scan of the abdomen and pelvis was obtained. There are small bilateral pleural effusions noted. There is an abdominal aortic aneurysm with graft in place. There is no leakage around the graft. There are compression fractures of undetermined age. This was interpreted by the radiologist was also independently reviewed by myself. Patient is feeling better on reevaluation. Patient is laughing and joking on examination. Patient was advised of his findings. Patient was given a dose of Zithromax here. Patient was given a prescription for Zithromax. Patient was instructed to take Tylenol or ibuprofen as needed for any pain or fevers. Patient was instructed to follow-up with his primary care physician in 5 to 7 days. Patient understood and was agreeable with the plan. All questions were answered. Lab Data Attestation: I reviewed the patient's lab results. Labs: Laboratory Results - last 24 hr 10/30/22 10/30/22 20:20 20:30 WBC 10.3 RBC 3.58 L Hgb 10.1 L Hct 33.7 L MCV 94.1 H MCH 28.2 MCHC 30.0 L RDW Std Deviation 54.9 H RDW Coeff of Cory 15.9 H Plt Count 214 MPV 10.7 Immature Gran % (Auto) 0.500 Neut % (Auto) 67.3 Lymph % (Auto) 19.9 [place] % (Auto) 10.0 Eos % (Auto) 1.3 Baso % (Auto) 1.0 Absolute Neuts (auto) 7.0 Absolute Lymphs (auto) 2.06 Nucleated RBC % 0 B-Natriuretic Peptide 462.1 H Urine Color Yellow Urine Clarity Clear Urine pH 7.0 Ur Specific [place] 1.010 Urine Protein 15 H Urine Glucose (UA) Normal Urine Ketones Negative Urine Occult Blood Negative Urine Nitrite Negative Urine Bilirubin Negative Urine Urobilinogen Normal Ur Leukocyte Esterase Negative Urine RBC 0 SEEN Urine WBC 0 SEEN Ur Squamous Epith Cells 0 SEEN Urine Bacteria 0 SEEN Urine Mucus 0 SEEN Discharge Plan Triage Chief Complaint: Syncope ED Midlevel Provider: Kristofer Hoff ED Provider: Taran English Dx/Rx/DC Orders Clinical Impression: Near syncope, Pneumonia Instructions: ED Pneumonia (Adult), ED Near-Fainting, Uncertain Cause Prescriptions: New azithromycin [azithromycin] 250 mg tablet 250 mg PO DAILY Qty: 4 0RF No Action tamsulosin 0.4 mg Capsule 0.4 mg PO DAILY pantoprazole [Protonix] 40 mg Tablet,Delayed Release (Dr/Ec) 40 mg PO DAILY furosemide 20 mg Tablet 20 mg PO DAILY PRN (Reason: Dyspnea) albuterol sulfate 90 mcg/actuation Hfa Aerosol Inhaler 1 puff INHALATION Q6H finasteride 5 mg Tablet 5 mg PO DAILY apixaban 2.5 mg 2.5 mg PO/SL BID metoprolol tartrate 75 mg tablet 150 mg PO BID 30 Days Qty: 120 0RF metoprolol succinate 100 mg tablet extended release 24 hr 100 mg PO DAILY 30 Days Qty: 30 0RF Primary Care Provider: Mikey Castaneda Chi Referrals: Mikey Castaneda Chi, MD [Primary Care Provider] - 5-7 Days Disposition Disposition: Home, Self Care
[2022-10-30 20:29] LABS: Absolute Lymphocyte Count 2.06 X10^3/uL (0.83-4.51); Eosinophil# 0.13 X10^3/uL; Eosinophils% 1.3 % (0-5); Hematocrit 33.7 % (40-54); Hemoglobin 10.1 g/dL (13.0-16.5); Lymphocyte # 2.06 X10^3/ul (0.83-4.51); Lymphocyte % 19.9 % (19-41); Mean Corpuscular Hgb 28.2 pg (27.0-32.0); Mean Corpuscular Volume 94.1 fL (80-94); Mean Platelet Vol. 10.7 fl (6.2-12.0); Monocyte# 1.03 X10^3/uL; NRBC Flagged by Analyzer 0 % (0-5); Neutrophil # 6.96 X10^3/uL (2.7-7.7); Neutrophil % 67.3 % (47-70); Platelet Count 214 K/mm3 (150-450); RBC Distribution Width CV 15.9 % (11.6-14.6); RBC Distribution Width SD 54.9 fl (35.1-43.9); Red Blood Count 3.58 M/mm3 (4.6-6.2); White Blood Count 10.3 K/mm3 (4.4-11.0)
[2022-10-30 20:39] LABS: Bacteria 0 SEEN /hpf (None Seen); Mucous, Urine 0 SEEN /hpf (<or=2+); Red Blood Cells-Urine 0 SEEN /hpf (0-5); Squamous Epithelial Cells - UA 0 SEEN /hpf (0-5); White Blood Cells 0 SEEN /hpf (0-5)
[2022-10-30 20:41] VITALS: BP 113/68; PULSE 88; RESP 18; O2SAT 96
[2022-10-30 20:42] LABS: Color, Urine Yellow (Yellow); Glucose, Dipstick Normal (Normal); Ketone-Dipstick Negative (Negative); Leukocyte Esterase-Dipstick Negative /ul (Negative); Nitrite-Dipstick Negative (Negative); Occult Blood-Urine Negative /ul (Negative); Protein-Dipstick 15 mg/dl (Negative); Urine Bilirubin Dipstick Negative (Negative); Urine Clarity Clear (Clear); Urine Urobilinogen Normal (Normal)
--- NOTE | 2022-10-30 20:42 | RAD_ITS ---
INDICATION: chest pain EXAMINATION/TECHNIQUE: X-RAY - portable upright AP chest x-ray COMPARISON: 10/17/2022 FINDINGS: LINES/DEVICES: None. LUNGS: Stable diffuse coarsening of interstitial markings with hazy bibasilar airspace opacities and small pleural effusions minimally changed from the prior study. Stable hyperinflation. MEDIASTINUM AND CARDIOVASCULAR STRUCTURES: Cardiac silhouette stable within upper normal limits. BONES AND SOFT TISSUES: No acute changes. RAD/Chest 1 View (Portable) IMPRESSION: COPD with bibasilar infiltrates and small pleural effusions. Electronically Signed: Bin Jaime MD at 21:26 EDT ,
[2022-10-30 20:55] LABS: BNP,B-Type NATRIURETIC PEPTIDE 462.1 pg/mL (0-100)
[2022-10-30 21:25] LABS: ALB/GLOB Ratio 0.7 RATIO (0.9-2.4); AST(SGOT) 11 U/L (15-37); Alanine Aminotransfer ALT/SGPT 14 U/L (16-61); Albumin, Serum 2.8 g/dL (3.2-5.0); Alkaline Phosphatase 94 U/L (45-117); BUN 41 mg/dL (7-18); BUN/Creat Ratio 29.3 RATIO (10-20); Calcium,Total 8.7 mg/dL (8.5-10.1); Carbon Dioxide > 45.0 mmol/L (21.0-32.0); Chloride 91 mmol/L (98-107); EST Glomerular Filtration Rate 52 mL/min (>60); Est Glom Filt Rate - Afr Amer 63 mL/min (>60); Estimated Creatinine Clearance 41.42 ml/min; Globulin 4.3 g/dL (2.2-4.2); Glucose 107 mg/dL (74-106); Lipase 23 U/L (13-75); Potassium 4.4 mmol/L (3.5-5.1); Protein, Total 7.1 g/dL (6.4-8.2); Sodium Level 139 mmol/L (136-145); Troponin-I HS (w/2H Reflex) 14 pg/mL (3.0-78.0)
[2022-10-30 22:26] LABS: Reflex Troponin-HS? (from REC) Y
[2022-10-30 23:00] VITALS: BP 118/79; PULSE 94; RESP 18; O2SAT 98
[2022-10-30 23:03] LABS: Troponin-I HS 11 pg/mL (3.0-78.0)
[2022-10-30] MEDS: Azithromycin 250 MG Tablet 500 MG PO (23:53)
[2022-10-31 00:10] VITALS: BP 133/87; PULSE 89; RESP 20; O2SAT 98
== END 2022-10-31 00:11 | disposition home or self-care (01) ==
PROVIDERS: Nurse Practitioner; Emergency Provider Emergency Medicine; PCP Family Medicine Geriatric Medicine; Visit Provider Emergency Medicine
DX: J18.9 Pneumonia, unspecified organism (principal); J44.9 Chronic obstructive pulmonary disease, unspecified; I11.0 Hypertensive heart disease with heart failure; I50.9 Heart failure, unspecified; I48.91 Unspecified atrial fibrillation; R55 Syncope and collapse; Z87.891 Personal history of nicotine dependence; Z79.01 Long term (current) use of anticoagulants; Z99.81 Dependence on supplemental oxygen
CPT/HCPCS: 71045; 74177; 80053; 81001; 83690; 83880; 84484; 85025; 93005; 99285; Q9967; A4216

== ENCOUNTER → 2022-11-29 | Outpatient (CLI) | payer MEDICARE, OTHER, SELFPAY ==
--- NOTE | 2022-11-29 09:07 | AAAS_ITS ---
Reason For Study: Screening / HX Ao Endograft Aorta Measurements Aorta Doppler Measurements Proximal aorta measures 2.85 x 2.83cm. in cross- Peak systolic flow velocities within the proximal sectional axis. aorta measure 48.7 cm/sec. Proximal aorta measures 2.83cm. in longitudinal Mid, limb 1, 45.1 cm/sec. axis. Mid, limb 2, 36.1 cm/sec. Aorta mid, 4.3 x 4.5 x 4.1 cm. Distal, limb 1, 34.3 m/sec. Mid, limb 1, 1.16 x 1.15 x 1.11 cm. Distal, limb 2, 37.9 cm/sec. Mid, limb 2, 1.21 x 1.11 x 1.12 cm. Aorta distal, 5.59 x 5.87 x 5.84 cm. Distal, limb 1, 1.14 x 1.18 x 1.38 cm. Distal, limb 2, 1.10 x 1.13 x 1.32 cm. Left Iliac Artery Left iliac artery measures 1.45 x 1.35 cm. in the cross-sectional axis. Left iliac artery measures 1.34 cm. in the longitudinal axis. Peak systolic velocity in the left iliac artery measures 33.4 cm/sec. Right Iliac Artery Right iliac artery measures 1.30 x 1.50 cm. in the cross-sectional axis. Right iliac artery measures 1.27 cm. in the longitudinal axis. Peak systolic velocity in the right iliac artery measures 41.2 cm/sec. Procedure Aorta IVC Iliac vasculature or bypass grafts [id number]. The exam was diagnostic. Technically difficult study due to patient not NPO and bowel gas. Exam performed in department. VL/AAA Screening Interpretation Summary Abdominal aortic aneurysm s/p prior endovascular repair with 5.87 cm residual a neurysm sac. No flow visualized within the aneurysm sac Aortic main body patent with normal velocities Bilateral iliac limbs patent with normal velocities. Ordering Physician: Mikey Castaneda Chi Referring Physician: Mikey Castaneda Chi Performed By: Kishore Dugan RVOli
== END | disposition home or self-care (01) ==
PROVIDERS: PCP Family Medicine Geriatric Medicine; Referring Provider Family Medicine Geriatric Medicine; Visit Provider Family Medicine Geriatric Medicine
DX: F17.210 Nicotine dependence, cigarettes, uncomplicated (principal)
CPT/HCPCS: 76706

== ENCOUNTER → 2022-11-30 | Outpatient (CLI) | payer MEDICARE, OTHER, SELFPAY ==
--- NOTE | 2022-11-30 15:36 | CT_ITS ---
EXAM: CT CHEST, LUNG CANCER SCREENING WITHOUT INTRAVENOUS CONTRAST CLINICAL INDICATION: NICOTINE DEPENDENCE. 1PPD X 70 YEARS. EMPHYSEMA TECHNIQUE: Helically acquired images were obtained of the chest without intravenous contrast using low dose (LDCT) lung cancer screening protocol. This CT exam was performed using one or more of the following dose reduction techniques: automated exposure control, adjustment of the mA and/or kV according to patient size, and/or use of iterative reconstruction technique. COMPARISON: No relevant prior studies available. FINDINGS: LUNGS AND PLEURAL SPACES: There are small bilateral effusions with right basilar consolidation which may represent atelectasis. There are emphysematous changes in both lungs. There is a calcified nodule in the left lung apex. There is mild scarring in the right lung apex. There is mild bronchiectasis seen within the lung bases. No pneumothorax. HEART: Unremarkable. Heart size is normal. No pericardial effusion. No significant coronary artery calcifications. MEDIASTINUM: Unremarkable. No mediastinal or hilar adenopathy. Esophagus is unremarkable. No hiatal hernia. THYROID: Unremarkable. No thyroid lesions. BONES/JOINTS: Unremarkable. No suspicious lytic or blastic abnormality. VASCULATURE: Unremarkable. Thoracic aorta is non-dilated. LYMPH NODES: Unremarkable. No enlarged lymph nodes. CT/Low Dose CT Lung Screening IMPRESSION: Diffuse emphysematous change throughout both lungs. There is bronchiectasis in both lung bases. There are small bilateral effusions with bibasilar atelectasis. There are no pulmonary nodules. Lung-RADS score: 1S - Additional clinically significant or potentially clinically significant findings are described. Recommend continued annual screening with a low-dose CT (LDCT) in 12 months. Electronically Signed: Pardeep Cates MD at 22:25 EDT ,
== END | disposition home or self-care (01) ==
LOC: CT 15:35
PROVIDERS: PCP Family Medicine Geriatric Medicine; Referring Provider Family Medicine Geriatric Medicine; Visit Provider Family Medicine Geriatric Medicine
DX: F17.210 Nicotine dependence, cigarettes, uncomplicated (principal)
CPT/HCPCS: 71271

== ENCOUNTER → 2022-12-02 | Outpatient (CLI) | payer MEDICARE, OTHER, SELFPAY ==
[2022-12-02 12:47] LABS: Absolute Lymphocyte Count 2.09 X10^3/uL (0.83-4.51); Absolute Neutrophil Count 7.6 X10^3/uL (2.0-7.7); Basophil# 0.08 X10^3/uL; Basophil% 0.7 % (0-1); Eosinophil# 0.22 X10^3/uL; Hematocrit 40.5 % (40-54); Lymphocyte # 2.09 X10^3/ul (0.83-4.51); Lymphocyte % 19.1 % (19-41); Mean Corp Hgb Conc 29.6 g/dL (32-36); Mean Corpuscular Hgb 28.4 pg (27.0-32.0); Mean Platelet Vol. 10.9 fl (6.2-12.0); Monocyte# 0.93 X10^3/uL; Monocyte% 8.5 % (0-10); NRBC Flagged by Analyzer 0 % (0-5); Neutrophil # 7.57 X10^3/uL (2.7-7.7); Neutrophil % 69.4 % (47-70); Platelet Count 172 K/mm3 (150-450); RBC Distribution Width CV 17.2 % (11.6-14.6); RBC Distribution Width SD 60.4 fl (35.1-43.9); Red Blood Count 4.22 M/mm3 (4.6-6.2); White Blood Count 10.9 K/mm3 (4.4-11.0)
[2022-12-02 13:16] LABS: Anion Gap 4 (5-15); BUN 42 mg/dL (7-18); BUN/Creat Ratio 33.9 RATIO (10-20); Chloride 91 mmol/L (98-107); Creatinine, Serum 1.24 mg/dL (0.70-1.30); EST Glomerular Filtration Rate 59 mL/min (>60); Est Glom Filt Rate - Afr Amer 72 mL/min (>60); Glucose 108 mg/dL (74-106); Potassium 4.8 mmol/L (3.5-5.1); Sodium Level 139 mmol/L (136-145)
[2022-12-06 15:35] LABS: BNP,B-Type NATRIURETIC PEPTIDE 284.5 pg/mL (0-100)
== END | disposition home or self-care (01) ==
LOC: POLAB3 11:11
PROVIDERS: PCP Family Medicine Geriatric Medicine; Visit Provider Family Medicine Geriatric Medicine
DX: R53.83 Other fatigue (principal); I50.33 Acute on chronic diastolic (congestive) heart failure
CPT/HCPCS: 36415; 80048; 83880; 85025

== ENCOUNTER → 2022-12-07 | Outpatient (CLI) | payer MEDICARE, OTHER, SELFPAY | END | disposition home or self-care (01) | LOC: LABSPEC 16:36 | PROVIDERS: PCP Family Medicine Geriatric Medicine; Visit Provider Family Medicine Geriatric Medicine | DX: N39.0 Urinary tract infection, site not specified (principal) | CPT/HCPCS: 87077; 87086; 87088; 87186 ==

== ENCOUNTER 2022-12-11 16:45 | Inpatient (IN) | payer OTHER, SELFPAY ==
[2022-12-11 16:47] VITALS: BP 138/67; PULSE 85; RESP 16; TEMP 37; O2SAT 97; BMI 17.8
--- NOTE | 2022-12-11 17:21 | EDS_ITS ---
HPI HPI - Psych History of Present Illness Chief Complaint: Mental Health Informant: patient Narrative Narrative: Patient states he is extremely upset that his son and is having thoughts of killing him and himself. Still admits to suicidal ideation. Patient will not go into detail about what the issue was. He also states he was having some pain with urinating, and was put on an antibiotic he thinks maybe a few days ago but he cannot remember what antibiotic he is on for an infection that he was diagnosed with. He states the dysuria is better since he was taking Tylenol. Denies any other physical symptoms. [facility] Medical History Anemia Chronic anticoagulation Endotracheally intubated History of atrial fibrillation History of COPD History of GI bleed Hypercapnic respiratory failure Home Medications albuterol sulfate 90 mcg/actuation aerosol inhaler 1 puff inhalation Q6H Breathing 09/26/22 [History Last Taken Unknown] apixaban 2.5 mg PO/SL BID blood thinner 09/26/22 [History Last Taken 12/11/22] finasteride 5 mg tablet 5 mg PO DAILY prosate 09/26/22 [History Last Taken 12/10/22] pantoprazole 40 mg tablet,delayed release (Protonix) 40 mg PO DAILY gerd 09/26/22 [History Last Taken 12/11/22] tamsulosin 0.4 mg capsule 0.4 mg PO DAILY prostate 09/26/22 [History Last Taken 12/10/22] metoprolol succinate 100 mg tablet,extended release 24 hr 100 mg PO DAILY 30 days #30 tabs 10/17/22 [Rx Last Taken 12/10/22] metoprolol tartrate 75 mg tablet 150 mg (2 x 75 mg) PO BID 30 days #120 tabs 10/17/22 [Rx Last Taken 12/11/22] aripiprazole 5 mg tablet 5 mg PO DAILY 12/11/22 [History Last Taken 12/11/22] ciprofloxacin HCl 250 mg tablet 250 mg PO Q12H 12/11/22 [History Last Taken 12/11/22] citalopram 10 mg tablet (Celexa) 10 mg PO DAILY 12/11/22 [History Last Taken Unknown] cyanocobalamin (vitamin B-12) 1,000 mcg tablet 1,000 mcg PO DAILY 12/11/22 [History Last Taken Unknown] digoxin 125 mcg (0.125 mg) tablet 0.125 mg PO .QOD 12/11/22 [History Last Taken 12/10/22] magnesium oxide 420 mg tablet 420 mg PO BID 12/11/22 [History Last Taken Unknown] sacubitril 24 mg-valsartan 26 mg tablet (Entresto) 1 tab PO DAILY 12/11/22 [History Last Taken 12/11/22] Allergy/AdvReac Type Severity Reaction Status Date / Time Penicillins Allergy Severe Hives Verified 12/11/22 16:56 Family History (Updated 09/25/22 @ 22:[address] Baldev Perez MD) Other S/P colon polypectomy Social History Smoking Status: Former smoker ROS ROS ED Constitutional Constitutional ED: Denies chills or fever(s) Eyes Eyes: Denies change in vision or diplopia ENT ENT ED: Denies rhinorrhea or sore throat Cardiovascular Cardiovascular: Denies chest pain or palpitations Respiratory/Chest Respiratory/Chest: Denies cough or dyspnea Gastrointestinal Gastrointestinal: Denies abdominal pain, diarrhea, nausea or vomiting Genitourinary Genitourinary ED: Reports dysuria; Denies hematuria Musculoskeletal Musculoskeletal: Denies back pain or neck pain Integumentary Denies abscess or rash Neurologic Neurologic: Denies headache(s), paresthesias or weakness Psychiatric Psychiatric: Reports homicidal ideation, suicidal ideation and suicidal thoughts; Denies hallucinations EXAM Physical Exam Const Vital Signs: 12/11/22 16:47 12/11/22 19:47 12/11/22 19:37 Temperature 98.6 F Temperature Source Temporal Pulse Rate 85 56 L 64 Respiratory Rate 16 18 20 H Respiratory Pattern Normal Blood Pressure 138/67 H 93/52 L Blood Pressure Mean 90 65 Pulse Ox 97 88 Oxygen Delivery Method Room Air Nasal Cannula Oxygen Flow Rate (L/min) 4 12/11/22 22:00 Temperature Temperature Source Pulse Rate Respiratory Rate 16 Respiratory Pattern Blood Pressure Blood Pressure Mean Pulse Ox Oxygen Delivery Method Oxygen Flow Rate (L/min) Positive well nourished and well developed General Appearance ED: well developed and NAD HEENT Reports moist mucous membranes normocephalic and atraumatic Eyes PERRL and EOMs intact bilaterally Neck full ROM and supple Resp normal respiratory effort and clear to auscultation bilaterally Cardio Rate: Negative for tachycardic Rhythm: abnormal rhythm irregularly irregular GI non-distended GI Narrative: Mild suprapubic tenderness only. No guarding or rebound tenderness. Auscultation: normoactive bowel sounds Palpation: soft Back/Spine no CVA tenderness General Back: other FROM Extremity normal to inspection General Extremety ED: Negative for edema, pulses abnormal or tenderness General Extremity: Negative for edema or pulses abnormal Neuro oriented x3, CN's II-XII intact bilaterally and no sensory deficits noted Sensorium / Orientation: awake and alert Motor Exam: strength 5/5 throughout Psych thought process normal, cooperative, speech normal, activity/motor behavior normal and denies hallucinations Psych Narrative: Angry when discussing his son but cooperative with us. Logical sequential goal- directed thoughts. Thought Content: suicidality and homicidality Skin no rashes or lesions noted and no wounds MDM MDM MDM Narrative Medical decision making narrative: Labs and toxicology obtained on this patient, they are normal except for a slightly elevated potassium at 5.2, this is just barely outside of the normal range, and he has no EKG changes of hyperkalemia, so treatment is not indicated at this time and his renal function is normal. He just needs a repeat check at some point in the near future and he is medically cleared at this time. He is in A-fib and has a history of it, he is rate controlled and asymptomatic with regards to it. Patient has been observed for multiple hours waiting for crisis to be available to evaluate him. He has been stable and cooperative. Lab Data Attestation: I reviewed the patient's lab results. Labs: Laboratory Results - last 24 hr 12/11/22 12/11/22 17:45 17:48 WBC 8.0 RBC 4.37 L Hgb 12.0 L Hct 42.3 MCV 96.8 H MCH 27.5 MCHC 28.4 L RDW Std Deviation 61.4 H RDW Coeff of Cory 17.0 H Plt Count 165 MPV 10.5 Immature Gran % (Auto) 0.400 Neut % (Auto) 67.0 Lymph % (Auto) 22.1 Bennett % (Auto) 7.8 Eos % (Auto) 1.9 Baso % (Auto) 0.8 Absolute Neuts (auto) 5.4 Absolute Lymphs (auto) 1.77 Nucleated RBC % 0 Sodium 136 Potassium 5.2 H Chloride 96 L Carbon Dioxide 41.0 H Anion Gap -1 L BUN 24 H Creatinine 1.07 Estim Creat Clear Calc 46.94 Est GFR (MDRD) Af Amer 85 Est GFR (MDRD) Non-Af 70 BUN/Creatinine Ratio 22.4 H Glucose 96 Calcium 9.6 Total Bilirubin 0.30 AST 12 L ALT 11 L Alkaline Phosphatase 71 Total Protein 7.3 Albumin 2.9 L Globulin 4.4 H Albumin/Globulin Ratio 0.7 L Urine Color Yellow Urine Clarity Clear Urine pH 6.0 Ur Specific [place] 1.020 Urine Protein 15 H Urine Glucose (UA) Normal Urine Ketones Negative Urine Occult Blood 10 H Urine Nitrite Negative Urine Bilirubin Negative Urine Urobilinogen Normal Ur Leukocyte Esterase 25 H Urine RBC 0 SEEN Urine WBC 0-5 SEEN Ur Squamous Epith Cells 0 SEEN Urine Bacteria 0 SEEN Hyaline Casts 0-5 SEEN Urine Mucus 0 SEEN Urine Opiates Screen NEGATIVE Urine Methadone Screen NEGATIVE Ur Barbiturates Screen NEGATIVE Ur Phencyclidine Scrn NEGATIVE Ur Amphetamines Screen NEGATIVE MDMA (Ecstasy) Screen NEGATIVE U Benzodiazepines Scrn NEGATIVE Urine Cocaine Screen NEGATIVE U Cannabinoids Screen NEGATIVE Ur Drug Screen Comment Ethyl Alcohol < 3.0 Radiography Diagnostic Testing: Clinical Impression(s) from Imaging Studies Chest X-Ray 12/11/22 18:10 IMPRESSION: COPD and findings which may be consistent with chronic asbestos exposure. No acute cardiopulmonary pathology. Electronically Signed: Efra Cho MD at 19:04 EDT Reading Location ID and State: [facility] / [place] Tel , Service support , Rhythm Strip Rhythm Strip: A-fib Rate: 80 Ectopy: None EKG Initial EKG: Attestation: I personally reviewed and interpreted this EKG as follows: Interpretation: No Acute Injury Pattern and Atrial Fibrillation Prior EKG tracings: available for review Prior: Unchanged Management Discussion w/another healthcare provider: Behavioral health Discharge Plan Triage Chief Complaint: Mental Health ED Provider: Nathaniel Martel Dx/Rx/DC Orders Clinical Impression: Suicidal ideation, Homicidal ideation Prescriptions: No Action tamsulosin 0.4 mg Capsule 0.4 mg PO DAILY pantoprazole [Protonix] 40 mg Tablet,Delayed Release (Dr/Ec) 40 mg PO DAILY albuterol sulfate 90 mcg/actuation Hfa Aerosol Inhaler 1 puff INHALATION Q6H finasteride 5 mg Tablet 5 mg PO DAILY apixaban 2.5 mg 2.5 mg PO/SL BID metoprolol tartrate 75 mg tablet 150 mg PO BID 30 Days Qty: 120 0RF metoprolol succinate 100 mg tablet extended release 24 hr 100 mg PO DAILY 30 Days Qty: 30 0RF aripiprazole 5 mg tablet 5 mg PO DAILY Patient Comments: take 1 tablet by mouth once daily digoxin 125 mcg (0.125 mg) tablet 0.125 mg PO .QOD Patient Comments: take 1 tablet by mouth once daily Entresto 24-26 mg tablet 1 tab PO DAILY ciprofloxacin HCl 250 mg tablet 250 mg PO Q12H Patient Comments: take 1 tablet by mouth twice a day until finished Rx Instructions: FILLED 12/07 citalopram [Celexa] 10 mg tablet 10 mg PO DAILY cyanocobalamin (vitamin B-12) 1,000 mcg tablet 1,000 mcg PO DAILY magnesium oxide 420 mg tablet 420 mg PO BID Primary Care Provider: Mikey Castaneda Chi Referrals: Mikey Castaneda Chi, MD [Primary Care Provider] - Disposition Disposition: Psychiatric Hospital or Unit
--- NOTE | 2022-12-11 17:21 | EKG12_ITS ---
Test Reason : PSYCH CLEARANCE Blood Pressure : / mmHG Vent. Rate : 079 BPM Atrial Rate : 000 BPM P-R Int : 000 ms QRS Dur : 088 ms QT Int : 352 ms P-R-T Axes : 000 058 059 degrees QTc Int : 403 ms Atrial fibrillation Abnormal ECG Confirmed by NAYELY MARTINES MD ([id number]), marketing editor ULI CALLES ([id number]) on 12/15/2022 1:57:12 PM Referred By: BB Confirmed By:NAYELY MARTINES MD
[2022-12-11 17:53] LABS: Bacteria 0 SEEN /hpf (None Seen); Mucous, Urine 0 SEEN /hpf (<or=2+); Red Blood Cells-Urine 0 SEEN /hpf (0-5); Squamous Epithelial Cells - UA 0 SEEN /hpf (0-5)
[2022-12-11 17:54] LABS: Absolute Lymphocyte Count 1.77 X10^3/uL (0.83-4.51); Absolute Neutrophil Count 5.4 X10^3/uL (2.0-7.7); Basophil# 0.06 X10^3/uL; Basophil% 0.8 % (0-1); Eosinophil# 0.15 X10^3/uL; Eosinophils% 1.9 % (0-5); Hematocrit 42.3 % (40-54); Lymphocyte # 1.77 X10^3/ul (0.83-4.51); Lymphocyte % 22.1 % (19-41); Mean Corp Hgb Conc 28.4 g/dL (32-36); Mean Corpuscular Hgb 27.5 pg (27.0-32.0); Mean Corpuscular Volume 96.8 fL (80-94); Mean Platelet Vol. 10.5 fl (6.2-12.0); Monocyte# 0.62 X10^3/uL; Monocyte% 7.8 % (0-10); NRBC Flagged by Analyzer 0 % (0-5); Neutrophil # 5.37 X10^3/uL (2.7-7.7); Platelet Count 165 K/mm3 (150-450); RBC Distribution Width SD 61.4 fl (35.1-43.9); Red Blood Count 4.37 M/mm3 (4.6-6.2)
[2022-12-11 17:56] LABS: Color, Urine Yellow (Yellow); Glucose, Dipstick Normal (Normal); Ketone-Dipstick Negative (Negative); Leukocyte Esterase-Dipstick 25 /ul (Negative); Nitrite-Dipstick Negative (Negative); Occult Blood-Urine 10 /ul (Negative); Protein-Dipstick 15 mg/dl (Negative); Urine Bilirubin Dipstick Negative (Negative); Urine Clarity Clear (Clear); Urine Urobilinogen Normal (Normal)
[2022-12-11 18:06] LABS: Hyaline Cast 0-5 SEEN /lpf (0-5); White Blood Cells 0-5 SEEN /hpf (0-5)
[2022-12-11 18:07] LABS: Alcohol, Blood (Medical)-Serum < 3.0 mg/dL
--- NOTE | 2022-12-11 18:10 | RAD_ITS ---
STUDY: X-RAY CHEST REASON FOR EXAM: Male, 82 years old. medical clearance TECHNIQUE: AP portable COMPARISON: October 30, 2022 FINDINGS: Diffuse interstitial and emphysematous changes are seen. There is asymmetric interstitial thickening in the lower lobes bilaterally.. There is calcific pleural plaquing along both hemidiaphragms and blunting of costophrenic angles raising question of chronic asbestos exposure. Normal size heart. Tiny right hilar calcified nodes. Normal visualized pulmonary arteries. Tortuous mildly calcified aortic arch and descending thoracic aorta. Normal visualized thoracic spine. Normal visualized ribs, clavicles, and shoulders. There is no demonstrated abnormality of the visualized soft tissue structures of the upper abdomen. RAD/Chest 1 View (Portable) IMPRESSION: COPD and findings which may be consistent with chronic asbestos exposure. No acute cardiopulmonary pathology. Electronically Signed: Efra Cho MD at 19:04 EDT ,
[2022-12-11 18:17] LABS: Amphetamine Urine VISTA NEGATIVE (<1000 ng/mL); Barbiturate Urine VISTA NEGATIVE (< 200 ng/mL); Benzodiazepine Urine VISTA NEGATIVE (< 200 ng/mL); Cocaine Urine VISTA NEGATIVE (< 300 ng/mL); Ecstacy Urine VISTA NEGATIVE (< 500 ng/mL); Methadone Urine VISTA NEGATIVE (< 300 ng/mL); PCP Urine VISTA NEGATIVE (< 25 ng/mL); THC Urine VISTA NEGATIVE (< 50 ng/mL); Vista UDS pH Range 6
[2022-12-11 18:24] LABS: ALB/GLOB Ratio 0.7 RATIO (0.9-2.4); AST(SGOT) 12 U/L (15-37); Alanine Aminotransfer ALT/SGPT 11 U/L (16-61); Albumin, Serum 2.9 g/dL (3.2-5.0); Alkaline Phosphatase 71 U/L (45-117); Anion Gap -1 (5-15); BUN 24 mg/dL (7-18); BUN/Creat Ratio 22.4 RATIO (10-20); Calcium,Total 9.6 mg/dL (8.5-10.1); Chloride 96 mmol/L (98-107); Creatinine, Serum 1.07 mg/dL (0.70-1.30); EST Glomerular Filtration Rate 70 mL/min (>60); Est Glom Filt Rate - Afr Amer 85 mL/min (>60); Estimated Creatinine Clearance 46.94 ml/min; Globulin 4.4 g/dL (2.2-4.2); Glucose 96 mg/dL (74-106); Potassium 5.2 mmol/L (3.5-5.1); Protein, Total 7.3 g/dL (6.4-8.2); Sodium Level 136 mmol/L (136-145)
[2022-12-11 19:37] VITALS: PULSE 64; RESP 20
[2022-12-11] MEDS: Albuterol 2.5 MG/3 ML VIAL.NEB. INHALATION (19:37)
[2022-12-11 19:47] VITALS: BP 93/52; PULSE 56; RESP 18; O2SAT 88
--- NOTE | 2022-12-11 21:19 | ED.RN ---
CHART HAS BEEN FAXED TO CRISIS. HIV COUNSELOR IN [facility] DOING OTHER ASSESSMENTS WILL BE IN
[2022-12-11 22:00] VITALS: RESP 16
[2022-12-11 23:47] VITALS: PULSE 78; RESP 18; O2SAT 90
[2022-12-12] VITALS (19 sets, daily range): BP systolic 104–180; BP diastolic 50–91; PULSE 83–109; RESP 12–24; TEMP 36.3–36.4; O2SAT 88–99; BMI 21.4
--- NOTE | 2022-12-12 01:06 | ED.RN ---
JAS WITH [facility] HERE TO EVALUATE
[2022-12-12] MEDS: Albuterol 2.5 MG/3 ML VIAL.NEB. INHALATION (01:09)
--- NOTE | 2022-12-12 01:22 | CPS ---
[0109] Pt. received another x1 Albuterol in ER. Pt.'s HR = 20, RR = 20 with diminished breath sounds through out. After pt. finished breathing tx., he refused post-assessment.
--- NOTE | 2022-12-12 01:33 | ED.RN ---
CRISIS IS GOING TO PLACE
[2022-12-12] MEDS: Ziprasidone IM 20 MG/ML VIAL IM (02:06)
--- NOTE | 2022-12-12 02:07 | ED.RN ---
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 PT CONFUSED, CONTINUOUSLY AGITATED WITH STAFF, ATTEMPTED TO REDIRECT, UNSUCCESSFUL. ORDER FOR DONOVAN OBTAINED FROM DR ESPINOZA, ADMINISTERED WITHOUT DIFFICULTY. PT STATES JUST KILL ME AND GET IT OVER WITH.
[2022-12-12] MEDS: Ciprofloxacin 250 MG Tablet PO (02:15)
--- NOTE | 2022-12-12 09:29 | NURSING ---
FAXED PINK SLIP, VITAL SIGNS (WITH O2), AND MED LIST TO CRISIS
[2022-12-12] MEDS: Ipratropium/Albuterol Sulfate 3 ML AMPUL.NEB INHALATION ×2 (10:08→23:04)
--- NOTE | 2022-12-12 10:48 | CM.ED ---
Social Work SW reviewed patient's chart and discussed concerns regarding patient's medical needs with patient's care team. SW contacted [facility] Crisis to review progress towards placement. SW spoke with Alexa and Jennyfer regarding patient's referrals. Patient was declined by [facility] and is on a wait list for [facility] as they have no beds available currently. Patient's referral is being sent to [facility] to review. SW encouraged a referral to [facility] as they have a skilled nursing unit for inpatient en psych. Jennyfer to review with supervisor data processing and will also send referral to [facility] if approved. Plan: wait list at [facility], referral pending at [facility], exploring referral to [facility] Nikky Sawant MSW, SONA
--- NOTE | 2022-12-12 12:48 | CM.ED ---
Social Work SW contacted by Graciela with [facility] with update regarding referrals. Graciela voiced concerns regarding discrepancies between documents they have received explaining some documents note the patient is on room air, while other documents state he is using oxygen. Graciela reports the discrepancies have negatively impacted referrals for psych placement. Graciela further reports the patient has a referral pending with [facility] and was unable to send referral to [facility] as they are requesting denial from [place] hospital [facility] due to patient's insurance. 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 Graciela explained the patient lives with his adult son and they have frequent disagreements regarding patient's hallucinations being real or not real. Patient also has a history of not being compliant with wearing his oxygen. Graciela also reports the patient was a registered sex offender in [place] and moved to [place] to be with family when he was released from assisted in 2020. SONG then contacted by Jennyfer with [facility] Crisis with an update. Patient is on wait list at [facility] as they will not have available beds until tomorrow or Monday. Referral packet was sent to [facility] as well as a follow up call. Acceptance or denial is needed from the [place] before [facility] will review referral. Care team updated. Plan: wait list at [facility] and [facility], referral pending with [place] SONA Clarke
--- NOTE | 2022-12-12 14:04 | CM.ED ---
Addendum entered by Nikky Sawant 12/12/22 18:51: Patient declined by [facility] due to lack of discharge plan as patient did not have HCPOA nor a secondary insurance to cover [facility] placement explaining patient's son reports patient is not able to return to patient's son's home at d/c. SW updated [facility] on patient's current status, [facility] can review for placement once patient is medically cleared if patient completes HCPOA documents or applies for Medicaid to assist with [facility] placement. SW contacted [facility] Crisis to provide update regarding patient being admitted to [facility]. [facility] Crisis reports they can reassess the patient once he is medically cleared and will update [facility] as he was on their wait list. Plan: patient to be reassessed for psych placement once he is medically cleared SONA Clarke Original Note: Social Work SW contacted by Annemarie addiction social worker with [facility]. SONG provided informed requested by Annemarie regarding patient. Annemarie requesting H&P to review and plans to contact patient's son with additional questions. SONG faxed H&P to [facility]. SONA Clarke
--- NOTE | 2022-12-12 14:54 | CM.ED ---
Social Work SONG received VM from Christin with [facility] requesting clinical documents be faxed to [phone] and call back to [phone]. SONG faxed documents and attempted to call back, ISRAEL left for Christin. Nikky VILLANUEVA, SONA
--- NOTE | 2022-12-12 17:20 | ED.RN ---
AT THIS TIME PT VERY DIFFICULT TO AROUSE FOR DINNER. PT MOVED AROUND IN THE BED BY STAFF AND THIS RN NOTED RIGHT LOWER FACIAL DROOP WITH GARBLED SPEECH. THIS RN MAKES DR. JORGE AWARE AND ASKS FOR A VISUAL ASSESSMENT AT THIS TIME. DR. JORGE COMES TO BEDSIDE AND ASSESSES PT. PT DID NOT WITHDRAW FROM PAIN ON EITHER FOOT. PT STILL DIFFICULT TO AROUSE. PT'S MENTATION NOTED TO BE DECREASED FROM EARLIER THIS AFTERNOON. DR. JORGE ADDS IN BLOOD WORK AND IMAGING. PT GIVEN A SIP OF WATER AND BEDSIDE SWALLOW PERFORMED WELL. WILL CONTINUE TO MONITOR.
--- NOTE | 2022-12-12 17:55 | RAD_ITS ---
STUDY: X-RAY CHEST REASON FOR EXAM: Male, 82 years old. Sob TECHNIQUE: Single AP portable view of the chest. COMPARISON: December 11, 2022 chest x-ray FINDINGS: Lungs are hyperinflated. There is widening of the hemidiaphragm. Again noted is a pattern of emphysematous change. There is a skin fold projected over the left upper lobe. There is a hazy focus of rounded density in the right apex which could potentially represent a nodule measuring 1.2 cm. There is a small calcified granuloma within the left apex. There is no demonstrated pleural abnormality. Normal size heart. Normal mediastinum and alexandro. Normal visualized pulmonary arteries. There is atherosclerotic calcification of the aortic arch with tortuosity. Normal visualized thoracic spine. Normal visualized ribs, clavicles, and shoulders. The partially visualized aortic stent in the abdomen. RAD/Chest 1 View (Portable) IMPRESSION: Emphysema chronic obstructive pulmonary disease possible nodule right upper lobe measuring 1.2 cm, versus summation artifact. Recommend consideration for follow-up CT scan of the chest when appropriate. Electronically Signed: Jory Manzo MD at 18:25 EDT Reading Location ID and State: [facility] / [place] Tel , Service support ,
[2022-12-12 18:07] LABS: Absolute Lymphocyte Count 3.23 X10^3/uL (0.83-4.51); Absolute Neutrophil Count 6.1 X10^3/uL (2.0-7.7); Basophil# 0.04 X10^3/uL; Basophil% 0.4 % (0-1); Eosinophil# 0.12 X10^3/uL; Eosinophils% 1.2 % (0-5); Hematocrit 42.6 % (40-54); Hemoglobin 11.9 g/dL (13.0-16.5); Lymphocyte # 3.23 X10^3/ul (0.83-4.51); Lymphocyte % 31.2 % (19-41); Mean Corp Hgb Conc 27.9 g/dL (32-36); Mean Corpuscular Hgb 27.5 pg (27.0-32.0); Mean Corpuscular Volume 98.4 fL (80-94); Mean Platelet Vol. 10.9 fl (6.2-12.0); Monocyte# 0.78 X10^3/uL; Monocyte% 7.5 % (0-10); NRBC Flagged by Analyzer 0 % (0-5); Neutrophil # 6.14 X10^3/uL (2.7-7.7); Neutrophil % 59.4 % (47-70); Platelet Count 165 K/mm3 (150-450); RBC Distribution Width CV 17.2 % (11.6-14.6); RBC Distribution Width SD 62.7 fl (35.1-43.9); Red Blood Count 4.33 M/mm3 (4.6-6.2); White Blood Count 10.3 K/mm3 (4.4-11.0)
[2022-12-12 18:25] LABS: Anion Gap -1 (5-15); BUN 22 mg/dL (7-18); BUN/Creat Ratio 17.7 RATIO (10-20); Calcium,Total 9.9 mg/dL (8.5-10.1); Chloride 98 mmol/L (98-107); Creatinine, Serum 1.24 mg/dL (0.70-1.30); EST Glomerular Filtration Rate 59 mL/min (>60); Est Glom Filt Rate - Afr Amer 72 mL/min (>60); Glucose 112 mg/dL (74-106); Sodium Level 141 mmol/L (136-145)
--- NOTE | 2022-12-12 18:49 | ED.RN ---
PT BECOMES AGITATED WITH STAFF FOR ATTEMPTING TO HELP PLACE O2 NASAL CANNULA. PT ATTEMPTS TO PUNCH AND KICK STAFF AND IS VERBALLY AGRESSIVE. PT ATTEMPTS TO SPIT ON STAFF. PT PLACED IN 4 POINT LEATHER RESTRAINTS AT THIS TIME. ORDER FOR IM HALDOL OBTAINED.
[2022-12-12] MEDS: Haloperidol Lactate 5 MG/ML Vial 2 MG IM (19:02)
--- NOTE | 2022-12-12 20:14 | PCM.HP.STD ---
HPI - General General Date of Admission: 12/12/22 Date of Service: 12/12/22 Chief Complaint: Acute on chronic combined respiratory failure HPI Narrative MOISÉS HILL, is a 82 M who presents to the emergency room at [facility] after he had called the squad and the police department threatening to take an overdose of pills at home. Patient has a history of dementia with behavioral disturbances and lives with his son. Patient was brought in to the emergency room at [facility] and evaluated, it was planned that the patient would go to a [facility] facility, he had been in the emergency room for more than 24 hours awaiting placement, I was notified by the emergency room physician this afternoon that the patient's mental status had changed and he had become less agitated, and arterial blood gas was performed which showed the patient to be hypercapnic and he was placed on BiPAP and request was made to the hospitalist service to admit the patient for further treatment. I talked at length with the patient's niece and the patient's son, they both confirmed that the patient would not want to be intubated and would not want to be resuscitated if his heart would stop. Patient does not have a POA designated. The son and the patient's niece make medical decisions for him. Lab obtained in the ER showed a normal white blood cell count, hemoglobin was slightly low at 11.9, chemistry profile was remarkable for a BUN of 22. ABG was performed on 4 L via nasal cannula, pH 7.23, PCO2 112.5, PO2 58.7. Chest x-ray showed COPD and findings which may be consistent with chronic asbestosis. Patient would not keep his AVAPS on in the ER, sedation had to be administered, again patient is a DO NOT INTUBATE DO NOT RESUSCITATE. Patient will be admitted to ICU, pulmonary medicine will be consulted, he was placed on aerosol treatments and IV Solu-Medrol, prognosis overall is poor given the patient's dementia and chronic COPD. [facility] Medical History Anemia Chronic anticoagulation Endotracheally intubated History of atrial fibrillation History of COPD History of GI bleed Hypercapnic respiratory failure Home Medications albuterol sulfate 90 mcg/actuation aerosol inhaler 1 puff inhalation Q6H Breathing 09/26/22 [History Last Taken Unknown] apixaban 2.5 mg PO/SL BID blood thinner 09/26/22 [History Last Taken 12/11/22] finasteride 5 mg tablet 5 mg PO DAILY prosate 09/26/22 [History Last Taken 12/10/22] pantoprazole 40 mg tablet,delayed release (Protonix) 40 mg PO DAILY gerd 09/26/22 [History Last Taken 12/11/22] tamsulosin 0.4 mg capsule 0.4 mg PO DAILY prostate 09/26/22 [History Last Taken 12/10/22] metoprolol succinate 100 mg tablet,extended release 24 hr 100 mg PO DAILY 30 days #30 tabs 10/17/22 [Rx Last Taken 12/10/22] metoprolol tartrate 75 mg tablet 150 mg (2 x 75 mg) PO BID 30 days #120 tabs 10/17/22 [Rx Last Taken 12/11/22] aripiprazole 5 mg tablet 5 mg PO DAILY 12/11/22 [History Last Taken 12/11/22] ciprofloxacin HCl 250 mg tablet 250 mg PO Q12H 12/11/22 [History Last Taken 12/11/22] citalopram 10 mg tablet (Celexa) 10 mg PO DAILY 12/11/22 [History Last Taken Unknown] cyanocobalamin (vitamin B-12) 1,000 mcg tablet 1,000 mcg PO DAILY 12/11/22 [History Last Taken Unknown] digoxin 125 mcg (0.125 mg) tablet 0.125 mg PO .QOD 12/11/22 [History Last Taken 12/10/22] magnesium oxide 420 mg tablet 420 mg PO BID 12/11/22 [History Last Taken Unknown] sacubitril 24 mg-valsartan 26 mg tablet (Entresto) 1 tab PO DAILY 12/11/22 [History Last Taken 12/11/22] Allergy/AdvReac Type Severity Reaction Status Date / Time Penicillins Allergy Severe Hives Verified 12/11/22 16:56 Family History (Updated 09/25/22 @ 22:[address] Baldev Perez MD) Other S/P colon polypectomy Social History Smoking Status: Former smoker ROS ROS Narrative Review of systems is unobtainable due to patient's dementia and altered mental status, he is alert and talks to this examiner but he is not making sense Vital Signs Vital Signs Vital Signs: 12/11/22 22:00 12/11/22 23:47 12/12/22 02:00 Temperature Temperature Source Pulse Rate 78 Respiratory Rate 16 18 16 Respiratory Pattern Blood Pressure Blood Pressure Mean Pulse Ox 90 Oxygen Delivery Method Nasal Cannula Oxygen Flow Rate (L/min) 4 Fraction of Inspired Oxygen (FIO2) 12/12/22 02:46 12/12/22 07:06 12/12/22 10:09 Temperature Temperature Source Pulse Rate 97 Respiratory Rate 16 18 18 Respiratory Pattern Normal Blood Pressure Blood Pressure Mean Pulse Ox Oxygen Delivery Method Oxygen Flow Rate (L/min) Fraction of Inspired Oxygen (FIO2) 12/12/22 11:00 12/12/22 15:00 12/12/22 18:05 Temperature Temperature Source Pulse Rate 83 92 Respiratory Rate 22 H 18 21 H Respiratory Pattern Blood Pressure 143/50 H Blood Pressure Mean 81 Pulse Ox 97 Oxygen Delivery Method Oxygen Flow Rate (L/min) Fraction of Inspired Oxygen (FIO2) 50 12/12/22 18:14 12/12/22 17:49 12/12/22 17:50 Temperature 97.4 F L Temperature Source Axillary Pulse Rate 109 H 103 H 94 Respiratory Rate 20 H 23 H 23 H Respiratory Pattern Blood Pressure 104/71 Blood Pressure Mean 82 Pulse Ox 98 88 88 Oxygen Delivery Method Bi-pap Oxygen Flow Rate (L/min) Fraction of Inspired Oxygen (FIO2) 12/12/22 18:00 12/12/22 18:10 Temperature Temperature Source Pulse Rate 104 H 99 Respiratory Rate 20 H 22 H Respiratory Pattern Blood Pressure Blood Pressure Mean Pulse Ox 97 99 Oxygen Delivery Method Oxygen Flow Rate (L/min) Fraction of Inspired Oxygen (FIO2) Weight Weight: 61.292 kg Body Mass Index (BMI) 17.8 Physical Exam Const alert and no apparent distress Constitutional Narrative: Patient is agitated at times, he is alert and answers questions but they are inappropriate answers. General Appearance: cooperative, well kempt and well developed Orientation / Consciousness: awake HEENT normocephalic, head/scalp atraumatic, hearing grossly normal bilaterally and moist oral mucous membranes Eyes PERRL, EOMs intact bilaterally and conjunctivae normal Neck supple, no JVD, thyroid normal and no carotid bruits General: trachea midline Resp normal respiratory effort, no retractions, no use of accessory muscles and clear to auscultation bilaterally Auscultation: Negative for rales, rhonchi or wheezes Cardio S1 normal heart sound, S2 normal heart sound, no murmurs, no rub and no gallops Cardio Narrative: Heart rate and rhythm is irregular GI normal to inspection, nondistended, normoactive bowel sounds, soft to palpation, non-tender and non-distended Extremity no clubbing, cyanosis or edema Skin no rashes or lesions noted General Skin Exam: no breakdown Neuro CN's II-XII intact bilaterally, moves all extremities, no focal motor deficits and no sensory deficits noted Neuro Narrative: Patient is alert, he is confused, he is agitated at times Sensorium / Orientation: awake and alert Speech: speech normal Psych Psych Narrative: Patient is confused Results Lab / Micro Data 12/12/22 17:46 12/12/22 17:46 Labs: Laboratory Results - last 24 hr 12/12/22 17:46: WBC 10.3, RBC 4.33 L, Hgb 11.9 L, Hct 42.6, MCV 98.4 H, MCH 27.5, MCHC 27.9 L, RDW Std Deviation 62.7 H, RDW Coeff of Cory 17.2 H, Plt Count 165, MPV 10.9, Immature Gran % (Auto) 0.300, Neut % (Auto) 59.4, Lymph % (Auto) 31.2, Griggs % (Auto) 7.5, Eos % (Auto) 1.2, Baso % (Auto) 0.4, Absolute Neuts (auto) 6.1, Absolute Lymphs (auto) 3.23, Nucleated RBC % 0, Sodium 141, Potassium 5.0, Chloride 98, Carbon Dioxide 44.0 H, Anion Gap -1 L, BUN 22 H, Creatinine 1.24, Estim Creat Clear Calc 40.50, Est GFR (MDRD) Af Amer 72, Est GFR (MDRD) Non-Af 59 L, BUN/Creatinine Ratio 17.7, Glucose 112 H, Calcium 9.9 Micro: Microbiology 12/11/22 17:50 Nasal Secretion SARS-CoV-2 Antigen (Rapid) - Final Rhythm Strip Rhythm Strip: A-fib Rate: 80 Ectopy: None Radiology Impression Chest X-Ray 12/12/22 17:55 IMPRESSION: Emphysema chronic obstructive pulmonary disease possible nodule right upper lobe measuring 1.2 cm, versus summation artifact. Recommend consideration for follow-up CT scan of the chest when appropriate. Electronically Signed: Jory Manzo MD at 18:25 EDT , Assessment & Plan Assessment/Plan (1) CO2 retention: PLAN: Plan 1. Acute on chronic combined respiratory failure-patient will be admitted to ICU, we will attempt to keep the patient on AVAPS, I have placed the patient on aerosol treatments and IV Solu-Medrol, he will be seen in consultation by pulmonary medicine #2 exacerbation of COPD-patient will be placed on IV Solu-Medrol and receive [id number] aerosol treatments, he will be seen by pulmonary medicine #3 dementia with behavioral disturbances-patient will ultimately have to be placed in a psych facility, this will be problematic due to the patient's severe COPD #4 chronic atrial fibrillation-patient is on Eliquis and rate limiting medication, these will be continued here, monitor, evaluate, assess, treat #5 suicidal ideation-again patient will need to be placed in a [facility] facility #6 recent urinary tract infections-it appears that the patient was treated recently for UTI, according to documentation in the ER he was on Cipro 250 every 12 hours-this was filled 12/07/2022, patient's urinalysis done in the emergency room shows no evidence of a urinary tract infection so I will stop this medication. #7 mild pulmonary hypertension-does not appear patient is on any diuretics at this time, according to his last echocardiogram, his pulmonary hypertension was mild and I do not feel he needs to be placed on any medication such as a diuretic Patient appears to be on Entresto, the reason why he is on Entresto is unknown to me Total clinical time spent by myself addressing the patient's medical issues, reviewing all of his data, and collaborating with patient's care team: 55 minutes Charges/Coding Visit Charges Inpatient E&M: 00797 Init Hosp L2
[2022-12-12 21:13] LABS: Allen Test POS; Blood Gas Specimen Type ART; O2 Delivery Device Nasal Can; SITE L RADIAL; Time Given 1745; pH 7.24 (7.35-7.45)
[2022-12-12 21:14] LABS: Base Excess 21 mmol/L (-2 to +2); Bicarbonate 48.1 mmol/L (22-26); PO2 59 mmHG (75-100); SO2 82 % (95-99); Total Carbon Dioxide > 50 mmol/L; pCO2 112.5 mmHg (35-45)
[2022-12-12] MEDS: Haloperidol Lactate 5 MG/ML Vial 2 MG IV (22:17)
[2022-12-12 23:24] LABS: Allen Test Positive; Base Excess 17 mmol/L (-2 to +2); Bicarbonate 44.6 mmol/L (22-26); Blood Gas Specimen Type ART; O2 Delivery Device BiPAP; PEEP 8; PO2 69 mmHG (75-100); RR 12; SITE R Brach; SO2 88 % (95-99); Total Carbon Dioxide 48 mmol/L; pCO2 100.1 mmHg (35-45); pH 7.26 (7.35-7.45)
[2022-12-13] VITALS (27 sets, daily range): BP systolic 97–139; BP diastolic 52–85; PULSE 72–139; RESP 14–23; TEMP 36.2–36.4; O2SAT 94–100; BMI 17.4
--- NOTE | 2022-12-13 00:09 | CPS ---
Critical ABG values, Dr. Ana fowler.
[2022-12-13] MEDS: Ipratropium/Albuterol Sulfate 3 ML AMPUL.NEB INHALATION ×5 (02:12→22:57)
[2022-12-13 04:29] LABS: Absolute Lymphocyte Count 0.84 X10^3/uL (0.83-4.51); Absolute Neutrophil Count 12.5 X10^3/uL (2.0-7.7); Basophil# 0.03 X10^3/uL; Basophil% 0.2 % (0-1); Hematocrit 40.2 % (40-54); Hemoglobin 11.3 g/dL (13.0-16.5); Lymphocyte # 0.84 X10^3/ul (0.83-4.51); Lymphocyte % 6.1 % (19-41); Mean Corp Hgb Conc 28.1 g/dL (32-36); Mean Corpuscular Hgb 27.6 pg (27.0-32.0); Mean Platelet Vol. 10.6 fl (6.2-12.0); Monocyte% 1.5 % (0-10); NRBC Flagged by Analyzer 0 % (0-5); Neutrophil # 12.53 X10^3/uL (2.7-7.7); Neutrophil % 91.5 % (47-70); Platelet Count 149 K/mm3 (150-450); RBC Distribution Width CV 17.3 % (11.6-14.6); RBC Distribution Width SD 62.3 fl (35.1-43.9); White Blood Count 13.7 K/mm3 (4.4-11.0)
[2022-12-13 04:44] LABS: Anion Gap -1 (5-15); BUN 23 mg/dL (7-18); BUN/Creat Ratio 23.2 RATIO (10-20); Calcium,Total 9.5 mg/dL (8.5-10.1); Chloride 101 mmol/L (98-107); Creatinine, Serum 0.99 mg/dL (0.70-1.30); EST Glomerular Filtration Rate 77 mL/min (>60); Est Glom Filt Rate - Afr Amer 93 mL/min (>60); Estimated Creatinine Clearance 60.59 ml/min; Glucose 112 mg/dL (74-106); Sodium Level 142 mmol/L (136-145)
--- NOTE | 2022-12-13 07:37 | PCM.PN.HOSP ---
Reason for Visit Reason for Visit: Suicidal ideation Subjective Subjective Mr. Zhang is an 82-year-old white male who presented to the emergency department on 12/11/2022 with suicidal ideation. He would not go into detail with this regarding specifics but did report that he was extremely upset with his son and was having thoughts of killing himself. Upon presentation he also complained of dysuria and urinary frequency and reported he had recently been placed on antibiotic. Upon review of chart it does appear that the patient was recently diagnosed with a pseudomonal UTI and placed on ciprofloxacin 250 mg p.o. twice daily culture resulted positive on 12/07/2022. He was waiting in the emergency department to be evaluated by crisis and the plan was to admit him to a psychiatric facility for suicidal ideation. Unfortunately while he was in the emergency department he had increased somnolence and an ABG was performed that demonstrated CO2 retention having a pH of 7.24 and a PCO2 of 112. He was placed on BiPAP in the emergency department and then admitted to the ICU. CBC on presentation was overall unremarkable. His chemistry panel shows chronic serum bicarb elevation consistent with chronic hypercapnia and I would suspect that his baseline PCO2 is between 50 and 60. There was a an extensive discussion yesterday with the patient's niece and son and they both confirm that the patient would not want to be intubated so DNR CCA with no intubation was placed the patient was resistant to wearing BiPAP in the emergency department and sedation had to be administered in order for him to maintain BiPAP placement. It does appear the patient is to wear chronic oxygen with 3 L at baseline. Patient agitated in four-point restraints at the time my evaluation. Per discussion with nursing the [facility] has contacted us and are considering transfer. Nursing did discuss with critical care pulmonary medicine and they felt the patient was stable for discharge to psych facility and that we should have crisis evaluate the patient. The patient will need BiPAP nocturnally and with naps while at the facility and may need supplemental oxygen during the day. Patient argumentative throughout my history taking and when I tried to discuss with him as to why he got admitted to the hospital and not transferred to a psych facility he started arguing with me further and told me to get out of his fucking room. Objective Data Objective Data Vital Signs: Vital Signs Temp Pulse Resp BP Pulse Ox O2 Del Method O2 Flow Rate 97.4 F L 91 18 97/58 L 99 Bi-pap 6 12/13/22 00:00 12/13/22 07:23 12/13/22 07:23 12/13/22 07:00 12/13/22 07:23 12/13/22 07:00 12/12/22 21:15 FiO2 30 12/13/22 07:23 Oxygen Flow Rate (L/min) 6 Oxygen Delivery Method Bi-pap Weight: 59.6 kg Body Mass Index (BMI) 17.4 Lab / Micro Data 12/13/22 04:15 12/13/22 04:15 Labs: Laboratory Results - last 24 hr 12/12/22 17:46: WBC 10.3, RBC 4.33 L, Hgb 11.9 L, Hct 42.6, MCV 98.4 H, MCH 27.5, MCHC 27.9 L, RDW Std Deviation 62.7 H, RDW Coeff of Cory 17.2 H, Plt Count 165, MPV 10.9, Immature Gran % (Auto) 0.300, Neut % (Auto) 59.4, Lymph % (Auto) 31.2, Hart % (Auto) 7.5, Eos % (Auto) 1.2, Baso % (Auto) 0.4, Absolute Neuts (auto) 6.1, Absolute Lymphs (auto) 3.23, Nucleated RBC % 0, Sodium 141, Potassium 5.0, Chloride 98, Carbon Dioxide 44.0 H, Anion Gap -1 L, BUN 22 H, Creatinine 1.24, Estim Creat Clear Calc 40.50, Est GFR (MDRD) Af Amer 72, Est GFR (MDRD) Non-Af 59 L, BUN/Creatinine Ratio 17.7, Glucose 112 H, Calcium 9.9 12/13/22 04:15: WBC 13.7 H, RBC 4.10 L, Hgb 11.3 L, Hct 40.2, MCV 98.0 H, MCH 27.6, MCHC 28.1 L, RDW Std Deviation 62.3 H, RDW Coeff of Cory 17.3 H, Plt Count 149 L, MPV 10.6, Immature Gran % (Auto) 0.700, Neut % (Auto) 91.5 H, Lymph % (Auto) 6.1 L, Hart % (Auto) 1.5, Eos % (Auto) 0.0, Baso % (Auto) 0.2, Absolute Neuts (auto) 12.5 H, Absolute Lymphs (auto) 0.84, Nucleated RBC % 0, Sodium 142, Potassium 5.0, Chloride 101, Carbon Dioxide 42.0 H, Anion Gap -1 L, BUN 23 H, Creatinine 0.99, Estim Creat Clear Calc 60.59, Est GFR (MDRD) Af Amer 93, Est GFR (MDRD) Non-Af 77, BUN/Creatinine Ratio 23.2 H, Glucose 112 H, Calcium 9.5 Micro: Microbiology 12/11/22 17:50 Nasal Secretion SARS-CoV-2 Antigen (Rapid) - Final ABG Data ABG results: ABG 12/12/22 12/12/22 17:45 23:20 Specimen Type ART ART Sample Site L RADIAL R Brach pH 7.24 L 7.26 L Bicarbonate Actual 48.1 H 44.6 H Total CO2 > 50 48 Base Excess 21 H 17 H O2 Saturation 82 L 88 L O2 % 40.0 ABG pCO2 112.5 H* 100.1 H* ABG pO2 59 L 69 L Vicente Test POS Positive Respiration Rate 12 O2 Delivery Device Nasal Can BiPAP Liter Flow 5.0 Tidal Volume 500.0 POC PEEP 8 Crit Call To/Read Back Yes Yes Blood Gas Notified Whom ED Blood Gas Notified Time 1745 Radiography Diagnostic Testing: Radiology Impression Chest X-Ray 12/12/22 17:55 IMPRESSION: Emphysema chronic obstructive pulmonary disease possible nodule right upper lobe measuring 1.2 cm, versus summation artifact. Recommend consideration for follow-up CT scan of the chest when appropriate. Electronically Signed: Jory Manzo MD at 18:25 EDT , Rhythm Strip Rhythm Strip: A-fib Rate: 80 Ectopy: None Physical Exam Const alert and no apparent distress Constitutional Narrative: Cachectic appearing, white male, sitting up in bed, sitter at bedside, patient in four-point restraints, argumentative and agitated HEENT head/scalp atraumatic HEENT Narrative: Dentition is poor, Mallampati is 1-2 Head and Scalp: normocephalic Resp normal respiratory effort, no retractions and no use of accessory muscles Resp Narrative: Diffusely diminished Auscultation: Negative for rales, rhonchi or wheezes Cardio regular rate, regular rhythm, S1 normal heart sound, S2 normal heart sound, no murmurs, no rub, no gallops and no clicks GI normal to inspection, nondistended, normoactive bowel sounds, soft to palpation and non-tender Extremity no clubbing, cyanosis or edema Extremity Narrative: Pedal pulses are 2+ Neuro moves all extremities and no focal motor deficits Sensorium / Orientation: awake and alert Speech: speech normal Psych Psych Narrative: Agitated and argumentative Assessment & Plan Assessment/Plan (1) CO2 retention: (2) Acute on chronic respiratory failure with hypoxia and hypercapnia: (3) UTI (urinary tract infection): (4) Leukocytosis: (5) Thrombocytopenia: (6) Abnormal chest x-ray: PLAN: Plan Acute on chronic hypoxic and hypercapnic respiratory failure -Patient wears 3 L nasal cannula baseline -By the looks of his BMP he has a chronic serum bicarb elevation indicative of chronic CO2 retention and I suspect his baseline PCO2 is somewhere between 50 and 60 -Sounds like there are some issues with noncompliance at baseline -Chest x-ray shows emphysematous changes but no infiltrate -We will check respiratory viral panel -COVID was unremarkable -Continue BiPAP -Continue IV Solu-Medrol -Continue aerosol treatments -Pulmonary medicine is consulted Pseudomonas UTI -Patient was having dysuria and frequency as an outpatient and urine culture was ordered on 12/07/2022 -Culture shows Pseudomonas with chronic counts greater than 100,000 -Looks like he was on Cipro as an outpatient and only 250 mg twice daily -Start ciprofloxacin 400 mg IV twice daily for now and will transition back to oral Cipro at discharge -patient will need a total of 7 to 10 days of treatment Abnormal chest x-ray -Chest x-ray shows possible nodular finding in the right upper lobe that measures 1.2 cm versus summation artifact -Patient did have a CT of his chest for screening purposes with his history of tobacco abuse that showed only diffuse emphysematous changes throughout both lungs, bronchiectasis, small bilateral effusions and bilateral basilar atelectasis and recommended continued annual screening was reported at that time--> this image was was obtained on 11/30/2022 Thrombocytopenia -This is new today -Etiology is unclear -We will continue to monitor Leukocytosis -This again also is new today and left shift is present -We will restart ciprofloxacin for his UTI -May be reactive due to acute events -Check procalcitonin COPD -Patient with severe emphysematous changes on CT and x-ray -Does not appear to be on any therapy other than albuterol for his lung disease -Patient with chronic hypoxia and is on 3 L at baseline -Also shows signs of chronic CO2 retention -Would recommend outpatient follow-up with pulmonary medicine after discharge and PFTs History of coronary artery disease -Echo from 09/20/2022 shows an EF of 60% with mild to moderate tricuspid valve insufficiency -Continue home metoprolol -Continue home Entresto History of atrial fibrillation -Continue home beta-mariluz -Continue home apixaban -Continue home digoxin History of AAA -Previous endovascular repair next-continue outpatient follow-up and blood pressure control Suicidal ideation -Patient will need placement in psychiatric facility after medically stable for discharge -Once medically stable we will have crisis evaluate patient BPH -Continue home medications including Flomax and Proscar Depression/anxiety -Continue home aripiprazole -Continue home Celexa DVT prophylaxis -Patient on full anticoagulation with apixaban CODE STATUS -DNR CCA with no intubation as verified with patient's family including niece and son prior to admission by admitting physician Charges/Coding Visit Charges Inpatient E&M: 20954 Subs Hosp L2
[2022-12-13] MEDS: 0.9% Saline Lock 10 ML Syringe IV (08:21)
--- NOTE | 2022-12-13 08:33 | NURSING ---
Awakened pt for assessment, to draw blood, and medicate. Accessed R wrist IV to draw blood as pt shakes arms to try and stop action. States you mother fucker..fuck you..you hypocrite.. and multiple other obscenities. Explained situation, leading up to hospitalization, which pt seems aware of, and continues to state I'm here for the psycho place. This RN takes off mask as he states I have a problem madam can I tell you about it. Pt placed on nasal cannula in order to communicate more effectively. Pt repetitively saying I have a problem I can't get my words out and continues to repeat this phrase. I asked pt if he was hungry, to which he replied yes I'm hungry as hell.. but I won't eat anything you put in front of me.. because I want to . Now pt is laying in bed talking to God saying singing hill sow. Bilateral upper and lower ext restraints remain in place with sitter at bedside.
[2022-12-13] MEDS: Haloperidol Lactate 5 MG/ML Vial 2 MG IV (10:14)
[2022-12-13] MEDS: Ciprofloxacin 400 MG/200 ML BAG 200 MG IV ×2 (10:14→21:04)
[2022-12-13 10:36] LABS: Blood Gas Specimen Type VEN; O2 Delivery Device Cannula; VBG BASE EXCESS 12 mmol/L (-1.0-3.5); VBG Bicarbonate 40 mmol/L (22-26); VBG PO2 55 mmHg (25-40); VBG SO2 79 % (50-70); VBG TCO2 43 mmol/L (23-33); VBG pCO2 94.3 mmHg (41-51); VBG pH 7.23 (7.32-7.42)
--- NOTE | 2022-12-13 10:49 | NURSING ---
Untied pt's restraints in an attempt to provide incontinence care as pt has visibly soiled attends. Pt sits up and repositions self but will refuse to lay back and turn to change brief because we don't have his own personal incontinence briefs. Pt declined being changed and to have a male purewick placed. Continues to be belligerent and constantly mocking staff. Pt placed back in lying position and restraints tied.
--- NOTE | 2022-12-13 10:56 | EX.PCM.CONCC ---
Assessment & Plan Assessment/Plan (1) Acute on chronic respiratory failure with hypoxia and hypercapnia: PLAN: Plan Assessment Acute on chronic hypoxic and hypercapnic respiratory failure COPD exacerbation Dementia with behavioral disturbance Chronic A-fib Suicidal ideation Pseudomonas UTI Plan Patient required to be on AVAPS throughout the night. This morning he was refusing repeat ABG and a VBG was obtained which showed PCO2 around 80 which is close to his baseline from September at which his pH was 7.3 arterial. Continue Solu-Medrol and breathing treatments He will need to continue to use AVAPS at night While in the hospital and upon discharge given his recurrent exacerbations and hypercapnia Wean oxygen as tolerated Reviewed his chest x-ray no signs of pneumonia.Pro-Justin is less than 0.5 and white count is likely secondary to steroids. Abnormality seen in right upper lobe is most likely secondary to scarring as seen on CT scan around 2 weeks ago Continue ciprofloxacin for Pseudomonas UTI Bedside sitter Will need to be evaluated by crisis Poor prognosis given his comorbidities and recurrent admissions with COPD exacerbations and hypercapnia DVT prophylaxis patient is on [facility] PT OT. Social work is on board I spent 33 minutes of critical care time excluding the procedure time. I reviewed lab work, images, previous records and medication list. HPI Consult Data Date of Consult: 12/13/22 HPI Narrative Reason for Consultation: ICU care HPI Narrative: MOISÉS HILL, is a 82 M with past medical history of COPD, chronic hypoxic respiratory failure, A-fib, and dementia. Patient initially presented to the ER on December 11 due to agitation and suicidal ideation. Patient usually lives with his son. In the ED patient was agitated and required some sedation and he was then found to be altered. An ABG was done which showed hypercapnia and respiratory acidosis. He was admitted to the ICU on BiPAP. He is DNR/DNI per records Patient spent the night on AVAPS mode with improvement of his mental status. This morning he was refusing repeat ABG and a VBG was obtained which showed PCO2 around 80 which is close to his baseline from September at which his pH was 7.3 arterial. [facility] Medical History Anemia Chronic anticoagulation Endotracheally intubated History of atrial fibrillation History of COPD History of GI bleed Hypercapnic respiratory failure Home Medications albuterol sulfate 90 mcg/actuation aerosol inhaler 1 puff inhalation Q6H Breathing 09/26/22 [History Last Taken Unknown] apixaban 2.5 mg PO/SL BID blood thinner 09/26/22 [History Last Taken 12/11/22] finasteride 5 mg tablet 5 mg PO DAILY prosate 09/26/22 [History Last Taken 12/10/22] pantoprazole 40 mg tablet,delayed release (Protonix) 40 mg PO DAILY gerd 09/26/22 [History Last Taken 12/11/22] tamsulosin 0.4 mg capsule 0.4 mg PO DAILY prostate 09/26/22 [History Last Taken 12/10/22] metoprolol succinate 100 mg tablet,extended release 24 hr 100 mg PO DAILY 30 days #30 tabs 10/17/22 [Rx Last Taken 12/10/22] metoprolol tartrate 75 mg tablet 150 mg (2 x 75 mg) PO BID 30 days #120 tabs 10/17/22 [Rx Last Taken 12/11/22] aripiprazole 5 mg tablet 5 mg PO DAILY 12/11/22 [History Last Taken 12/11/22] ciprofloxacin HCl 250 mg tablet 250 mg PO Q12H 12/11/22 [History Last Taken 12/11/22] citalopram 10 mg tablet (Celexa) 10 mg PO DAILY 12/11/22 [History Last Taken Unknown] cyanocobalamin (vitamin B-12) 1,000 mcg tablet 1,000 mcg PO DAILY 12/11/22 [History Last Taken Unknown] digoxin 125 mcg (0.125 mg) tablet 0.125 mg PO .QOD 12/11/22 [History Last Taken 12/10/22] magnesium oxide 420 mg tablet 420 mg PO BID 12/11/22 [History Last Taken Unknown] sacubitril 24 mg-valsartan 26 mg tablet (Entresto) 1 tab PO DAILY 12/11/22 [History Last Taken 12/11/22] Allergy/AdvReac Type Severity Reaction Status Date / Time Penicillins Allergy Severe Hives Verified 12/11/22 16:56 Family History Other S/P colon polypectomy Social History Smoking Status: Former smoker ROS Review of Systems ROS Unobtainable: due to mental status Physical Exam Const alert and no apparent distress Constitutional Narrative: Patient is agitated at times, he is alert and answers questions but they are inappropriate answers. General Appearance: cooperative, well kempt and well developed Orientation / Consciousness: awake HEENT normocephalic, head/scalp atraumatic, hearing grossly normal bilaterally and moist oral mucous membranes Eyes PERRL, EOMs intact bilaterally and conjunctivae normal Neck supple, no JVD, thyroid normal and no carotid bruits General: trachea midline Resp normal respiratory effort, no retractions, no use of accessory muscles and clear to auscultation bilaterally Auscultation: Negative for rales, rhonchi or wheezes Cardio S1 normal heart sound, S2 normal heart sound, no murmurs, no rub and no gallops Cardio Narrative: Heart rate and rhythm is irregular GI normal to inspection, nondistended, normoactive bowel sounds, soft to palpation, non-tender and non-distended Extremity no clubbing, cyanosis or edema Skin no rashes or lesions noted General Skin Exam: no breakdown Neuro CN's II-XII intact bilaterally, moves all extremities, no focal motor deficits and no sensory deficits noted Neuro Narrative: Patient is alert, he is confused, he is agitated at times Sensorium / Orientation: awake and alert Speech: speech normal Psych Psych Narrative: Patient is confused Lab / Micro Data 12/13/22 04:15 12/13/22 04:15 Labs: Laboratory Results - last 24 hr 12/12/22 17:46: WBC 10.3, RBC 4.33 L, Hgb 11.9 L, Hct 42.6, MCV 98.4 H, MCH 27.5, MCHC 27.9 L, RDW Std Deviation 62.7 H, RDW Coeff of Cory 17.2 H, Plt Count 165, MPV 10.9, Immature Gran % (Auto) 0.300, Neut % (Auto) 59.4, Lymph % (Auto) 31.2, [place] % (Auto) 7.5, Eos % (Auto) 1.2, Baso % (Auto) 0.4, Absolute Neuts (auto) 6.1, Absolute Lymphs (auto) 3.23, Nucleated RBC % 0, Sodium 141, Potassium 5.0, Chloride 98, Carbon Dioxide 44.0 H, Anion Gap -1 L, BUN 22 H, Creatinine 1.24, Estim Creat Clear Calc 40.50, Est GFR (MDRD) Af Amer 72, Est GFR (MDRD) Non-Af 59 L, BUN/Creatinine Ratio 17.7, Glucose 112 H, Calcium 9.9 12/13/22 04:15: WBC 13.7 H, RBC 4.10 L, Hgb 11.3 L, Hct 40.2, MCV 98.0 H, MCH 27.6, MCHC 28.1 L, RDW Std Deviation 62.3 H, RDW Coeff of Cory 17.3 H, Plt Count 149 L, MPV 10.6, Immature Gran % (Auto) 0.700, Neut % (Auto) 91.5 H, Lymph % (Auto) 6.1 L, [place] % (Auto) 1.5, Eos % (Auto) 0.0, Baso % (Auto) 0.2, Absolute Neuts (auto) 12.5 H, Absolute Lymphs (auto) 0.84, Nucleated RBC % 0, Sodium 142, Potassium 5.0, Chloride 101, Carbon Dioxide 42.0 H, Anion Gap -1 L, BUN 23 H, Creatinine 0.99, Estim Creat Clear Calc 60.59, Est GFR (MDRD) Af Amer 93, Est GFR (MDRD) Non-Af 77, BUN/Creatinine Ratio 23.2 H, Glucose 112 H, Calcium 9.5 12/13/22 08:40: Procalcitonin 0.10 H ABG Data ABG results: ABG 12/12/22 12/12/22 12/13/22 17:45 23:20 10:32 Specimen Type ART ART RUDI Sample Site L RADIAL R Brach pH 7.24 L 7.26 L Bicarbonate Actual 48.1 H 44.6 H Total CO2 > 50 48 Base Excess 21 H 17 H O2 Saturation 82 L 88 L O2 % 40.0 ABG pCO2 112.5 H* 100.1 H* ABG pO2 59 L 69 L Vicente Test POS Positive VBG pH 7.23 L VBG pO2 55 H VBG HCO3 40 H VBG Total CO2 43 H VBG O2 Sat (Calc) 79 H VBG Base Excess 12 H POC Mix VBG pCO2 Pt Tmp 94.3 H* Respiration Rate 12 O2 Delivery Device Nasal Can BiPAP Cannula Liter Flow 5.0 6.0 Tidal Volume 500.0 POC PEEP 8 Crit Call To/Read Back Yes Yes Yes Blood Gas Notified Whom Dr. Sarah MONTALVO Blood Gas Notified Time 1745 10:33:57 Rhythm Strip Rhythm Strip: A-fib Rate: 80 Ectopy: None Radiology Impression Chest X-Ray 12/12/22 17:55 IMPRESSION: Emphysema chronic obstructive pulmonary disease possible nodule right upper lobe measuring 1.2 cm, versus summation artifact. Recommend consideration for follow-up CT scan of the chest when appropriate. Electronically Signed: Jory Manzo MD at 18:25 EDT , Charges/Coding Procedures Hospitalists Procedures: [id number] Critial Care 1st Hr
--- NOTE | 2022-12-13 13:09 | NURSING ---
Pt refusing to wear bipap.
--- NOTE | 2022-12-13 15:23 | CASEMGMT ---
Addendum entered by Elva Ramires 12/13/22 15:51: Christin at [phone] [id number] fax number: [phone] Original Note: Per physicians treating patient, patient is medically ready. SONG contacted Christin on the CT transfer line. SONG asked Christin about patient being transferred to the CT for Psych. Christin said she spoke with RN earlier and patient is getting IV Halodol and he is in restraints. Christin said they cannot take patient while in restraints or on IV Halodol. SONG let Christin know that patient will need bipap at night as well. Christin said it is also possible patient could be transferred to their medical unit first due to the bipap. Again IV Halodol and restraints would prevent transfer. SONG sent updates to Christin and will follow up with her tomorrow. Elva Ramires BULL GANG WORKER SONA
--- NOTE | 2022-12-13 15:58 | NURSING ---
Pt being fed at this time by sitter. HR noted to be 130-140s. Pt c/o dizziness. This RN explains that dizziness may be d/t high heart rate and that he is at a high risk for stroke because of his heart rate and afib and the fact that he hasn't been taking his blood thinners- pt states I wish I would have a stroke and ! I wish I would have a heart attack and ! Again asked if pt would take medication to which he refused.
[2022-12-13] MEDS: Metoprolol Tartrate 50 MG Tablet 150 MG PO (21:05)
--- NOTE | 2022-12-13 21:38 | CPS ---
Patient refusing respiratory panel
[2022-12-14] VITALS (32 sets, daily range): BP systolic 73–146; BP diastolic 55–85; PULSE 69–102; RESP 13–26; TEMP 35.6–36.8; O2SAT 93–100; BMI 18.0
--- NOTE | 2022-12-14 02:49 | NURSING ---
RT attempted to have patient wear the Bipap per order while he was sleeping. Pt immediately took the mask off stating that it was too tight and too much air. Education provided to patient about the need for it to be snug on the face to prevent leaks and also, the need for the Bipap. Pt continues to refuse mask.
--- NOTE | 2022-12-14 02:56 | CPS ---
Attempted bipap at 2:27 pt didn't tolerate, despite lowering pressures.
[2022-12-14 04:26] LABS: Absolute Lymphocyte Count 1.92 X10^3/uL (0.83-4.51); Absolute Neutrophil Count 8.2 X10^3/uL (2.0-7.7); Basophil# 0.02 X10^3/uL; Basophil% 0.2 % (0-1); Eosinophil# 0.03 X10^3/uL; Eosinophils% 0.3 % (0-5); Hematocrit 32.7 % (40-54); Hemoglobin 9.5 g/dL (13.0-16.5); Lymphocyte # 1.92 X10^3/ul (0.83-4.51); Lymphocyte % 16.9 % (19-41); Mean Corp Hgb Conc 29.1 g/dL (32-36); Mean Corpuscular Hgb 27.7 pg (27.0-32.0); Mean Corpuscular Volume 95.3 fL (80-94); Mean Platelet Vol. 10.9 fl (6.2-12.0); Monocyte# 1.14 X10^3/uL; NRBC Flagged by Analyzer 0 % (0-5); Neutrophil # 8.21 X10^3/uL (2.7-7.7); Neutrophil % 72.2 % (47-70); Platelet Count 132 K/mm3 (150-450); RBC Distribution Width CV 18.2 % (11.6-14.6); RBC Distribution Width SD 64.1 fl (35.1-43.9); Red Blood Count 3.43 M/mm3 (4.6-6.2); White Blood Count 11.4 K/mm3 (4.4-11.0)
[2022-12-14 04:41] LABS: ALB/GLOB Ratio 0.7 RATIO (0.9-2.4); AST(SGOT) 12 U/L (15-37); Alanine Aminotransfer ALT/SGPT 11 U/L (16-61); Albumin, Serum 2.6 g/dL (3.2-5.0); Alkaline Phosphatase 51 U/L (45-117); Anion Gap -1 (5-15); BUN 35 mg/dL (7-18); BUN/Creat Ratio 32.7 RATIO (10-20); Calcium,Total 9.1 mg/dL (8.5-10.1); Chloride 98 mmol/L (98-107); Creatinine, Serum 1.07 mg/dL (0.70-1.30); EST Glomerular Filtration Rate 70 mL/min (>60); Est Glom Filt Rate - Afr Amer 85 mL/min (>60); Estimated Creatinine Clearance 47.18 ml/min; Globulin 3.5 g/dL (2.2-4.2); Glucose 92 mg/dL (74-106); Magnesium 2.2 mg/dL (1.6-2.6); Phosphorus 2.5 mg/dL (2.5-4.9); Potassium 4.6 mmol/L (3.5-5.1); Protein, Total 6.1 g/dL (6.4-8.2); Sodium Level 139 mmol/L (136-145)
[2022-12-14] MEDS: Ipratropium/Albuterol Sulfate 3 ML AMPUL.NEB INHALATION ×5 (07:06→22:55)
--- NOTE | 2022-12-14 08:53 | PN.CC_ITS ---
Assessment & Plan Assessment/Plan (1) Acute on chronic respiratory failure with hypoxia and hypercapnia: PLAN: Plan Assessment Acute on chronic hypoxic and hypercapnic respiratory failure COPD exacerbation Dementia with behavioral disturbance Chronic A-fib Suicidal ideation Pseudomonas UTI Plan * Encourage use of AVAPs at night and NC during the day. He is currently on 4L NC which is close to his baseline. He is refusing AVAPS at night * Repeat VBG today shows improvement of CO2 and normal pH * Pt also refusing steroids he is concerned that they are contributing to his hallucinations. We will hold off steroids for now continue breathing treatments. Holding azithromycin for COPD as he's on multiple meds that prolong Qtc. * He will need to continue to use AVAPS at night While in the hospital and upon discharge given his recurrent exacerbations and hypercapnia. However he is refusing * Wean oxygen as tolerated * Abnormality seen in right upper lobe is most likely secondary to scarring as seen on CT scan around 2 weeks ago * Continue ciprofloxacin for Pseudomonas UTI * Bedside sitter * Will need to be evaluated by crisis * Poor prognosis given his comorbidities and recurrent admissions with COPD exacerbations and hypercapnia. Will need to have family meeting in regards to his goals of care. Discussed with social work today, patient is refusing AVAPS and multiple medications. If he agrees to wear his BiPAP, psych Lord will not be able to support that. * DVT prophylaxis patient is on Eliquis * PT OT. Subjective Subjective pt sleepy this AM but answering some questions. He reports that his breathing is always not good Objective Data Objective Data Vital Signs: Vital Signs Temp Pulse Resp BP Pulse Ox O2 Del Method O2 Flow Rate 35.6 C L 93 16 143/82 H 98 Nasal Cannula 4 12/14/22 04:00 12/14/22 07:08 12/14/22 07:08 12/14/22 05:00 12/14/22 07:08 12/14/22 07:08 12/14/22 07:08 FiO2 30 12/13/22 08:31 Oxygen Flow Rate (L/min) 4 Oxygen Delivery Method Nasal Cannula Weight: 61.6 kg Body Mass Index (BMI) 18.0 Intake & Output: Intake and Output for Last 24 Hours 12/12/22 12/13/22 12/14/22 23:59 23:59 23:59 Intake Total 520 / 520 Output Total 100 / 100 150 / 150 Balance 420 / 420 -150 / -150 Lab / Micro Data 12/14/22 09:35 12/14/22 04:15 Labs: Laboratory Results - last 24 hr 12/13/22 08:40: Procalcitonin 0.10 H 12/14/22 04:15: WBC 11.4 H, RBC 3.43 L, Hgb 9.5 L, Hct 32.7 L, MCV 95.3 H, MCH 27.7, MCHC 29.1 L, RDW Std Deviation 64.1 H, RDW Coeff of Cory 18.2 H, Plt Count 132 L, MPV 10.9, Immature Gran % (Auto) 0.400, Neut % (Auto) 72.2 H, Lymph % (Auto) 16.9 L, [place] % (Auto) 10.0, Eos % (Auto) 0.3, Baso % (Auto) 0.2, Absolute Neuts (auto) 8.2 H, Absolute Lymphs (auto) 1.92, Nucleated RBC % 0, Sodium 139, Potassium 4.6, Chloride 98, Carbon Dioxide 42.0 H, Anion Gap -1 L, BUN 35 H, Creatinine 1.07, Estim Creat Clear Calc 47.18, Est GFR (MDRD) Af Amer 85, Est GFR (MDRD) Non-Af 70, BUN/Creatinine Ratio 32.7 H, Glucose 92, Calcium 9.1, Phosphorus 2.5, Magnesium 2.2, Total Bilirubin 0.30, AST 12 L, ALT 11 L, Alkaline Phosphatase 51, Total Protein 6.1 L, Albumin 2.6 L, Globulin 3.5, Albumin/Globulin Ratio 0.7 L Micro: Microbiology 12/11/22 17:50 Nasal Secretion SARS-CoV-2 Antigen (Rapid) - Final ABG Data ABG results: ABG 12/12/22 12/13/22 17:45 10:32 Specimen Type RUDI VBG pH 7.23 L VBG pO2 55 H VBG HCO3 40 H VBG Total CO2 43 H VBG O2 Sat (Calc) 79 H VBG Base Excess 12 H POC Mix VBG pCO2 Pt Tmp 94.3 H* O2 Delivery Device Cannula Liter Flow 6.0 Crit Call To/Read Back Yes Blood Gas Notified Whom Dr. Sarah MONTALVO Blood Gas Notified Time 10:33:57 Rhythm Strip Rhythm Strip: A-fib Rate: 80 Ectopy: None Physical Exam Narrative General sleepy but arousable HEENT. Normocephalic atraumatic, pupils equal and reactive Respiratory reduced air entry bilaterally, mild end expiratory wheeze, no crackles Cardiac S1-S2, regular rate and rhythm GI abdomen soft and nontender MSK no lower extremity edema Skin no rashes Neuro moves all extremities, no dysarthria, no facial droop Charges/Coding Visit Charges Inpatient E&M: 47139 Subs Hosp L3
[2022-12-14] MEDS: Digoxin 125 MCG Tablet PO (09:43)
[2022-12-14] MEDS: Cyanocobalamin 500 MCG Tablet 1000 MCG PO (09:44)
[2022-12-14] MEDS: Metoprolol Tartrate 50 MG Tablet 150 MG PO (09:44)
[2022-12-14] MEDS: SACUBITRIL/VALSARTAN 24/26 MG TABLET 1 EACH PO (09:44)
[2022-12-14] MEDS: APIXABAN 2.5 MG TABLET (WCH) PO ×2 (09:44→21:10)
[2022-12-14] MEDS: ARIPiprazole 5 MG Tablet PO (09:44)
[2022-12-14] MEDS: Citalopram 10 MG Tablet PO (09:44)
[2022-12-14] MEDS: Pantoprazole Sodium 40 MG Tablet PO (09:44)
[2022-12-14] MEDS: Magnesium Chloride 64 MG Delay Rel.Tablet 128 MG PO ×2 (09:44→21:09)
[2022-12-14 09:52] LABS: Blood Gas Specimen Type VEN; O2 Delivery Device Not entered; SITE Not entered; VBG BASE EXCESS 21 mmol/L (-1.0-3.5); VBG Bicarbonate 46 mmol/L (22-26); VBG PO2 27 mmHg (25-40); VBG SO2 43 % (50-70); VBG TCO2 48 mmol/L (23-33); VBG pCO2 79.8 mmHg (41-51); VBG pH 7.37 (7.32-7.42)
[2022-12-14] MEDS: Ciprofloxacin 400 MG/200 ML BAG 200 MG IV ×2 (09:52→22:00)
[2022-12-14] MEDS: 0.9% Saline Lock 10 ML Syringe IV (09:53)
[2022-12-14 10:01] LABS: Hematocrit 36.8 % (40-54); Hemoglobin 10.6 g/dL (13.0-16.5)
--- NOTE | 2022-12-14 10:16 | PN.CC_ITS ---
Objective Data Objective Data Vital Signs: Vital Signs Temp Pulse Resp BP Pulse Ox O2 Del Method O2 Flow Rate 36.2 C L 102 H 26 H 111/76 100 Nasal Cannula 3 12/14/22 08:00 12/14/22 09:44 12/14/22 09:00 12/14/22 09:00 12/14/22 09:00 12/14/22 09:00 12/14/22 09:00 FiO2 30 12/13/22 08:31 Oxygen Flow Rate (L/min) 3 Oxygen Delivery Method Nasal Cannula Weight: 61.6 kg Body Mass Index (BMI) 18.0 Intake & Output: Intake and Output for Last 24 Hours 12/12/22 12/13/22 12/14/22 23:59 23:59 23:59 Intake Total 520 / 520 Output Total 100 / 100 150 / 150 Balance 420 / 420 -150 / -150 Lab / Micro Data 12/14/22 09:35 12/14/22 04:15 Labs: Laboratory Results - last 24 hr 12/14/22 04:15: WBC 11.4 H, RBC 3.43 L, Hgb 9.5 L, Hct 32.7 L, MCV 95.3 H, MCH 27.7, MCHC 29.1 L, RDW Std Deviation 64.1 H, RDW Coeff of Cory 18.2 H, Plt Count 132 L, MPV 10.9, Immature Gran % (Auto) 0.400, Neut % (Auto) 72.2 H, Lymph % (Auto) 16.9 L, [place] % (Auto) 10.0, Eos % (Auto) 0.3, Baso % (Auto) 0.2, Absolute Neuts (auto) 8.2 H, Absolute Lymphs (auto) 1.92, Nucleated RBC % 0, Sodium 139, Potassium 4.6, Chloride 98, Carbon Dioxide 42.0 H, Anion Gap -1 L, BUN 35 H, Creatinine 1.07, Estim Creat Clear Calc 47.18, Est GFR (MDRD) Af Amer 85, Est GFR (MDRD) Non-Af 70, BUN/Creatinine Ratio 32.7 H, Glucose 92, Calcium 9.1, Phosphorus 2.5, Magnesium 2.2, Total Bilirubin 0.30, AST 12 L, ALT 11 L, Carola line Phosphatase 51, Total Protein 6.1 L, Albumin 2.6 L, Globulin 3.5, Albumin/Globulin Ratio 0.7 L 12/14/22 09:35: Hgb 10.6 L, Hct 36.8 L Micro: Microbiology 12/11/22 17:50 Nasal Secretion SARS-CoV-2 Antigen (Rapid) - Final ABG Data ABG results: ABG 12/13/22 12/14/22 10:32 09:46 Specimen Type RUDI RUDI Sample Site Not entered O2 % 3.0 VBG pH 7.23 L 7.37 VBG pO2 55 H 27 VBG HCO3 40 H 46 H VBG Total CO2 43 H 48 H VBG O2 Sat (Calc) 79 H 43 L VBG Base Excess 12 H 21 H POC Mix VBG pCO2 Pt Tmp 94.3 H* 79.8 H* O2 Delivery Device Cannula Not entered Liter Flow 6.0 Crit Call To/Read Back Yes Yes Blood Gas Notified Whom KATIA MONTALVO Blood Gas Notified Time 10:33:57 09:49:02 Rhythm Strip Rhythm Strip: A-fib Rate: 80 Ectopy: None
--- NOTE | 2022-12-14 11:18 | CASEMGMT ---
SONG called patient's son Kenji. SONG introduced self and role at [facility]. SONG asked Kenji if he would be willing to come in to the hospital to meet with the doctor to discuss goals of care. Kenji said SW would need to call his cousin Rosalind as she would have to bring him. Kenji does not drive. SONG asked Kenji if he wants patient transferred [facility] or [facility] and Kenji said he is fine with that also. SONG called Rosalind and left her a voice mail requesting a return call. Elva Ramires ASSOCIATE DRAFTER SONA
--- NOTE | 2022-12-14 11:46 | CASEMGMT ---
SONG received a return call from Rosalind, patient's niece. Rosalind is willing to come to [facility] and bring Kaushal for a goals of care discussion. Meeting was arranged for 13:30 today. Physician and Rosalind notified. Rosalind spoke with Kaushal and he will be able to take off work. RN notified. SONG [facility]ed [facility]. SONG also called and left a voice mail for Christin at the [place]. Elva MAGALLANES
--- NOTE | 2022-12-14 14:35 | CT_ITS ---
STUDY: CT BRAIN WITHOUT CONTRAST REASON FOR EXAM: Male, 82 years old. AMS RADIATION DOSAGE (If Supplied By Facility): CTDIvol = ( 47.06 ) mGy, DLP = ( 907.97 ) mGycm TECHNIQUE: Transaxial CT imaging of the brain was performed without administration of intravenous contrast material. Individualized dose optimization techniques were used for this CT. COMPARISON: No relevant priors. FINDINGS: Comparison is made with prior study dated September 25, 2022. Normal calvarium. There is mild cerebral atrophy with widening of the extra-axial spaces and ventricular dilatation. There are areas of decreased attenuation within the white matter tracts of the supratentorial brain, consistent with microvascular disease changes. Normal basal ganglia and thalami. Normal brainstem. Normal cerebellum. There is no intracranial hemorrhage. There are no findings of an acute ischemic infarction. Minimal thickening at the base of both maxillary sinuses. CT/Brain/Head without Contrast IMPRESSION: Chronic involutional changes of the brain. Electronically Signed: Tico Hooper MD at 15:10 EDT ,
--- NOTE | 2022-12-14 16:43 | PN.HOSP_ITS ---
Reason for Visit Reason for Visit: Suicidal ideation Subjective Subjective Patient is now eating. He is angry because his toast is hard this morning. He did eat 100% of his eggs. He is still intermittently refusing his medications. He did refuse BiPAP last night. Mentation seems to be okay this morning. Objective Data Objective Data Vital Signs: Vital Signs Temp Pulse Resp BP Pulse Ox O2 Del Method O2 Flow Rate 98.2 F 77 19 H 104/58 L 98 Nasal Cannula 3 12/14/22 12:00 12/14/22 15:34 12/14/22 15:34 12/14/22 15:00 12/14/22 15:00 12/14/22 15:00 12/14/22 15:00 FiO2 30 12/13/22 08:31 Oxygen Flow Rate (L/min) 3 Oxygen Delivery Method Nasal Cannula Weight: 61.6 kg Body Mass Index (BMI) 18.0 Intake & Output: Intake and Output for Last 24 Hours 12/12/22 12/13/22 12/14/22 23:59 23:59 23:59 Intake Total 520 / 520 200 / 200 Output Total 100 / 100 1850 / 1850 Balance 420 / 420 -1650 / -1650 Lab / Micro Data 12/14/22 09:35 12/14/22 04:15 Labs: Laboratory Results - last 24 hr 12/14/22 04:15: WBC 11.4 H, RBC 3.43 L, Hgb 9.5 L, Hct 32.7 L, MCV 95.3 H, MCH 27.7, MCHC 29.1 L, RDW Std Deviation 64.1 H, RDW Coeff of Cory 18.2 H, Plt Count 132 L, MPV 10.9, Immature Gran % (Auto) 0.400, Neut % (Auto) 72.2 H, Lymph % (Auto) 16.9 L, [place] % (Auto) 10.0, Eos % (Auto) 0.3, Baso % (Auto) 0.2, Absolute Neuts (auto) 8.2 H, Absolute Lymphs (auto) 1.92, Nucleated RBC % 0, Sodium 139, Potassium 4.6, Chloride 98, Carbon Dioxide 42.0 H, Anion Gap -1 L, BUN 35 H, Creatinine 1.07, Estim Creat Clear Calc 47.18, Est GFR (MDRD) Af Amer 85, Est GFR (MDRD) Non-Af 70, BUN/Creatinine Ratio 32.7 H, Glucose 92, Calcium 9.1, Phosphorus 2.5, Magnesium 2.2, Total Bilirubin 0.30, AST 12 L, ALT 11 L, Alkaline Phosphatase 51, Total Protein 6.1 L, Albumin 2.6 L, Globulin 3.5, Albumin/Globulin Ratio 0.7 L 12/14/22 09:35: Hgb 10.6 L, Hct 36.8 L Micro: Microbiology 12/11/22 17:50 Nasal Secretion SARS-CoV-2 Antigen (Rapid) - Final ABG Data ABG results: ABG 12/14/22 09:46 Specimen Type RUDI Sample Site Not entered O2 % 3.0 VBG pH 7.37 VBG pO2 27 VBG HCO3 46 H VBG Total CO2 48 H VBG O2 Sat (Calc) 43 L VBG Base Excess 21 H POC Mix VBG pCO2 Pt Tmp 79.8 H* O2 Delivery Device Not entered Crit Call To/Read Back Yes Blood Gas Notified Whom ALJUNDI Blood Gas Notified Time 09:49:02 Radiography Diagnostic Testing: Radiology Impression Brain CT 12/14/22 14:35 IMPRESSION: Chronic involutional changes of the brain. Electronically Signed: Tico Hooper MD at 15:10 EDT , Rhythm Strip Rhythm Strip: A-fib Rate: 80 Ectopy: None Physical Exam Const alert and no apparent distress Constitutional Narrative: Cachectic appearing, white male, sitting up in bed, sitter at bedside, eating breakfast, out of restraints and calmer today HEENT normocephalic, head/scalp atraumatic, hearing grossly normal bilaterally and moist oral mucous membranes HEENT Narrative: Dentition is poor, Mallampati is 1, no thrush Resp normal respiratory effort, no retractions, no use of accessory muscles and clear to auscultation bilaterally Resp Narrative: Diffusely diminished Auscultation: Negative for rales, rhonchi or wheezes Cardio regular rate, regular rhythm, S1 normal heart sound, S2 normal heart sound, no murmurs, no rub, no gallops and no clicks GI normal to inspection, nondistended, normoactive bowel sounds, soft to palpation and non-tender GI Narrative: Scaphoid abdomen Extremity Extremity Narrative: Pedal pulses are 2+, clubbing is present, no cyanosis Neuro oriented x3, moves all extremities and no focal motor deficits Speech: speech normal Psych Psych Narrative: Somewhat agitated but less argumentative and calmer today than yesterday Assessment & Plan Assessment/Plan (1) CO2 retention: (2) Acute on chronic respiratory failure with hypoxia and hypercapnia: (3) UTI (urinary tract infection): (4) Leukocytosis: (5) Thrombocytopenia: (6) Abnormal chest x-ray: PLAN: Plan Acute on chronic hypoxic and hypercapnic respiratory failure -Patient wears 3 L nasal cannula baseline -By the looks of his BMP he has a chronic serum bicarb elevation indicative of chronic CO2 retention and I suspect his baseline PCO2 is somewhere between 50 and 60 -Sounds like there are some issues with noncompliance at baseline -Chest x-ray shows emphysematous changes but no infiltrate -Respiratory viral panel was unremarkable -COVID was unremarkable -Patient now on baseline nasal cannula and will continue BiPAP at night and with naps if patient will be compliant -Procalcitonin is unremarkable -Continue IV Solu-Medrol -Continue aerosol treatments -Pulmonary medicine is following and had a family meeting with the patient today both of which are amenable to hospice. Hospice conversation will likely occur tomorrow Pseudomonas UTI -Patient was having dysuria and frequency as an outpatient and urine culture was ordered on 12/07/2022 -Culture shows Pseudomonas with chronic counts greater than 100,000 -Patient had completed 5 days as an outpatient prior to admission -Continue ciprofloxacin 400 mg IV twice daily for now and will transition back to oral Cipro at discharge -Day 6 of 10 Abnormal chest x-ray -Chest x-ray shows possible nodular finding in the right upper lobe that measures 1.2 cm versus summation artifact -Patient did have a CT of his chest for screening purposes with his history of tobacco abuse that showed only diffuse emphysematous changes throughout both lungs, bronchiectasis, small bilateral effusions and bilateral basilar atelectasis and recommended continued annual screening was reported at that time--> this image was was obtained on 11/30/2022 Thrombocytopenia -This is new today -Etiology is unclear -We will continue to monitor Leukocytosis -This again also is new today and left shift is present -We will restart ciprofloxacin for his UTI -May be reactive due to acute events -Check procalcitonin Anemia -Drop yesterday after admission with repeat hemoglobin 6 hours later that showed stability with a hemoglobin of 10.6 -No current further work-up needed at this time COPD -Patient with severe emphysematous changes on CT and x-ray -Does not appear to be on any therapy other than albuterol for his lung disease -Patient with chronic hypoxia and is on 3 L at baseline -Patient with chronic CO2 retention at baseline and would likely qualify for trilogy -Would recommend outpatient follow-up with pulmonary medicine after discharge and PFTs History of coronary artery disease -Echo from 09/20/2022 shows an EF of 60% with mild to moderate tricuspid valve insufficiency -Continue home metoprolol -Continue home Entresto History of atrial fibrillation -Continue home beta-mariluz -Continue home apixaban -Continue home digoxin History of AAA -Previous endovascular repair next-continue outpatient follow-up and blood pressure control Suicidal ideation -Patient will need placement in psychiatric facility after medically stable for discharge -Once medically stable we will have crisis evaluate patient BPH -Continue home medications including Flomax and Proscar Depression/anxiety -Continue home aripiprazole -Continue home Celexa DVT prophylaxis -Patient on full anticoagulation with apixaban CODE STATUS -DNR CCA with no intubation as verified with patient's family including niece and son prior to admission by admitting physician Disposition: -Hospice consultation placed with likely discussion tomorrow to help clarify discharge planning Charges/Coding Visit Charges Inpatient E&M: 80090 Subs Hosp L2
--- NOTE | 2022-12-14 16:50 | CASEMGMT ---
SONG along with physician and RN met with patient's son Kaushal and niece Rosalind. Goals of care were discussed. It was agreed that Hospice will be consulted. Rosalind asked that SW [facility] with [facility] on what [facility] would [facility]. Physician spoke with patient this afternoon and she feels patient is not suicidal. Patient is alert and oriented X3. Patient is in agreement with Hospice. SONG called Mckayla with Hospice to discuss this case and to see if they would entertain taking this patient in their inpatient unit if he qualifies. Mckayla said they would look at patient. SONG sent the referral. SW went to patient's room and he was alert and oriented. SONG introduced self and role at [facility]. SONG asked patient about completing Healthcare Power of Ep Tech papers as it was mentioned patient was interested. Patient said he does want to complete the documents. SW completed documents with patient. Copies were made and given to patient along with original. SONG also placed a copy in patient's chart. SONG called Rosalind and let her know this information. SONG received a call from Hospice and they will meet with patient and family daytonight at 8p. A piece marker small arms will also evaluate patient for the inpatient unit. SONG updated RN. Elva Ramires DIRECTOR OF MEDICAL EDUCATIONRonak MAGALLANES
--- NOTE | 2022-12-14 22:11 | CM.ED ---
Social Work SW received call from ICU regarding patient. Patient had hospice meeting with family and hospice services were agreed upon. Hospice to be notified at time of discharge to begin services at patient's home. Concern regarding whether patient still needs suicide precautions since SI/HI is being denied and physician had noted patient to no longer be suicidal. Patient initially assessed by crisis two days ago and was recommended for placement. Pt expressed SI/HI at that time and had called police. Pt was combative and aggressive in the ED. Pt was referred and denied at multiple places due to aggression, medical concerns and sex offender status. Chart was also sent to the [facility] to review, uncertain of the outcome due to ICU medical admission. SW introduced self and role to patient. Patient agreeable to answering questions. Patient is alert and oriented x3. Pt presents as calm and cooperative, no longer in restraints. Pt reports he agreed to receive hospice services. Pt reports his niece, nephew and son were present for the hospice meeting. Pt reports things didn't go well but then they did in regards to the meeting. Pt reports conflict with son due to son being an alcoholic. Pt reports he lives on one side of the house and his son is on the other and that his son helps him, as well as his niece. Pt reports he called the police and threatened to swallow all his medications in order to kill himself. Pt reports, I was just bluffing. I wasn't going to do it. I called back to apologize but no one answered. Pt denies SI/HI currently. Pt denies any plans or intent to harm himself. Pt reports, I feel pretty good today. Pt is future oriented and discussing whole deer he has ordered this season from family. Pt reports he was in the for 21 years and how he misses having his guns. Pt reports no firearms at the house due to his past assisted history. Pt reports he was in the [facility] psych unit 5-6 times in the past in [place] and [place]. Pt denies any recent psych placements, suicide attempts or self-harm. Pt reports he did try to kill himself too long ago to talk about it. Pt denies any current AVH and does not present as responding to internal stimuli. Patient indicated he wanted to go to a psych hospital when he came in the emergency room. SW discussed denials and need for medical care. Patient unhappy with this answer. Patient is not presenting as actively suicidal or homicidal and has no plan or intent to harm himself or others. Pt reports he is safe with himself and that he will not try to harm himself. SW discussed with patient to notify nursing staff if he has any SI/HI or thoughts of self-harm. Patient does not present as a risk to self/others at this time and further psychiatric referral/placement/suicidal precautions not warranted unless patient has mental status changes. SW discussed with ICU nurse and requested Crisis or SW be called if patient presents with any concerns or SI/HI returns. Plan: Pt to discharge home on hospice unless further SNF/VA/Psych services are needed. Notify hospice on D/C. Shirley Nash MSW, INSPECTOR PROCESS
[2022-12-15] VITALS (26 sets, daily range): BP systolic 70–174; BP diastolic 40–91; PULSE 67–115; RESP 13–20; TEMP 35.8–36.6; O2SAT 91–99
[2022-12-15] MEDS: Ipratropium/Albuterol Sulfate 3 ML AMPUL.NEB INHALATION ×5 (02:24→19:22)
[2022-12-15 03:34] LABS: Absolute Lymphocyte Count 2.65 X10^3/uL (0.83-4.51); Basophil# 0.05 X10^3/uL; Basophil% 0.4 % (0-1); Eosinophil# 0.17 X10^3/uL; Eosinophils% 1.3 % (0-5); Hematocrit 33.1 % (40-54); Hemoglobin 9.7 g/dL (13.0-16.5); Lymphocyte # 2.65 X10^3/ul (0.83-4.51); Lymphocyte % 20.1 % (19-41); Mean Corp Hgb Conc 29.3 g/dL (32-36); Mean Corpuscular Hgb 27.8 pg (27.0-32.0); Mean Corpuscular Volume 94.8 fL (80-94); Mean Platelet Vol. 10.7 fl (6.2-12.0); Monocyte# 1.24 X10^3/uL; Monocyte% 9.4 % (0-10); NRBC Flagged by Analyzer 0 % (0-5); Neutrophil # 9.02 X10^3/uL (2.7-7.7); Neutrophil % 68.2 % (47-70); Platelet Count 141 K/mm3 (150-450); RBC Distribution Width CV 17.9 % (11.6-14.6); RBC Distribution Width SD 62.7 fl (35.1-43.9); Red Blood Count 3.49 M/mm3 (4.6-6.2); White Blood Count 13.2 K/mm3 (4.4-11.0)
[2022-12-15 03:49] LABS: Anion Gap 2 (5-15); BUN 48 mg/dL (7-18); BUN/Creat Ratio 44.4 RATIO (10-20); Calcium,Total 9.1 mg/dL (8.5-10.1); Chloride 99 mmol/L (98-107); Creatinine, Serum 1.08 mg/dL (0.70-1.30); EST Glomerular Filtration Rate 70 mL/min (>60); Est Glom Filt Rate - Afr Amer 84 mL/min (>60); Estimated Creatinine Clearance 46.74 ml/min; Glucose 92 mg/dL (74-106); Potassium 4.5 mmol/L (3.5-5.1); Sodium Level 139 mmol/L (136-145)
[2022-12-15] MEDS: Metoprolol Tartrate 50 MG Tablet 150 MG PO (08:47)
[2022-12-15] MEDS: Cyanocobalamin 500 MCG Tablet 1000 MCG PO (08:48)
[2022-12-15] MEDS: Tamsulosin HCl 0.4 MG Capsule PO (08:48)
[2022-12-15] MEDS: Finasteride 5 MG Tablet PO (08:48)
[2022-12-15] MEDS: Magnesium Chloride 64 MG Delay Rel.Tablet 128 MG PO (08:48)
[2022-12-15] MEDS: ARIPiprazole 5 MG Tablet PO (08:48)
[2022-12-15] MEDS: APIXABAN 2.5 MG TABLET (WCH) PO (08:48)
[2022-12-15] MEDS: Citalopram 10 MG Tablet PO (08:48)
[2022-12-15] MEDS: SACUBITRIL/VALSARTAN 24/26 MG TABLET 1 EACH PO (08:49)
[2022-12-15] MEDS: Pantoprazole Sodium 40 MG Tablet PO (08:49)
--- NOTE | 2022-12-15 08:50 | CASEMGMT ---
SONG called [facility] and left a voice mail requesting a call regarding [facility]. Elva Ramires VP TALENT MANAGEMENT SONA
--- NOTE | 2022-12-15 09:38 | CASEMGMT ---
SONG received a return call from [facility]gr[facility] at [facility] in [place]. Patient never established with a [facility] so [facility] is not able to assist with Hospice. Jamil said if patient could be transferred to [facility] that would help get him connected with the [facility]. Elva MAGALLANES
--- NOTE | 2022-12-15 10:56 | PN.CC_ITS ---
Assessment & Plan Assessment/Plan (1) Acute on chronic respiratory failure with hypoxia and hypercapnia: PLAN: Plan Assessment Acute on chronic hypoxic and hypercapnic respiratory failure COPD exacerbation Dementia with behavioral disturbance Chronic A-fib Pseudomonas UTI Plan * Patient's respiratory status appears to have stabilized. The patient and his family interested in hospice and will explore these options as he is not accepted into inpatient hospice * Pt also refusing steroids he is concerned that they are contributing to his hallucinations. We will hold off steroids for now continue breathing treatments. Holding azithromycin for COPD as he's on multiple meds that prolong Qtc. * Wean oxygen as tolerated continue breathing treatments * Abnormality seen in right upper lobe is most likely secondary to scarring as seen on CT scan around 2 weeks ago * Continue ciprofloxacin for Pseudomonas UTI * Patient evaluated by myself and ER transition social worker. He denies suicidal or homicidal ideation. He noted that he was just frustrated with his medical condition. * Poor prognosis given his comorbidities and recurrent admissions with COPD exacerbations and hypercapnia. Will need to have family meeting in regards to his goals of care. Discussed with social work today, patient is refusing AVAPS and multiple medications. If he agrees to wear his BiPAP, psych Lord will not be able to support that. * DVT prophylaxis patient is on Eliquis * PT OT. Okay to transfer to the floor Subjective Subjective Patient and his family had meeting with hospice. He did not qualify for inpatient hospice. They are discussing other options at this time. Otherwise patient's respiratory status has stabilized. He continues to refuse to wear BiPAP but appears to have maintained his CO2 levels. Objective Data Objective Data Vital Signs: Vital Signs Temp Pulse Resp BP Pulse Ox O2 Del Method O2 Flow Rate 36.2 C L 75 20 H 70/40 L 93 Nasal Cannula 2 12/15/22 08:52 12/15/22 10:02 12/15/22 09:00 12/15/22 10:02 12/15/22 09:00 12/15/22 09:00 12/15/22 09:00 FiO2 30 12/13/22 08:31 Oxygen Flow Rate (L/min) 2 Oxygen Delivery Method Nasal Cannula Weight: 61.6 kg Body Mass Index (BMI) 18.0 Intake & Output: Intake and Output for Last 24 Hours 12/13/22 12/14/22 12/15/22 23:59 23:59 23:59 Intake Total 520 / 520 400 / 400 60 / 60 Output Total 100 / 100 1350 / 1400 350 / 350 Balance 420 / 420 -950 / -1000 -290 / -290 Lab / Micro Data 12/15/22 03:25 12/15/22 03:25 Labs: Laboratory Results - last 24 hr 12/15/22 03:25: WBC 13.2 H, RBC 3.49 L, Hgb 9.7 L, Hct 33.1 L, MCV 94.8 H, MCH 27.8, MCHC 29.3 L, RDW Std Deviation 62.7 H, RDW Coeff of Cory 17.9 H, Plt Count 141 L, MPV 10.7, Immature Gran % (Auto) 0.600, Neut % (Auto) 68.2, Lymph % (Auto) 20.1, [place] % (Auto) 9.4, Eos % (Auto) 1.3, Baso % (Auto) 0.4, Absolute Neuts (auto) 9.0 H, Absolute Lymphs (auto) 2.65, Nucleated RBC % 0, Sodium 139, Potassium 4.5, Chloride 99, Carbon Dioxide 38.0 H, Anion Gap 2 L, BUN 48 H, Creatinine 1.08, Estim Creat Clear Calc 46.74, Est GFR (MDRD) Af Amer 84, Est GFR (MDRD) Non-Af 70, BUN/Creatinine Ratio 44.4 H, Glucose 92, Calcium 9.1 Micro: Microbiology 12/11/22 17:50 Nasal Secretion SARS-CoV-2 Antigen (Rapid) - Final Radiography Diagnostic Testing: Radiology Impression Brain CT 12/14/22 14:35 IMPRESSION: Chronic involutional changes of the brain. Electronically Signed: Tico Hooper MD at 15:10 EDT , Rhythm Strip Rhythm Strip: A-fib Rate: 80 Ectopy: None Physical Exam Narrative General awake in no acute distress HEENT. Normocephalic atraumatic, pupils equal and reactive Respiratory reduced air entry bilaterally, mild end expiratory wheeze, no crackles Cardiac S1-S2, regular rate and rhythm GI abdomen soft and nontender MSK no lower extremity edema Skin no rashes Neuro moves all extremities, no dysarthria, no facial droop Charges/Coding Visit Charges Inpatient E&M: 41606 Subs Hosp L3
--- NOTE | 2022-12-15 12:00 | CASEMGMT ---
SONG spoke with Christin with [facility] transfer line. SONG explained that patient spoke with Hospice and is now interested in Hospice. SONG also explained that patient was cleared by SONG for psych. Christin said since [facility] not [facility] [place] it would be best to transfer patient to [facility]. That way a [facility] physician can Hospice certify patient and they will take care of d/c from there whether it is to a facility on Hospice or home with help set up from the [facility]. Christin asked SONG to talk with patient to make sure he is in agreement with transfer then call her back. SONG spoke with patient and let him know that in order to get assistance from [facility] he would need to transfer to [facility] [place]. They can get him established and arrange hospice from there. Patient was in agreement with this plan. Patient is also in agreement with home on Hospice vs facility on Hospice. SONG had patient sign the [facility] transfer form. SONG called Christin back and let her know this information. SONG went over patient's vitals with Christin. Christin asked that patient's blood pressure be re-taken due to it being so low. Christin spoke with [facility] physician and he agreed to take patient. Christin thinks he will likely go to . The number for report would be [phone] [id number]. RN is not to call report until transport arrives. Christin said they would need a COVID PCR, imaging on a disc, and a copy of patient's chart. Christin also asked for SW to fax updated Dr note, SW note for psych, and DNR. SONG faxed this information to Christin. SONG updated JESSI Manzanares on BP, COVID, and possible transfer to [facility] today. SONG received a call from Rosalind, patient's niece and POA. Rosalind said patient left a message for [facility] stating he was being transferred. SONG explained situation to Rosalind and told her this is not definite yet, but SW will let them know. Elva Ramires COCOA PRESS OPERATOR PIG MACHINE OPERATOR
--- NOTE | 2022-12-15 15:29 | CASEMGMT ---
SONG called Christin with [facility] and let her know patient's COVID test will not be resulted until 4p. Christin spoke with RN to obtain a new blood pressure. Awaiting COVID test and transport time from [facility]. Elva MAGALLANES
--- NOTE | 2022-12-15 16:34 | DS.PCM_ITS ---
Providers Date of Admission: 12/12/22 Date of Discharge: 12/15/22 Primary Care Physician: Dr. Mikey Castaneda MD Consultations 12/12/22 21:02 Consult: Clinical Research Coordinator / Pulmonary Medicine Routine Consulting Provider: Pulmonary Medicine teja Washburn Reason for Consult: Hypercapnia, COPD EMERGENT Consult: No MD Notified: Yes Date Notified: 12/12/22 Time Notified: 21:12 Method of Notification: Text Reason For Visit: HYPERCAPNIA Diagnosis Discharge Diagnosis (1) Acute on chronic respiratory failure with hypoxia and hypercapnia: Status: Chronic Code(s): J96.21 - Acute and chronic respiratory failure with hypoxia; J96.22 - Acute and chronic respiratory failure with hypercapnia Medications at Discharge Home Medications albuterol sulfate 90 mcg/actuation aerosol inhaler 1 puff inhalation Q6H Breathing 09/26/22 apixaban 2.5 mg PO/SL BID blood thinner 09/26/22 finasteride 5 mg tablet 5 mg PO DAILY prosate 09/26/22 pantoprazole 40 mg tablet,delayed release (Protonix) 40 mg PO DAILY gerd 09/26/22 tamsulosin 0.4 mg capsule 0.4 mg PO DAILY prostate 09/26/22 metoprolol succinate 100 mg tablet,extended release 24 hr 100 mg PO DAILY 30 days #30 tabs 10/17/22 metoprolol tartrate 75 mg tablet 150 mg (2 x 75 mg) PO BID 30 days #120 tabs 10/17/22 aripiprazole 5 mg tablet 5 mg PO DAILY 12/11/22 ciprofloxacin HCl 250 mg tablet 250 mg PO Q12H 12/11/22 citalopram 10 mg tablet (Celexa) 10 mg PO DAILY 12/11/22 cyanocobalamin (vitamin B-12) 1,000 mcg tablet 1,000 mcg PO DAILY 12/11/22 digoxin 125 mcg (0.125 mg) tablet 0.125 mg PO .QOD 12/11/22 magnesium oxide 420 mg tablet 420 mg PO BID 12/11/22 sacubitril 24 mg-valsartan 26 mg tablet (Entresto) 1 tab PO DAILY 12/11/22 Hospital Course Operations None Procedures EKG and - (Chest x-ray/CT brain) Summary of Care Provided Minutes Spent on Discharge: 33 Hospital Course: Mr. Zhang is an 82-year-old white male who presented to the emergency department on 12/11/2022 with suicidal ideation. He would not go into detail with this regarding specifics but did report that he was extremely upset with his son and was having thoughts of killing himself. Upon presentation he also complained of dysuria and urinary frequency and reported he had recently been placed on antibiotic. Upon review of chart it does appear that the patient was recently diagnosed with a pseudomonal UTI and placed on ciprofloxacin 250 mg p.o. twice d aily culture resulted positive on 12/07/2022. He was waiting in the emergency department to be evaluated by crisis and the plan was to admit him to a psychiatric facility for suicidal ideation. Unfortunately while he was in the emergency department he had increased somnolence and an ABG was performed that demonstrated CO2 retention having a pH of 7.24 and a PCO2 of 112. He was placed on BiPAP in the emergency department and then admitted to the ICU. CBC on presentation was overall unremarkable. His chemistry panel shows chronic serum bicarb elevation consistent with chronic hypercapnia and I would suspect that his baseline PCO2 is between 50 and 60. There was a an extensive discussion on the day of presentation with the patient's niece and son and they both confirm that the patient would not want to be intubated so DNR CCA with no intubation was placed the patient was resistant to wearing BiPAP in the emergency department and sedation had to be administered in order for him to maintain BiPAP placement. It does appear the patient is to wear chronic oxygen with 3 L at baseline. Patient responded very adequately to BiPAP and was able to get back on his baseline nasal cannula. We continue to recommend BiPAP at night and while sleeping however the patient was noncompliant with his refused to wear it. 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 He met criteria based on his respiratory disease at baseline. He is chronically hypoxic and hypercapnic and his likelihood of decompensation is fairly high. He recently moved to [place] and had not yet established with a [place] doctor. In order to qualify him for hospice we had to transfer him to the [place] to establish with t [facility] doctor and then they would transition him to hospice. He was discharged in stable condition to the [facility] in [place] on 12/15/2022 to pursue hospice care. Of note patient was also found to have a pseudomonal UTI and at the time of discharge had completed 7 of 10 days. Discharge diagnoses: Acute on chronic hypoxic and hypercapnic respiratory failure-acute component resolved Pseudomonal UTI-day 7 for antibiotics Abnormal chest x-ray Thrombocytopenia Leukocytosis Anemia COPD History of coronary artery disease History of atrial fibrillation History of AAA Suicidal ideation BPH Depression Anxiety Physical Exam Const alert, oriented x3 and no apparent distress Constitutional Narrative: Cachectic appearing, white male, sitting up in bed, eating breakfast, patient is somewhat more pleasant today, less argumentative General Appearance: cooperative, comfortable, well kempt and well developed Orientation / Consciousness: awake, oriented to person and oriented to place Exam Limitations: no limitations Nutritional Appearance: cachectic HEENT normocephalic, head/scalp atraumatic, hearing grossly normal bilaterally and moist oral mucous membranes Neck no lymphadenopathy and supple Neck Narrative: Trachea midline, no thyroid enlargement Resp normal respiratory effort, no retractions, no use of accessory muscles and clear to auscultation bilaterally Resp Narrative: Diffusely diminished Auscultation: Negative for rales, rhonchi or wheezes Cardio regular rate, regular rhythm, S1 normal heart sound, S2 normal heart sound, no murmurs, no rub, no gallops and no clicks Cardio Narrative: Heart rate and rhythm is irregular GI normal to inspection, nondistended, normoactive bowel sounds, soft to palpation, non-tender and non-distended GI Narrative: Scaphoid abdomen Extremity no clubbing, cyanosis or edema Extremity Narrative: Pedal pulses are 2+, clubbing is present, no cyanosis Neuro oriented x3, moves all extremities and no focal motor deficits Speech: speech normal Psych affect normal Psych Narrative: Much calmer today and pleasantly interactive Weight / BMI Weight Weight: 61.6 kg Body Mass Index (BMI) 18.0 ABG / Lab / Microbiology Data 12/15/22 03:25 12/15/22 03:25 Laboratory: Laboratory Results - last 24 hr 12/15/22 03:25: WBC 13.2 H, RBC 3.49 L, Hgb 9.7 L, Hct 33.1 L, MCV 94.8 H, MCH 27.8, MCHC 29.3 L, RDW Std Deviation 62.7 H, RDW Coeff of Cory 17.9 H, Plt Count 141 L, MPV 10.7, Immature Gran % (Auto) 0.600, Neut % (Auto) 68.2, Lymph % (Auto) 20.1, [place] % (Auto) 9.4, Eos % (Auto) 1.3, Baso % (Auto) 0.4, Absolute Neuts (auto) 9.0 H, Absolute Lymphs (auto) 2.65, Nucleated RBC % 0, Sodium 139, Potassium 4.5, Chloride 99, Carbon Dioxide 38.0 H, Anion Gap 2 L, BUN 48 H, Creatinine 1.08, Estim Creat Clear Calc 46.74, Est GFR (MDRD) Af Amer 84, Est GFR (MDRD) Non-Af 70, BUN/Creatinine Ratio 44.4 H, Glucose 92, Calcium 9.1 Microbiology: Microbiology 12/15/22 12:53 Mucosa - Nasopharyngeal Respiratory Panel (PCR) - Final 12/15/22 12:53 Mucosa - Nasopharyngeal Coronavirus COVID-19 PCR - Final 12/11/22 17:50 Nasal Secretion SARS-CoV-2 Antigen (Rapid) - Final D/C Instructions Discharge Diet: No restrictions Meaningful Use Info Meaningful Use Diagnoses (Choose all that apply): None applicable Discharge Plan Admission Admit Date/Time: 12/12/22 18:40 Primary Reason for Your Visit: SI Attending Provider: Bina Smiley Primary Care Provider: Mikey Castaneda Chi Consulting Providers: Rickey Silver; Noe Newman; Katerine Reyna; Baljit Hernandez; Dar Read; Mahnaz Decker MANAGER AGENCY; Kayden Zendejas Discharge Orders/Prescriptions Prescriptions: No Action tamsulosin 0.4 mg Capsule 0.4 mg PO DAILY pantoprazole [Protonix] 40 mg Tablet,Delayed Release (Dr/Ec) 40 mg PO DAILY albuterol sulfate 90 mcg/actuation Hfa Aerosol Inhaler 1 puff INHALATION Q6H finasteride 5 mg Tablet 5 mg PO DAILY apixaban 2.5 mg 2.5 mg PO/SL BID metoprolol tartrate 75 mg tablet 150 mg PO BID 30 Days Qty: 120 0RF metoprolol succinate 100 mg tablet extended release 24 hr 100 mg PO DAILY 30 Days Qty: 30 0RF aripiprazole 5 mg tablet 5 mg PO DAILY Patient Comments: take 1 tablet by mouth once daily digoxin 125 mcg (0.125 mg) tablet 0.125 mg PO .QOD Patient Comments: take 1 tablet by mouth once daily Entresto 24-26 mg tablet 1 tab PO DAILY ciprofloxacin HCl 250 mg tablet 250 mg PO Q12H Patient Comments: take 1 tablet by mouth twice a day until finished Rx Instructions: FILLED 12/07 citalopram [Celexa] 10 mg tablet 10 mg PO DAILY cyanocobalamin (vitamin B-12) 1,000 mcg tablet 1,000 mcg PO DAILY magnesium oxide 420 mg tablet 420 mg PO BID Referrals / Follow Up: Mikey Castaneda Chi, MD [Primary Care Provider] - Disposition Disposition (needs filled in before D/C Order can be placed): Acute Care Hospital Charges/Coding Visit Charges Inpatient E&M: 27609 Disch Hosp
--- NOTE | 2022-12-15 22:15 | NURSING ---
Attempted to call report to [facility] @2039 upon pt departure of unit. Nickel Plant Operator there connected to [id number], no answer. Again tried to call report @ 2109. Connected to [id number]. audit control clerk sent call to nurses phone, recording stated nurse was not logged in, unable to reach. Received call from [place] approximately 2144 requesting report. Returned call at 2209, again connected to [id number], put through to nurses phone. Nurse still not logged in to phone, voicemail left.
== END 2022-12-15 20:35 | disposition short-term general hospital (02) | DRG 189 ==
LOC: ED 12-12 18:20 → ICU 12-12 18:51
PROVIDERS: Emergency Medicine; Admitting Provider Internal Medicine; Emergency Provider Emergency Medicine; PCP Family Medicine Geriatric Medicine; Visit Provider Internal Medicine
DX: J96.22 Acute and chronic respiratory failure with hypercapnia (principal); E87.29 Other acidosis; F03.918 Unspecified dementia, unspecified severity, with other behavioral disturbance; J44.1 Chronic obstructive pulmonary disease with (acute) exacerbation; I48.20 Chronic atrial fibrillation, unspecified; R45.851 Suicidal ideations; N39.0 Urinary tract infection, site not specified; D69.6 Thrombocytopenia, unspecified; I27.20 Pulmonary hypertension, unspecified; J96.21 Acute and chronic respiratory failure with hypoxia; I07.1 Rheumatic tricuspid insufficiency; F32.A Depression, unspecified; D64.9 Anemia, unspecified; I25.10 Atherosclerotic heart disease of native coronary artery without angina pectoris; F41.9 Anxiety disorder, unspecified; Z79.01 Long term (current) use of anticoagulants; Z87.891 Personal history of nicotine dependence; Z83.71 Family history of colonic polyps; B96.5 Pseudomonas (aeruginosa) (mallei) (pseudomallei) as the cause of diseases classified elsewhere; N40.0 Benign prostatic hyperplasia without lower urinary tract symptoms; Z87.440 Personal history of urinary (tract) infections; R91.8 Other nonspecific abnormal finding of lung field
CPT/HCPCS: 36600; 70450; 71045; 80048; 80053; 80307; 81001; 82077; 82803; 83735; 84100; 84145; 85014; 85018; 85025; 87633; 87635; 87811; 93005; 94002; 94003; 94640; 94762; 97162; 97166; 97802; 97803; 99285; A4216; J0744; J3486

== ENCOUNTER 2023-01-06 19:38 | Emergency (ER) | payer OTHER, SELFPAY ==
[2023-01-06 19:40] VITALS: BP 176/83; PULSE 73; RESP 18; TEMP 36.5; O2SAT 98; BMI 18.3
--- NOTE | 2023-01-06 20:02 | CT_ITS ---
STUDY: CT BRAIN WITHOUT CONTRAST REASON FOR EXAM: Male, 82 years old. head injury RADIATION DOSAGE (If Supplied By Facility): CTDIvol = ( 44.99 ) mGy, DLP = ( 846.73 ) mGycm TECHNIQUE: Transaxial CT imaging of the brain was performed without administration of intravenous contrast material. Individualized dose optimization techniques were used for this CT. COMPARISON: December 14, 2022. FINDINGS: Normal soft tissue structures. Normal calvarium. Calcific plaquing cavernous carotids Mild atrophy and periventricular white matter ischemic changes. Normal basal ganglia and thalami. Normal brainstem. Normal cerebellum. There is no intracranial hemorrhage. There are no findings of an acute ischemic infarction. Mucosal thickening of left maxillary and ethmoid sinus. Deformity of the left maxillary antrum which appears chronic and likely posttraumatic CT/Brain/Head without Contrast IMPRESSION: Mild atrophy and periventricular white matter ischemic change. No acute intracranial bleed. 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
--- NOTE | 2023-01-06 20:03 | EKG12_ITS ---
Test Reason : DYSRHYTHMIA Blood Pressure : / mmHG Vent. Rate : 083 BPM Atrial Rate : 000 BPM P-R Int : 000 ms QRS Dur : 084 ms QT Int : 324 ms P-R-T Axes : 000 071 072 degrees QTc Int : 380 ms Atrial fibrillation Abnormal ECG Confirmed by BOBBI KEE, NAYELY ([id number]), food editor NANCY VELASQUEZ ([id number]) on 01/10/2023 12:11:30 PM Referred By: Confirmed By:NAYELY MARTINES MD
--- NOTE | 2023-01-06 20:04 | RAD_ITS ---
STUDY: X-RAY - LEFT WRIST REASON FOR EXAM: Male, 82 years old. pain TECHNIQUE: 3 view(s) of the wrist were obtained. COMPARISON: None. FINDINGS: Acute minimally impacted fracture of the distal radial shaft with minor overlapping of fracture fragments. Normal ulna. Normal radiocarpal articulation. Normal distal radioulnar articulation. Normal carpal bones. Normal carpal articulations. Normal carpometacarpal articulation of the thumb. Normal second through fifth carpometacarpal articulations. Normal visualized metacarpal bones. Soft tissue swelling of the distal forearm. RAD/Wrist min 3 Views IMPRESSION: Acute minimally impacted distal radial fracture Electronically Signed: Efra Cho MD at 21:40 EDT ,
--- NOTE | 2023-01-06 20:04 | RAD_ITS ---
STUDY: X-RAY - RIGHT SHOULDER REASON FOR EXAM: Male, 82 years old. pain TECHNIQUE: 2 view(s) of the shoulder. COMPARISON: None. FINDINGS: Narrowed glenohumeral articulation. Normal acromioclavicular joint. Normal acromion. Mildly impacted comminuted fracture of the right humeral head and neck with mild overlapping of fracture fragments. The soft tissue structures are unremarkable. Normal visualized pulmonary apex. RAD/Shoulder min 2 Views IMPRESSION: Acute mildly impacted fracture of the right humeral head and neck. Electronically Signed: Efra Cho MD at 21:38 EDT ,
--- NOTE | 2023-01-06 20:04 | CT_ITS ---
STUDY: CT CERVICAL SPINE WITHOUT CONTRAST REASON FOR EXAM: Male, 82 years old. fall RADIATION DOSAGE (If Supplied By Facility): CTDIvol = ( 16.59 ) mGy, DLP = ( 1181.20 ) mGycm TECHNIQUE: High resolution transaxial imaging was performed without contrast material. Sagittal and coronal images were reconstructed. Individualized dose optimization techniques were used for this CT. COMPARISON: None FINDINGS: Normal craniovertebral junction. Normal anterior atlantoaxial articulation. Normal odontoid process. Normal cervical lordosis. Normal vertebral bodies and posterior osseous elements. C2-3: Normal endplates. Normal disc height and morphology. Normal central canal and intervertebral neuroforamina. C3-4: Narrowed disc space and minimal endplate spurring.. Normal central canal. Mild bilateral neural foraminal encroachment secondary to bony hypertrophy C4-5: Narrowed disc space and disc morphology. Normal central canal.. Severe left neuroforaminal stenosis secondary to bony hypertrophy. C5-6: Normal endplates. Normal disc height and morphology. Normal central neuroforaminal stenosis secondary to bony hypertrophy C6-7: Narrowed disc space and minor endplate spurring. Normal central canal and intervertebral neuroforamina. C7-T1: Normal endplates. Normal disc height and morphology. Normal central canal and intervertebral neuroforamina. Normal visualized soft tissue structures. CT/Spine Cervical without Contras IMPRESSION: Mild to moderate spondylosis.. No acute fracture or other significant abnormality Electronically Signed: Efra Cho MD at 21:34 EDT ,
--- NOTE | 2023-01-06 20:11 | CM.ED ---
Social Work SW performed chart review; HCPOA document completed and on file as of December of 2022. Patient indicated he did not complete a LW. Patient's HCPOA is patient's niece, Rosalind and alternates are patient's son Kenji and brother in law Rony. Patient has the following special instructions listed my agent is not to allow a tube put down my throat again. Do not call an ambulance until I flatline and also not to make any health care decision while I am of sound mind. Nikky Sawant TREASURY MANAGER, S[facility]
[2023-01-06] MEDS: Morphine 4 MG/ML Syringe IV (20:21)
[2023-01-06] MEDS: Ondansetron 4 MG/2 ML Vial IV (20:21)
[2023-01-06 20:23] LABS: Bacteria 0 SEEN /hpf (None Seen); Mucous, Urine 0 SEEN /hpf (<or=2+); Red Blood Cells-Urine 0 SEEN /hpf (0-5)
[2023-01-06 20:25] LABS: Absolute Lymphocyte Count 1.99 X10^3/uL (0.83-4.51); Absolute Neutrophil Count 5.4 X10^3/uL (2.0-7.7); Basophil# 0.06 X10^3/uL; Basophil% 0.7 % (0-1); Eosinophil# 0.19 X10^3/uL; Eosinophils% 2.3 % (0-5); Hematocrit 35.3 % (40-54); Hemoglobin 10.5 g/dL (13.0-16.5); Lymphocyte # 1.99 X10^3/ul (0.83-4.51); Lymphocyte % 23.6 % (19-41); Mean Corp Hgb Conc 29.7 g/dL (32-36); Mean Corpuscular Volume 94.1 fL (80-94); Mean Platelet Vol. 10.9 fl (6.2-12.0); Monocyte# 0.71 X10^3/uL; Monocyte% 8.4 % (0-10); NRBC Flagged by Analyzer 0 % (0-5); Neutrophil # 5.43 X10^3/uL (2.7-7.7); Neutrophil % 64.5 % (47-70); Platelet Count 164 K/mm3 (150-450); RBC Distribution Width CV 18.2 % (11.6-14.6); RBC Distribution Width SD 62.9 fl (35.1-43.9); Red Blood Count 3.75 M/mm3 (4.6-6.2); White Blood Count 8.4 K/mm3 (4.4-11.0)
[2023-01-06 20:26] LABS: Color, Urine Yellow (Yellow); Glucose, Dipstick Normal (Normal); Ketone-Dipstick Negative (Negative); Leukocyte Esterase-Dipstick 25 /ul (Negative); Nitrite-Dipstick Negative (Negative); Occult Blood-Urine 10 /ul (Negative); Protein-Dipstick 15 mg/dl (Negative); Specific Gravity, Urine 1.015 (1.002-1.030); Urine Bilirubin Dipstick Negative (Negative); Urine Clarity Clear (Clear); Urine Urobilinogen Normal (Normal)
[2023-01-06 20:33] LABS: Squamous Epithelial Cells - UA 0-5 SEEN /hpf (0-5); White Blood Cells 0-5 SEEN /hpf (0-5)
--- NOTE | 2023-01-06 20:40 | RAD_ITS ---
STUDY: X-RAY CHEST REASON FOR EXAM: Male, 82 years old. cough TECHNIQUE: AP portable COMPARISON: December 12, 2022 FINDINGS: Lungs are hyperinflated and there is interstitial thickening most severe in the lower lobes. There is slightly increased density in the right lower lobe possibly representing superimposed inflammatory disease Mild blunting of the costophrenic angles likely representing pleural thickening although cannot exclude tiny effusions. Normal size heart. Normal mediastinum and alexandro. Normal visualized pulmonary arteries. Mildly calcified aortic arch and descending thoracic aorta. Normal visualized thoracic spine. Normal visualized ribs, clavicles, and shoulders. There is no demonstrated abnormality of the visualized soft tissue structures of the upper abdomen. RAD/Chest 1 View (Portable) IMPRESSION: COPD and predominantly bibasilar chronic interstitial thickening. . Cannot definitively exclude coexisting mild inflammatory changes at the right base Electronically Signed: Efra Cho MD at 21:37 EDT ,
[2023-01-06 20:47] LABS: ALB/GLOB Ratio 0.7 RATIO (0.9-2.4); AST(SGOT) 14 U/L (15-37); Alanine Aminotransfer ALT/SGPT 15 U/L (16-61); Alkaline Phosphatase 65 U/L (45-117); Anion Gap 1 (5-15); BUN 22 mg/dL (7-18); Calcium,Total 9.5 mg/dL (8.5-10.1); Chloride 96 mmol/L (98-107); Creatinine, Serum 0.96 mg/dL (0.70-1.30); EST Glomerular Filtration Rate 80 mL/min (>60); Est Glom Filt Rate - Afr Amer 97 mL/min (>60); Estimated Creatinine Clearance 53.86 ml/min; Globulin 4.3 g/dL (2.2-4.2); Glucose 94 mg/dL (74-106); Potassium 4.9 mmol/L (3.5-5.1); Protein, Total 7.3 g/dL (6.4-8.2); Sodium Level 137 mmol/L (136-145); Troponin-I HS 19 pg/mL (3.0-78.0)
[2023-01-06 20:55] LABS: Digoxin Level 0.79 ng/mL (0.80-2.00)
[2023-01-06 21:50] VITALS: BP 104/55; PULSE 107; RESP 10; O2SAT 65
[2023-01-06 22:00] VITALS: BP 104/66; PULSE 104; RESP 12; O2SAT 92
[2023-01-06 22:21] VITALS: BP 129/69; PULSE 108; RESP 12; O2SAT 100
--- NOTE | 2023-01-06 22:23 | ED.RN ---
This RN called to room by morgue technician stating pt was becoming more lethargic. Spo2 65% on 2L NC, pt drowsy, opens eyes to name and complains to feeling more dizzy than usual. Non-rebreather applied, Sp02 improved but pt remains drowsy. notified. This RN called CARLEE Boyer, updated of current situation, she states she'll be here in 10 min.
[2023-01-06 22:40] VITALS: BP 153/76; PULSE 106; RESP 13; O2SAT 99
--- NOTE | 2023-01-06 22:40 | ED.RN ---
MD updated on pt having episodes of apnea, only responding to painful stimuli.
--- NOTE | 2023-01-06 23:23 | EDS_ITS ---
HPI HPI - Fall History of Present Illness Chief Complaint: Fall Narrative Narrative: 82-year-old male presenting after a fall from bed. He stained a superficial laceration to the right eyebrow laterally. He states his right shoulder and left wrist hurt. Patient is currently on hospice due to oxygen issues. Family states they do not want any CPR or intubation. Patient currently with normal vital signs and awake and alert. Patient denied LOC. [facility] Medical History Anemia Chronic anticoagulation CO2 retention Endotracheally intubated History of atrial fibrillation History of COPD History of GI bleed Hypercapnic respiratory failure Home Medications albuterol sulfate 90 mcg/actuation aerosol inhaler 1 puff inhalation Q6H Breathing 09/26/22 [History Last Taken Unknown] apixaban 2.5 mg PO/SL BID blood thinner 09/26/22 [History Last Taken 12/11/22] finasteride 5 mg tablet 5 mg PO DAILY prosate 09/26/22 [History Last Taken 12/10/22] pantoprazole 40 mg tablet,delayed release (Protonix) 40 mg PO DAILY gerd 09/26/22 [History Last Taken 12/11/22] tamsulosin 0.4 mg capsule 0.4 mg PO DAILY prostate 09/26/22 [History Last Taken 12/10/22] metoprolol succinate 100 mg tablet,extended release 24 hr 100 mg PO DAILY 30 days #30 tabs 10/17/22 [Rx Last Taken 12/10/22] metoprolol tartrate 75 mg tablet 150 mg (2 x 75 mg) PO BID 30 days #120 tabs 10/17/22 [Rx Last Taken 12/11/22] aripiprazole 5 mg tablet 5 mg PO DAILY 12/11/22 [History Last Taken 12/11/22] ciprofloxacin HCl 250 mg tablet 250 mg PO Q12H 12/11/22 [History Last Taken 12/11/22] citalopram 10 mg tablet (Celexa) 10 mg PO DAILY 12/11/22 [History Last Taken Unknown] cyanocobalamin (vitamin B-12) 1,000 mcg tablet 1,000 mcg PO DAILY 12/11/22 [History Last Taken Unknown] digoxin 125 mcg (0.125 mg) tablet 0.125 mg PO .QOD 12/11/22 [History Last Taken 12/10/22] magnesium oxide 420 mg tablet 420 mg PO BID 12/11/22 [History Last Taken Unknown] sacubitril 24 mg-valsartan 26 mg tablet (Entresto) 1 tab PO DAILY 12/11/22 [History Last Taken 12/11/22] Allergy/AdvReac Type Severity Reaction Status Date / Time Penicillins Allergy Severe Hives Verified 01/06/23 19:39 Family History Other S/P colon polypectomy Social History Smoking Status: Current some day smoker tobacco type: cigarettes and smokeless tobacco EXAM Physical Exam Const Vital Signs: 01/06/23 19:40 01/06/23 19:44 01/06/23 21:50 Temperature 97.7 F L Temperature Source Oral Pulse Rate 73 107 H Respiratory Rate 18 10 L Respiratory Effort Normal Non-Labored Respiratory Depth Normal Respiratory Pattern Normal Blood Pressure 176/83 H 104/55 L Blood Pressure Mean 114 71 Pulse Ox 98 65 Oxygen Delivery Method Nasal Cannula Nasal Cannula Nasal Cannula Oxygen Flow Rate (L/min) 3 3 2 01/06/23 22:00 01/06/23 22:21 01/06/23 22:40 Temperature Temperature Source Pulse Rate 104 H 108 H 106 H Respiratory Rate 12 12 13 Respiratory Effort Respiratory Depth Respiratory Pattern Blood Pressure 104/66 129/69 H 153/76 H Blood Pressure Mean 78 89 101 Pulse Ox 92 100 99 Oxygen Delivery Method Non-Rebreather Non-Rebreather Nasal Cannula Oxygen Flow Rate (L/min) 15 15 6 Positive well nourished General Appearance ED: NAD HEENT Reports normocephalic HEENT Narrative: Superficial abrasion/laceration to the lateral aspect of the right eyebrow. No other facial bone tenderness. Nasal septum midline. No epistaxis. No evidence of basilar skull fracture. Eyes PERRL and EOMs intact bilaterally Neck full ROM Resp normal respiratory effort and no retractions Auscultation: Negative for rales, rhonchi or wheezes Cardio regular rate and regular rhythm GI non-tender Extremity Extremity Narrative: Tenderness to palpation of the left wrist over radius. No significant swelling, bruising. Patient also has tenderness palpation over the right shoulder and there is bruising and swelling here. Patient unable to move his shoulder secondary to pain. Neuro oriented x3, CN's II-XII intact bilaterally, moves all extremities and no focal motor deficits Psych mental status grossly normal MDM MDM MDM Narrative Medical decision making narrative: Presenting after fall. He is a superficial laceration to the right eyebrow which does not need sutures. Currently on hospice however EMS was called due to his injury. Includes intracranial bleed, facial laceration, dehydration, electrode normalities, acute coronary syndrome, CHF, kidney toxicity, , shoulder fracture, wrist fracture, skull fracture, intracranial hemorrhage. She was obtained to assess white blood cell count, hemoglobin, platelets. CMP to assess liver function, renal function, electrolytes, glucose. Oxygen level be obtained. To be troponin and EKG to assess for ischemia/dysrhythmia. Chest x- ray to rule out pneumonia. CT brain and cervical spine will be obtained to rule out intracranial injury/C-spine fracture. Shoulder x-ray to assess for shoulder fracture. Left wrist x-ray to assess for left wrist fracture. Seizures normal white blood cell count of 8.4. Globin 10.4 near baseline. Platelets 164. Renal function and electrolytes within normal limits. Normal. Negative for infection. EKG shows A-fib at a ventricular of 83 bpm without sign of ischemic change. Digoxin level slightly subtherapeutic at 0.79. CT brain and CT C-spine were negative. Chest x-ray on my interpretation shows no acute process. Shoulder x-ray on my interpretation shows a right humeral neck fracture. Left wrist x-ray my interpretation shows a minimally impacted left distal radius fr acture. Patient was placed in a sling on the right and a left wrist splint. He is currently not responding to anything but sternal rub. Patient's POA hospice nurse are present in the room. They confirmed that the patient does not want any advanced measures including intubation or CPR. The hospice nurse states that they can take him home as he is already on oxygen they can escalate care and have somebody sit by the bedside since he is not responding. Patient's power of associate attorney is amenable to this as she does not want any advanced measures. Patient will be transported home when squad is available. Impression: 1. Altered mental status 2. Closed head injury 3. Superficial facial laceration 4. Right humerus fracture 5. Left distal radius fracture 6. Hypoxia Lab Data Attestation: I reviewed the patient's lab results. Labs: Laboratory Results - last 24 hr 01/06/23 20:20 WBC 8.4 RBC 3.75 L Hgb 10.5 L Hct 35.3 L MCV 94.1 H MCH 28.0 MCHC 29.7 L RDW Std Deviation 62.9 H RDW Coeff of Cory 18.2 H Plt Count 164 MPV 10.9 Immature Gran % (Auto) 0.500 Neut % (Auto) 64.5 Lymph % (Auto) 23.6 Rolette % (Auto) 8.4 Eos % (Auto) 2.3 Baso % (Auto) 0.7 Absolute Neuts (auto) 5.4 Absolute Lymphs (auto) 1.99 Nucleated RBC % 0 Sodium 137 Potassium 4.9 Chloride 96 L Carbon Dioxide 40.0 H Anion Gap 1 L BUN 22 H Creatinine 0.96 Estim Creat Clear Calc 53.86 Est GFR (MDRD) Af Amer 97 Est GFR (MDRD) Non-Af 80 BUN/Creatinine Ratio 23.0 H Glucose 94 Calcium 9.5 Total Bilirubin 0.30 AST 14 L ALT 15 L Alkaline Phosphatase 65 Troponin I High Sens 19 Total Protein 7.3 Albumin 3.0 L Globulin 4.3 H Albumin/Globulin Ratio 0.7 L Urine Color Yellow Urine Clarity Clear Urine pH 7.0 Ur Specific Cecil 1.015 Urine Protein 15 H Urine Glucose (UA) Normal Urine Ketones Negative Urine Occult Blood 10 H Urine Nitrite Negative Urine Bilirubin Negative Urine Urobilinogen Normal Ur Leukocyte Esterase 25 H Urine RBC 0 SEEN Urine WBC 0-5 SEEN Ur Squamous Epith Cells 0-5 SEEN Urine Bacteria 0 SEEN Urine Mucus 0 SEEN Digoxin 0.79 L Radiography Diagnostic Testing: Clinical Impression(s) from Imaging Studies Brain CT 01/06/23 20:02 IMPRESSION: Mild atrophy and periventricular white matter ischemic change. No acute intracranial bleed. 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 No acute fracture or other significant abnormality Electronically Signed: Efra Cho MD at 21:34 EDT , Shoulder X-Ray 01/06/23 20:04 IMPRESSION: Acute mildly impacted fracture of the right humeral head and neck. Electronically Signed: Efra Cho MD at 21:38 EDT , Wrist X-Ray 01/06/23 20:04 IMPRESSION: Acute minimally impacted distal radial fracture Electronically Signed: Efra Cho MD at 21:40 EDT , Chest X-Ray 01/06/23 20:40 IMPRESSION: COPD and predominantly bibasilar chronic interstitial thickening. . Cannot definitively exclude coexisting mild inflammatory changes at the right base Electronically Signed: Efra Cho MD at 21:37 EDT , Discharge Plan Triage Chief Complaint: Fall ED Provider: Rony Luciano Dx/Rx/DC Orders Instructions: ED Fracture, Shoulder, ED Fracture, Wrist, General, ED Fall Prevention Prescriptions: No Action tamsulosin 0.4 mg Capsule 0.4 mg PO DAILY pantoprazole [Protonix] 40 mg Tablet,Delayed Release (Dr/Ec) 40 mg PO DAILY albuterol sulfate 90 mcg/actuation Hfa Aerosol Inhaler 1 puff INHALATION Q6H finasteride 5 mg Tablet 5 mg PO DAILY apixaban 2.5 mg 2.5 mg PO/SL BID metoprolol tartrate 75 mg tablet 150 mg PO BID 30 Days Qty: 120 0RF metoprolol succinate 100 mg tablet extended release 24 hr 100 mg PO DAILY 30 Days Qty: 30 0RF aripiprazole 5 mg tablet 5 mg PO DAILY Patient Comments: take 1 tablet by mouth once daily digoxin 125 mcg (0.125 mg) tablet 0.125 mg PO .QOD Patient Comments: take 1 tablet by mouth once daily Entresto 24-26 mg tablet 1 tab PO DAILY ciprofloxacin HCl 250 mg tablet 250 mg PO Q12H Patient Comments: take 1 tablet by mouth twice a day until finished Rx Instructions: FILLED 12/07 citalopram [Celexa] 10 mg tablet 10 mg PO DAILY cyanocobalamin (vitamin B-12) 1,000 mcg tablet 1,000 mcg PO DAILY magnesium oxide 420 mg tablet 420 mg PO BID Primary Care Provider: Mikey Castaneda Chi Referrals: Mikey Castaneda Chi, MD [Primary Care Provider] - Disposition Disposition: Home, Self Care
--- NOTE | 2023-01-06 23:31 | NURSING ---
[facility] CALLED ETA 30 MIN
[2023-01-07 00:10] VITALS: BP 148/73; PULSE 16; O2SAT 95
--- NOTE | 2023-01-07 00:12 | ED.RN ---
Pt discharged home via EMS, Hospice nurse to follow squad to pt's home and assist with care. CARLEE Boyer at bedside. Pt remains lethargic, responds only to painful stimuli.
== END 2023-01-07 00:14 | disposition home or self-care (01) ==
PROVIDERS: Emergency Provider Student in an Organized Health Care Education/Training Program; PCP Family Medicine Geriatric Medicine; Visit Provider Student in an Organized Health Care Education/Training Program
DX: S01.81XA Laceration without foreign body of other part of head, initial encounter (principal); J44.9 Chronic obstructive pulmonary disease, unspecified; I48.91 Unspecified atrial fibrillation; R09.02 Hypoxemia; F17.210 Nicotine dependence, cigarettes, uncomplicated; S52.502A Unspecified fracture of the lower end of left radius, initial encounter for closed fracture; W06.XXXA Fall from bed, initial encounter; Z79.01 Long term (current) use of anticoagulants; Z79.899 Other long term (current) drug therapy; F17.290 Nicotine dependence, other tobacco product, uncomplicated; R41.82 Altered mental status, unspecified; S09.90XA Unspecified injury of head, initial encounter
CPT/HCPCS: 70450; 71045; 72125; 73030; 73110; 80053; 80162; 81001; 84484; 85025; 87428; 93005; 96374; 96375; 99285; A4216; J2405